=== PATIENT | male | born 1945 | race Caucasian/White ===

== ENCOUNTER → 2018-02-06 10:58 | Outpatient (CLI) | payer OTHER, SELFPAY ==
[2018-02-06 12:56] LABS: Add Manual Diff / Slide Review NO; Basophils Percent Auto 0.8 % (0-2); Hematocrit 45.1 % (41-53); Hemoglobin 15.6 g/dL (13.5-17.5); Lymphocytes Percent Auto 33.4 % (25-40); Mean Corpuscular HGB Conc 34.7 % (30-36); Neutrophils Absolute Auto 3400 /uL (3000-5900); Neutrophils Percent Auto 54.8 % (50-75); Platelet Count 172 X10^3/uL (150-400); Red Cell Distribution Width 13.4 % (11.6-14.8); White Blood Cell Count 6.1 X10^3/uL (4.5-11.0)
[2018-02-06 13:05] LABS: Aspartate Aminotransferase 56 IU/L (17-59); BUN Creatinine Ratio 22.5 (6-22); Calcium 9.7 mg/dL (8.4-10.2); Cholesterol 133 mg/dL (140-199); Estimated Glomerular Filt Rate > 60.0 mL/min (>60); Glucose 106 mg/dL (80-110); HDL Cholesterol 59 mg/dL (40-60); HEMOLYSIS 15 (0-50); LDL Cholesterol Calculated 61 mg/dL (<100); Potassium 4.4 mmol/L (3.4-5.1); Sodium 143 mmol/L (137-145); Triglycerides 66 mg/dL (35-150)
[2018-02-06 13:31] LABS: Prostate Specific Antigen 0.233 ng/mL (0.10-4.00)
[2018-02-06 13:52] LABS: Thyroid Stimulating Hormone 0.07 uIU/mL (0.47-4.68)
[2018-02-10 09:04] LABS: Lamotrigine Lamictal 9.2 mcg/mL (4.0-18.0)
== END ==
PROVIDERS: Family Provider Internal Medicine; PCP Internal Medicine; Visit Provider Internal Medicine
DX: G40.802 Other epilepsy, not intractable, without status epilepticus (principal); E78.00 Pure hypercholesterolemia, unspecified; Z00.00 Encounter for general adult medical examination without abnormal findings; N40.0 Benign prostatic hyperplasia without lower urinary tract symptoms
CPT/HCPCS: 36415; 80048; 80061; 80175; 84153; 84443; 84450; 85025

== ENCOUNTER → 2018-07-07 13:59 | Outpatient (CLI) | payer OTHER, SELFPAY ==
[2018-07-07 16:01] LABS: Vitamin B12 408 pg/mL (239-931)
== END ==
PROVIDERS: Family Provider Internal Medicine; PCP Internal Medicine; Visit Provider Internal Medicine
DX: E53.8 Deficiency of other specified B group vitamins (principal)
CPT/HCPCS: 36415; 82607

== ENCOUNTER → 2018-11-12 11:50 | Outpatient (CLI) | payer OTHER, SELFPAY ==
--- NOTE | 2018-11-12 | DI.RAD.S_ITS ---
PROCEDURE: XR CHEST 2V INDICATIONS: COUGH TECHNIQUE: 2 views of the chest were acquired. COMPARISON: [facility], , CHEST 1 VIEW, 04/10/2011, 11:03. FINDINGS: Surgical changes and devices: None. Lungs and pleura: Lungs are clear. No pleural effusions or pneumothorax. Mediastinum: Mediastinal contours are normal. Heart size is normal. Bones and chest wall: No suspicious bony abnormalities. Soft tissues appear unremarkable. IMPRESSION: No evidence acute pulmonary process. Dictated by: Erich Shah M.D. on 11/12/2018 at 13:27 Approved by: Erich Shah M.D. on 11/12/2018 at 13:29
[2018-11-12 12:31] LABS: B Type Natriuretic Peptide 248 (<100)
[2018-11-12 13:30] LABS: Blood Urea Nitrogen 16 mg/dL (9-20); Calcium 9.4 mg/dL (8.4-10.2); Carbon Dioxide 29 mmol/L (22-32); Chloride 100 mmol/L (98-107); Estimated Glomerular Filt Rate > 60.0 mL/min (>60); Glucose 95 mg/dL (80-110); HEMOLYSIS < 15 (0-50); Potassium 4.1 mmol/L (3.4-5.1); Sodium 140 mmol/L (137-145)
== END ==
PROVIDERS: PCP Internal Medicine; Visit Provider Student in an Organized Health Care Education/Training Program
DX: R60.9 Edema, unspecified (principal); R05 Cough
CPT/HCPCS: 36415; 71046; 80048; 83880

== ENCOUNTER → 2018-11-19 13:51 | Outpatient (CLI) | payer OTHER, SELFPAY ==
--- NOTE | 2018-11-19 | DI.ECHO.S_ITS ---
[facility] +---------+ : : [address] [place] : : : : [id number] : : : : Phone: [phone]+ Echocardiogram Report + + :Name: MAREI ADAMS Study Date: 11/19/2018 Height: 74 in : :[facility] Weight: 186 lb : : Gender: Male BSA: 2.1 m2 : :: 1945 Age: 73 yrs BP: 134/64 mmHg: :Reason For Study: Edema : : Performed By: Keyona Turner : :Referring: JANELLE WAITE : + + Interpretation Summary 1) Normal left ventricular size, wall motion, and systolic function (EF 55- 60%). 2) Mildly enlarged right ventricle with mildly reduced function. 3) There is severe biatrial enlargement. 4) There is a flat closure plane of the the mitral valve leaflets. There is mild mitral regurgitation. 5) There is mild to moderate aortic regurgitation. 6) A patent foramen ovale is present. The interatrial septum bows toward right atrium consistent with elevated left atrial pressure. 7) The right ventricular systolic pressure is estimated to be at least 33 mmHg based on an estimated right atrial pressure of 8 mm Hg. 8) No prior Echo available for comparison. Procedure: A two-dimensional transthoracic echocardiogram with color flow and Doppler was performed. The study quality was technically adequate. Comparison is made with the echocardiogram of 04-11-11. The patient was in normal sinus rhythm during the exam. Left Ventricle: The left ventricle is normal in size. Left ventricular wall thickness is at the upper limits of normal. The ejection fraction is estimated to be 55-60%. Left ventricular systolic function is normal. Diastolic parameters suggest a relaxation abnormality of the left ventricle, consistent with probable normal filling pressures. Right Ventricle: The right ventricle is mildly dilated. Right ventricular systolic function is mildly reduced. Atria: There is severe biatrial enlargement. A patent foramen ovale is present. The interatrial septum bows toward right atrium consistent with elevated left atrial pressure. Mitral Valve: There is a flat closure plane of the the mitral valve leaflets. There is mild mitral regurgitation. Aortic Valve: The aortic valve is trileaflet. Leaflet mobility is mildly reduced. There is no aortic valve stenosis. There is mild to moderate aortic regurgitation. Tricuspid Valve: The tricuspid valve leaflets are thin and pliable. There is mild tricuspid regurgitation. The right ventricular systolic pressure is estimated to be at least 33 mmHg based on an estimated right atrial pressure of 8 mm Hg. Pulmonic Valve: The pulmonic valve is not well visualized. There is trace pulmonic regurgitation. Great Vessels: The aortic root is mildly dilated. The ascending aorta is mildly enlarged. The IVC is of normal diameter and collapses less than 50% with a sniff. This suggests a right atrial pressure of 8 mm Hg. Pericardium/ Pleura There is no pericardial effusion. There is no pleural effusion. MMode/2D Measurements & Calculations LVIDd: 4.8 cm Ao root diam: 3.9 cm LVIDs: 2.9 cm Aortic Jxn: 3.0 cm FS: 38.6 % asc Aorta Diam: 3.8 cm IVSd: 1.1 cm Ao Arch Diam (Prox Trans): 3.1 cm LVPWd: 1.1 cm LV west. diameter/BSA (cm/m^2): 2.3 LV sys. diameter/BSA (cm/m^2): 1.4 LA dimension: 5.6 cm RA long axis: 7.6 cm LA A2 area: 42.8 cm2 RA area: 41.9 cm2 LA A4 area: 43.6 cm2 RA vol: 196.6 ml LA length (vol): 7.6 cm RA : 93.3 ml/m2 LA vol: 207.8 ml IVC diam: 1.9 cm LA vol index: 98.6 ml/m2 RVDd major: 5.8 cm RVD1 (basal): 5.1 cm RVD2 (mid): 4.5 cm ELIAN (plan): 2.1 cm2 Doppler Measurements & Calculations Ao V2 max: 172.8 cm/sec AI P1/2t: 371.8 msec Ao V2 mean: 118.2 cm/sec AI dec slope: 339.6 cm/sec2 Ao max P.0 mmHg Ao mean P.3 mmHg Ao V2 VTI: 37.4 cm MV E max prasanna: 67.0 cm/sec TR max prasanna: 250.3 cm/sec MV A max prasanna: 27.4 cm/sec TR max P.1 mmHg MV E/A: 2.4 PA V2 max: 83.0 cm/sec Med Peak E' Prasanna: 5.8 cm/sec PA V2 mean: 53.6 cm/sec E/E' med: 11.6 PA mean P.4 mmHg Lat Peak E' Prasanna: 11.4 cm/sec PA Accel Time: 0.14 sec E/E' lat: 5.9 E/e' average: 8.7 MV dec time: 0.16 sec MV P1/2t: 48.3 msec MR ERO: 0.19 cm2 MV P1/2t max prasanna: 66.7 cm/sec MR flow rate: 108.8 cm3/sec MVA(P1/2t): 4.6 cm2 MR PISA radius: 0.67 cm Reading Physician:04:50 PM
[2018-11-19 16:11] LABS: Blood Urea Nitrogen 14 mg/dL (9-20); Calcium 10.1 mg/dL (8.4-10.2); Carbon Dioxide 31 mmol/L (22-32); Chloride 98 mmol/L (98-107); Estimated Glomerular Filt Rate > 60.0 mL/min (>60); Glucose 97 mg/dL (80-110); HEMOLYSIS < 15 (0-50); Potassium 4.8 mmol/L (3.4-5.1); Sodium 140 mmol/L (137-145)
== END ==
PROVIDERS: PCP Internal Medicine; Visit Provider Student in an Organized Health Care Education/Training Program
DX: I08.3 Combined rheumatic disorders of mitral, aortic and tricuspid valves (principal); Q21.1 Atrial septal defect; R60.9 Edema, unspecified
CPT/HCPCS: 36415; 80048; 93306

== ENCOUNTER → 2019-05-25 13:38 | Outpatient (CLI) | payer OTHER, SELFPAY ==
[2019-05-28 14:05] LABS: Lamotrigine Lamictal 8.1 mcg/mL (4.0-18.0)
== END ==
PROVIDERS: PCP Internal Medicine; Visit Provider Specialist
DX: G40.119 Localization-related (focal) (partial) symptomatic epilepsy and epileptic syndromes with simple partial seizures, intractable, without status epilepticus (principal)
CPT/HCPCS: 36415; 80175

== ENCOUNTER → 2019-07-14 11:27 | Outpatient (CLI) | payer OTHER, SELFPAY ==
[2019-07-17 08:23] LABS: Lamotrigine Lamictal 13.3 mcg/mL (4.0-18.0)
== END ==
PROVIDERS: Family Provider Internal Medicine; PCP Internal Medicine; Visit Provider Specialist
DX: G40.119 Localization-related (focal) (partial) symptomatic epilepsy and epileptic syndromes with simple partial seizures, intractable, without status epilepticus (principal); G31.09 Other frontotemporal neurocognitive disorder; F02.80 Dementia in other diseases classified elsewhere, unspecified severity, without behavioral disturbance, psychotic disturbance, mood disturbance, and anxiety; F03.90 Unspecified dementia, unspecified severity, without behavioral disturbance, psychotic disturbance, mood disturbance, and anxiety
CPT/HCPCS: 36415; 80175

== ENCOUNTER → 2020-08-16 19:16 | Outpatient (ROUT) | payer OTHER, SELFPAY ==
[2020-08-16 19:30] LABS: Add Manual Diff / Slide Review NO; Basophils Absolute Auto 100 /uL (0-100); Basophils Percent Auto 0.9 % (0-2); Eosinophils Absolute Auto 100 /uL (0-450); Eosinophils Percent Auto 1.9 % (2-4); Hematocrit 45.4 % (41-53); Hemoglobin 15.2 g/dL (13.5-17.5); Lymphocytes Absolute Auto 1600 /uL (1100-4500); Lymphocytes Percent Auto 24.6 % (25-40); Mean Corpuscular HGB Conc 33.5 % (30-36); Mean Corpuscular Hemoglobin 33.5 PG (26-34); Monocytes Absolute Auto 400 /uL (0-900); Monocytes Percent Auto 6.7 % (3-14); Neutrophils Absolute Auto 4200 /uL (1500-7000); Neutrophils Percent Auto 65.9 % (50-75); Platelet Count 175 X10^3/uL (150-400); Red Blood Cell Count 4.54 X10^6/uL (4.5-5.9); Red Cell Distribution Width 13.8 % (11.6-14.8); White Blood Cell Count 6.3 X10^3/uL (4.5-11.0)
[2020-08-16 19:34] LABS: Alanine Aminotransferase 26 IU/L (<50); Albumin 4.9 g/dL (3.5-5.0); Albumin Globulin Ratio 1.5 (1.0-2.8); Alkaline Phosphatase 100 U/L (38-126); Aspartate Aminotransferase 40 IU/L (17-59); BUN Creatinine Ratio 19.5 (6-22); Bilirubin Total 1.1 mg/dL (0.2-1.3); Blood Urea Nitrogen 17 mg/dL (9-20); Calcium 9.5 mg/dL (8.4-10.2); Carbon Dioxide 29 mmol/L (22-32); Chloride 101 mmol/L (98-107); Cholesterol 146 mg/dL (140-199); Estimated Glomerular Filt Rate > 60.0 mL/min (>60); Globulin 3.3 g/dL (1.7-4.1); Glucose 124 mg/dL (80-110); HDL Cholesterol 79 mg/dL (40-60); HEMOLYSIS < 15 (0-50); LDL Cholesterol Calculated 52 mg/dL (<100); Potassium 4.3 mmol/L (3.4-5.1); Sodium 137 mmol/L (137-145); Total Protein 8.2 g/dL (6.3-8.2); Triglycerides 76 mg/dL (35-150)
[2020-08-16 20:04] LABS: Prostate Specific Antigen 0.446 ng/mL (0.10-4.00); TSH w/ Reflex to FT4 2.37 uIU/mL (0.47-4.68)
[2020-08-21 15:14] LABS: Lamotrigine Lamictal 10.1 ug/mL (2.0-20.0)
== END ==
PROVIDERS: Family Provider Internal Medicine; PCP Internal Medicine; Visit Provider Internal Medicine
DX: G40.802 Other epilepsy, not intractable, without status epilepticus (principal)
CPT/HCPCS: 80053; 80061; 80175; 84153; 84443; 85025

== ENCOUNTER → 2021-06-01 17:10 | Outpatient (CLI) | payer OTHER, SELFPAY ==
[2021-06-04 14:51] LABS: Lamotrigine Lamictal 10.9 ug/mL (2.0-20.0)
== END ==
PROVIDERS: Family Provider Internal Medicine; PCP Internal Medicine; Referring Provider Specialist; Visit Provider Specialist
DX: G40.109 Localization-related (focal) (partial) symptomatic epilepsy and epileptic syndromes with simple partial seizures, not intractable, without status epilepticus (principal)
CPT/HCPCS: 36415; 80175

== ENCOUNTER → 2021-07-16 15:51 | Outpatient (CLI) | payer OTHER, SELFPAY | PROVIDERS: Family Provider Internal Medicine; PCP Internal Medicine; Referring Provider Specialist; Visit Provider Specialist | DX: G40.109 Localization-related (focal) (partial) symptomatic epilepsy and epileptic syndromes with simple partial seizures, not intractable, without status epilepticus (principal) | CPT/HCPCS: 36415; 80175 ==

== ENCOUNTER → 2021-09-06 13:58 | Outpatient (CLI) | payer OTHER, SELFPAY ==
[2021-09-06 15:06] LABS: Add Manual Diff / Slide Review NO; Basophils Absolute Auto 0 /uL (0-100); Basophils Percent Auto 0.5 % (0-2); Eosinophils Absolute Auto 200 /uL (0-450); Eosinophils Percent Auto 2.1 % (2-4); Hematocrit 43.4 % (41-53); Hemoglobin 14.8 g/dL (13.5-17.5); Lymphocytes Absolute Auto 1400 /uL (1100-4500); Lymphocytes Percent Auto 19.1 % (25-40); Mean Corpuscular Hemoglobin 34.2 PG (26-34); Mean Corpuscular Volume 100.7 fL (80-100); Monocytes Absolute Auto 700 /uL (0-900); Monocytes Percent Auto 9.1 % (3-14); Neutrophils Absolute Auto 5200 /uL (1500-7000); Neutrophils Percent Auto 69.2 % (50-75); Platelet Count 182 X10^3/uL (150-400); Red Blood Cell Count 4.32 X10^6/uL (4.5-5.9); Red Cell Distribution Width 13.3 % (11.6-14.8); White Blood Cell Count 7.6 X10^3/uL (4.5-11.0)
[2021-09-06 15:49] LABS: Alanine Aminotransferase 32 IU/L (<50); Albumin 4.4 g/dL (3.5-5.0); Albumin Globulin Ratio 1.6 (1.0-2.8); Alkaline Phosphatase 83 U/L (38-126); Aspartate Aminotransferase 36 IU/L (17-59); BUN Creatinine Ratio 26.8 (6-22); Bilirubin Total 0.9 mg/dL (0.2-1.3); Bilirubin Unconjugated 0.9 mg/dL (0.0-1.1); Blood Urea Nitrogen 26 mg/dL (9-20); Calcium 9.2 mg/dL (8.4-10.2); Carbon Dioxide 31 mmol/L (22-32); Chloride 102 mmol/L (98-107); Estimated Glomerular Filt Rate > 60.0 mL/min (>60); Globulin 2.8 g/dL (1.7-4.1); Glucose 84 mg/dL (80-110); HEMOLYSIS < 15 (0-50); Potassium 4.4 mmol/L (3.4-5.1); Sodium 140 mmol/L (137-145); Total Protein 7.2 g/dL (6.3-8.2)
== END ==
PROVIDERS: Family Provider Internal Medicine; PCP Internal Medicine; Referring Provider Physician Assistant; Visit Provider Physician Assistant
DX: I27.82 Chronic pulmonary embolism (principal); I48.3 Typical atrial flutter; I48.0 Paroxysmal atrial fibrillation; R21 Rash and other nonspecific skin eruption
CPT/HCPCS: 36415; 80053; 80076; 85025

== ENCOUNTER → 2021-09-24 16:21 | Outpatient (CLI) | payer OTHER, SELFPAY ==
[2021-09-28 10:26] LABS: Levetiracetam Keppra 15.9 ug/mL (10.0-40.0)
== END ==
PROVIDERS: Family Provider Internal Medicine; PCP Internal Medicine; Referring Provider Specialist; Visit Provider Specialist
DX: G40.109 Localization-related (focal) (partial) symptomatic epilepsy and epileptic syndromes with simple partial seizures, not intractable, without status epilepticus (principal)
CPT/HCPCS: 36415; 80177

== ENCOUNTER → 2022-01-07 12:43 | Outpatient (CLI) | payer OTHER, SELFPAY ==
[2022-01-07 13:32] LABS: Hematocrit 47.6 % (41-53); Hemoglobin 15.9 g/dL (13.5-17.5); Mean Corpuscular HGB Conc 33.4 % (30-36); Mean Corpuscular Hemoglobin 33.5 PG (26-34); Mean Corpuscular Volume 100.4 fL (80-100); Platelet Count 186 X10^3/uL (150-400); Red Blood Cell Count 4.74 X10^6/uL (4.5-5.9); Red Cell Distribution Width 13.6 % (11.6-14.8); White Blood Cell Count 6.1 X10^3/uL (4.5-11.0)
[2022-01-07 13:59] LABS: Alanine Aminotransferase 20 IU/L (<50); Albumin 4.1 g/dL (3.5-5.0); Albumin Globulin Ratio 1.4 (1.0-2.8); Alkaline Phosphatase 94 U/L (38-126); Aspartate Aminotransferase 34 IU/L (17-59); BUN Creatinine Ratio 20.2 (6-22); Blood Urea Nitrogen 18 mg/dL (9-20); Calcium 8.8 mg/dL (8.4-10.2); Carbon Dioxide 30 mmol/L (22-32); Chloride 104 mmol/L (98-107); Cholesterol 111 mg/dL (140-199); Estimated Glomerular Filt Rate > 60 mL/min (>60); Glucose 96 mg/dL (80-110); HDL Cholesterol 51 mg/dL (40-60); HEMOLYSIS < 15 (0-50); LDL Cholesterol Calculated 35 mg/dL (<100); Potassium 4.4 mmol/L (3.4-5.1); Sodium 138 mmol/L (137-145); Total Protein 7.1 g/dL (6.3-8.2); Triglycerides 123 mg/dL (35-150); Uric Acid 4.5 mg/dL (3.5-8.5)
[2022-01-07 14:26] LABS: TSH w/ Reflex to FT4 2.32 uIU/mL (0.47-4.68)
== END ==
PROVIDERS: Family Provider Internal Medicine; PCP Internal Medicine; Referring Provider Internal Medicine; Visit Provider Internal Medicine
DX: E78.2 Mixed hyperlipidemia (principal); I10 Essential (primary) hypertension; I48.20 Chronic atrial fibrillation, unspecified; M1A.9XX0 Chronic gout, unspecified, without tophus (tophi); Z79.01 Long term (current) use of anticoagulants; Z86.711 Personal history of pulmonary embolism
CPT/HCPCS: 36415; 80053; 80061; 84443; 84550; 85027

== ENCOUNTER → 2022-02-21 11:27 | Outpatient (CLI) | payer OTHER, SELFPAY ==
[2022-02-21 13:52] LABS: INR 2.2 (0.9-1.3)
== END ==
PROVIDERS: Family Provider Internal Medicine; PCP Internal Medicine; Referring Provider Registered Nurse Diabetes Educator; Visit Provider Registered Nurse Diabetes Educator
DX: Z79.01 Long term (current) use of anticoagulants (principal)
CPT/HCPCS: 36415; 85610

== ENCOUNTER → 2022-03-22 11:06 | Outpatient (CLI) | payer OTHER, SELFPAY | PROVIDERS: Family Provider Internal Medicine; PCP Internal Medicine; Referring Provider Internal Medicine; Visit Provider Internal Medicine | DX: Z13.820 Encounter for screening for osteoporosis (principal); M85.89 Other specified disorders of bone density and structure, multiple sites | CPT/HCPCS: 77080 ==

== ENCOUNTER → 2022-04-10 09:19 | Outpatient (CLI) | payer OTHER, SELFPAY ==
[2022-04-10 11:01] LABS: Hemoglobin 13.3 g/dL (13.5-17.5); Mean Corpuscular HGB Conc 33.2 % (30-36); Mean Corpuscular Hemoglobin 32.6 PG (26-34); Mean Corpuscular Volume 98.3 fL (80-100); Platelet Count 190 X10^3/uL (150-400); Red Blood Cell Count 4.07 X10^6/uL (4.5-5.9); White Blood Cell Count 4.9 X10^3/uL (4.5-11.0)
[2022-04-10 11:22] LABS: Alanine Aminotransferase 18 IU/L (<50); Albumin 4.3 g/dL (3.5-5.0); Albumin Globulin Ratio 1.6 (1.0-2.8); Alkaline Phosphatase 99 U/L (38-126); Aspartate Aminotransferase 33 IU/L (17-59); BUN Creatinine Ratio 23.2 (6-22); Bilirubin Total 0.6 mg/dL (0.2-1.3); Blood Urea Nitrogen 16 mg/dL (9-20); Calcium 8.7 mg/dL (8.4-10.2); Carbon Dioxide 29 mmol/L (22-32); Chloride 103 mmol/L (98-107); Estimated Glomerular Filt Rate > 60 mL/min (>60); Globulin 2.7 g/dL (1.7-4.1); Glucose 88 mg/dL (80-110); HEMOLYSIS < 15 (0-50); Potassium 3.7 mmol/L (3.4-5.1); Sodium 140 mmol/L (137-145)
[2022-04-10 11:53] LABS: Testosterone 186 ng/dL (71.8-623)
[2022-04-12 20:28] LABS: Parathyroid Hormone, Intact 75 pg/mL (15-65)
== END ==
PROVIDERS: Family Provider Internal Medicine; PCP Internal Medicine; Referring Provider Internal Medicine; Visit Provider Internal Medicine
DX: E21.3 Hyperparathyroidism, unspecified (principal); M85.80 Other specified disorders of bone density and structure, unspecified site
CPT/HCPCS: 36415; 80053; 82310; 83970; 84403; 85027

== ENCOUNTER → 2022-05-15 16:11 | Outpatient (CLI) | payer OTHER, SELFPAY ==
[2022-05-15 17:51] LABS: INR 3.2 (0.9-1.3); Prothrombin Time 37.6 SECONDS (10.1-12.7)
== END ==
PROVIDERS: Family Provider Internal Medicine; PCP Internal Medicine; Referring Provider Internal Medicine; Visit Provider Internal Medicine
DX: Z79.01 Long term (current) use of anticoagulants (principal)
CPT/HCPCS: 36415; 85610

== ENCOUNTER → 2022-06-07 14:44 | Outpatient (CLI) | payer OTHER, SELFPAY ==
[2022-06-07 16:05] LABS: INR 2.6 (0.9-1.3); Prothrombin Time 30.6 SECONDS (10.1-12.7)
== END ==
PROVIDERS: Family Provider Internal Medicine; PCP Internal Medicine; Referring Provider Internal Medicine; Visit Provider Internal Medicine
DX: Z79.01 Long term (current) use of anticoagulants (principal)
CPT/HCPCS: 85610

== ENCOUNTER → 2022-06-14 14:53 | Outpatient (CLI) | payer OTHER, SELFPAY ==
[2022-06-14 17:55] LABS: Prolactin 11.1 ng/mL (3.7-17.9)
[2022-06-14 17:59] LABS: Follicle Stimulating Hormone 59.8 mIU/mL; Luteinizing Hormone 26.6 mIU/mL
[2022-06-14 18:12] LABS: Testosterone 277 ng/dL (71.8-623)
== END ==
PROVIDERS: Family Provider Internal Medicine; PCP Internal Medicine; Referring Provider Internal Medicine; Visit Provider Internal Medicine
DX: D35.2 Benign neoplasm of pituitary gland (principal)
CPT/HCPCS: 36415; 83001; 83002; 84146; 84403; 84443

== ENCOUNTER → 2022-06-25 11:31 | Outpatient (CLI) | payer OTHER, SELFPAY ==
[2022-06-25 13:35] LABS: Add Manual Diff / Slide Review NO; Basophils Absolute Auto 0 /uL (0-100); Basophils Percent Auto 0.8 % (0-2); Eosinophils Absolute Auto 200 /uL (0-450); Eosinophils Percent Auto 5.3 % (2-4); Hematocrit 44.9 % (41-53); Lymphocytes Absolute Auto 1000 /uL (1100-4500); Mean Corpuscular HGB Conc 33.5 % (30-36); Mean Corpuscular Hemoglobin 32.7 PG (26-34); Mean Corpuscular Volume 97.5 fL (80-100); Monocytes Absolute Auto 400 /uL (0-900); Monocytes Percent Auto 8.6 % (3-14); Neutrophils Absolute Auto 2900 /uL (1500-7000); Neutrophils Percent Auto 63.3 % (50-75); Platelet Count 162 X10^3/uL (150-400); Red Cell Distribution Width 13.6 % (11.6-14.8); White Blood Cell Count 4.5 X10^3/uL (4.5-11.0)
[2022-06-25 14:01] LABS: Alanine Aminotransferase 23 IU/L (<50); Albumin 4.4 g/dL (3.5-5.0); Albumin Globulin Ratio 1.4 (1.0-2.8); Alkaline Phosphatase 85 U/L (38-126); Aspartate Aminotransferase 37 IU/L (17-59); BUN Creatinine Ratio 19.8 (6-22); Bilirubin Total 0.9 mg/dL (0.2-1.3); Blood Urea Nitrogen 16 mg/dL (9-20); Calcium 9.1 mg/dL (8.4-10.2); Carbon Dioxide 33 mmol/L (22-32); Chloride 99 mmol/L (98-107); Estimated Glomerular Filt Rate > 60 mL/min (>60); Globulin 3.2 g/dL (1.7-4.1); Glucose 64 mg/dL (80-110); HEMOLYSIS < 15 (0-50); Potassium 4.1 mmol/L (3.4-5.1); Sodium 141 mmol/L (137-145); Total Protein 7.6 g/dL (6.3-8.2)
[2022-06-27 13:57] LABS: Levetiracetam Keppra 10.6 ug/mL (10.0-40.0)
== END ==
PROVIDERS: Family Provider Internal Medicine; PCP Internal Medicine; Referring Provider Psychiatry & Neurology Neurology; Visit Provider Psychiatry & Neurology Neurology
DX: G40.109 Localization-related (focal) (partial) symptomatic epilepsy and epileptic syndromes with simple partial seizures, not intractable, without status epilepticus (principal); Z51.81 Encounter for therapeutic drug level monitoring
CPT/HCPCS: 36415; 80053; 80177; 85025

== ENCOUNTER → 2022-07-04 12:00 | Outpatient (CLI) | payer OTHER, SELFPAY ==
[2022-07-04 12:55] LABS: INR 2.8 (0.9-1.3); Prothrombin Time 32.7 SECONDS (10.1-12.7)
[2022-07-04 13:09] LABS: C-Reactive Protein Quant < 0.5 mg/dL (<1.0)
[2022-07-08 17:41] LABS: ANA Screen, IFA Negative (.)
== END ==
PROVIDERS: Family Provider Internal Medicine; PCP Internal Medicine; Referring Provider Physician Assistant; Visit Provider Physician Assistant
DX: R21 Rash and other nonspecific skin eruption (principal); I48.20 Chronic atrial fibrillation, unspecified; Z79.01 Long term (current) use of anticoagulants; Z86.711 Personal history of pulmonary embolism
CPT/HCPCS: 36415; 85610; 86038; 86140

== ENCOUNTER → 2022-07-12 15:18 | Outpatient (CLI) | payer OTHER, SELFPAY ==
[2022-07-12 16:28] LABS: Add Manual Diff / Slide Review NO; Basophils Absolute Auto 0 /uL (0-100); Basophils Percent Auto 0.8 % (0-2); Eosinophils Absolute Auto 100 /uL (0-450); Eosinophils Percent Auto 2.1 % (2-4); Hematocrit 41.7 % (41-53); Lymphocytes Absolute Auto 1000 /uL (1100-4500); Lymphocytes Percent Auto 22.4 % (25-40); Mean Corpuscular HGB Conc 33.4 % (30-36); Mean Corpuscular Hemoglobin 32.2 PG (26-34); Mean Corpuscular Volume 96.3 fL (80-100); Monocytes Absolute Auto 400 /uL (0-900); Monocytes Percent Auto 8.2 % (3-14); Neutrophils Absolute Auto 3000 /uL (1500-7000); Neutrophils Percent Auto 66.5 % (50-75); Platelet Count 181 X10^3/uL (150-400); Red Blood Cell Count 4.33 X10^6/uL (4.5-5.9); Red Cell Distribution Width 13.3 % (11.6-14.8); White Blood Cell Count 4.5 X10^3/uL (4.5-11.0)
[2022-07-12 17:35] LABS: Erythrocyte Sedimentation Rate 6 MM/HR (0-15)
[2022-07-13 04:14] LABS: IGA 481 mg/dL (61-437); IGG 993 mg/dL (603-1613); IGM 63 mg/dL (15-143)
== END ==
PROVIDERS: Family Provider Internal Medicine; PCP Internal Medicine; Referring Provider Physician Assistant; Visit Provider Physician Assistant
DX: R21 Rash and other nonspecific skin eruption (principal)
CPT/HCPCS: 36415; 82784; 85025; 85651

== ENCOUNTER → 2022-11-08 14:52 | Outpatient (CLI) | payer OTHER, SELFPAY ==
--- NOTE | 2022-11-08 14:56 | DI.RAD.S_ITS ---
PROCEDURE: XR HIP W PEL IF DONE RT 2V INDICATIONS: right hip pain TECHNIQUE: 3 views of the hip were acquired. COMPARISON: None. FINDINGS: Bones: Moderate right hip joint space narrowing with subchondral sclerosis. No remodeling present. No significant marginal osteophyte. Degenerative changes noted lower lumbar spine. Atherosclerotic vascular calcification present. Soft tissues: No suspicious soft tissue calcifications or masses. IMPRESSION: Moderate right hip osteoarthritis Degenerative lower lumbar spine Approved by: Xavi Valero M.D. on 11/08/2022 at 17:41
== END ==
PROVIDERS: Family Provider Internal Medicine; PCP Internal Medicine; Referring Provider Internal Medicine; Visit Provider Internal Medicine
DX: M16.11 Unilateral primary osteoarthritis, right hip (principal); M47.816 Spondylosis without myelopathy or radiculopathy, lumbar region
CPT/HCPCS: 73502

== ENCOUNTER → 2023-01-24 10:52 | Outpatient (CLI) | payer OTHER, SELFPAY ==
[2023-01-24 11:40] LABS: Add Manual Diff / Slide Review NO; Basophils Absolute Auto 0 /uL (0-100); Basophils Percent Auto 0.6 % (0-2); Eosinophils Absolute Auto 0 /uL (0-450); Eosinophils Percent Auto 0.6 % (2-4); Hemoglobin 13.7 g/dL (13.5-17.5); Lymphocytes Absolute Auto 1100 /uL (1100-4500); Lymphocytes Percent Auto 17.2 % (25-40); Mean Corpuscular HGB Conc 34.2 % (30-36); Mean Corpuscular Hemoglobin 33.1 PG (26-34); Monocytes Absolute Auto 400 /uL (0-900); Monocytes Percent Auto 6.9 % (3-14); Neutrophils Absolute Auto 4800 /uL (1500-7000); Neutrophils Percent Auto 74.7 % (50-75); Platelet Count 177 X10^3/uL (150-400); Red Blood Cell Count 4.12 X10^6/uL (4.5-5.9); Red Cell Distribution Width 13.4 % (11.6-14.8); White Blood Cell Count 6.4 X10^3/uL (4.5-11.0)
[2023-01-24 12:31] LABS: Appearance Urine UA CLEAR; Bilirubin Urine UA 1+ (NEGATIVE); Color Urine UA YELLOW; Glucose Urine UA NEGATIVE (Negative); Ketones Urine UA TRACE (NEGATIVE); Leukocyte Esterase Urine UA NEGATIVE (NEGATIVE); Nitrite Urine UA NEGATIVE (Negative); Occult Blood Urine UA NEGATIVE (Negative); Protein Urine UA TRACE (Negative); Specific Gravity Urine UA >=1.030 (1.000-1.035); pH Urine UA 5.5 (4.5-8.0)
[2023-01-24 12:35] LABS: Ictotest Urine Negative (Negative)
[2023-01-24 13:07] LABS: Bacteria Urine None Seen; Culture Indicated Urine Cult Not Indicated; RBC Urine None Seen (0-5/HPF); Squamous Epithelial Cell Urine None Seen (0-5/HPF); WBC Urine 0-1/HPF (0-5/HPF)
[2023-01-24 13:50] LABS: BUN Creatinine Ratio 24.5 (6-22); Blood Urea Nitrogen 24 mg/dL (9-20); Calcium 9.1 mg/dL (8.4-10.2); Carbon Dioxide 26 mmol/L (22-32); Chloride 102 mmol/L (98-107); Estimated Glomerular Filt Rate > 60 mL/min (>60); Glucose 129 mg/dL (80-110); HEMOLYSIS < 15 (0-50); Potassium 4.1 mmol/L (3.4-5.1); Sodium 138 mmol/L (137-145)
[2023-01-25 09:51] LABS: x Labcorp Estim. Avg Glu (eAG) 105 mg/dL (.); x Labcorp Hemoglobin A1c 5.3 % (4.8-5.6)
== END ==
PROVIDERS: Family Provider Internal Medicine; PCP Internal Medicine; Referring Provider Orthopaedic Surgery; Visit Provider Orthopaedic Surgery
DX: Z01.818 Encounter for other preprocedural examination (principal); Z01.812 Encounter for preprocedural laboratory examination; R73.9 Hyperglycemia, unspecified; N39.0 Urinary tract infection, site not specified
CPT/HCPCS: 36415; 80048; 81001; 83036; 85025; 93005

== ENCOUNTER → 2023-02-04 14:56 | Outpatient (CLI) | payer OTHER, SELFPAY ==
[2023-02-06 10:37] LABS: Levetiracetam Keppra 21.4 ug/mL (10.0-40.0)
== END ==
PROVIDERS: Family Provider Internal Medicine; PCP Internal Medicine; Referring Provider Internal Medicine; Visit Provider Internal Medicine
DX: G40.909 Epilepsy, unspecified, not intractable, without status epilepticus (principal)
CPT/HCPCS: 36415; 80177

== ENCOUNTER → 2023-02-14 15:36 | Outpatient (CLI) | payer OTHER, SELFPAY ==
[2023-02-14 16:56] LABS: BUN Creatinine Ratio 22.2 (6-22); Blood Urea Nitrogen 22 mg/dL (9-20); Calcium 8.7 mg/dL (8.4-10.2); Carbon Dioxide 32 mmol/L (22-32); Chloride 96 mmol/L (98-107); Estimated Glomerular Filt Rate > 60 mL/min (>60); Glucose 97 mg/dL (80-110); HEMOLYSIS 47 (0-50); Potassium 4.2 mmol/L (3.4-5.1); Sodium 136 mmol/L (137-145)
== END ==
PROVIDERS: Family Provider Internal Medicine; PCP Internal Medicine; Referring Provider Internal Medicine; Visit Provider Internal Medicine
DX: I48.20 Chronic atrial fibrillation, unspecified (principal); Z86.711 Personal history of pulmonary embolism
CPT/HCPCS: 36415; 80048

== ENCOUNTER 2023-03-23 10:47 | Observation (INO) | payer OTHER, SELFPAY ==
[2023-03-19 10:49] VITALS: BMI 21.1
[2023-03-21] VITALS (9 sets, daily range): BP systolic 95–126; BP diastolic 64–86; PULSE 44–95; RESP 11–18; TEMP 35.5–36.3; O2SAT 80–100; BMI 21.1
--- NOTE | 2023-03-21 | DI.RAD.S_ITS ---
PROCEDURE: XR HIP W PEL IF DONE RT 2V INDICATIONS: RT TOTAL HIP TECHNIQUE: 5 intraoperative fluoroscopic images of right hip acquired. COMPARISON: [facility], CR, XR HIP W PEL IF DONE RT 2V, 11/08/2022, 14:55. FINDINGS: Intraoperative fluoroscopic images of right hip shows right total hip arthroplasty in progress. IMPRESSION: Fluoro guidance was provided intraoperatively for right total hip arthroplasty. Dictated by: Bertrand Oden M.D. on 03/21/2023 at 17:05 Approved by: Bertrand Oden M.D. on 03/21/2023 at 17:05
--- NOTE | 2023-03-21 06:00 | DI.RAD.S_ITS ---
PROCEDURE: XR HIP W PEL IF DONE RT 2V INDICATIONS: Postop TECHNIQUE: AP pelvis and lateral view of the right hip acquired. COMPARISON: [facility], , XR HIP W PEL IF DONE RT 2V, 03/21/2023, 14:14. FINDINGS: Bones: Patient is status post right total hip arthroplasty, with hardware components in expected positions. The hip joint appears congruent. The visualized bony structures appear intact. Generalized osteopenia. Degenerative changes are seen in the included lumbar spine. Eang-in-ylyaizza degenerative changes in the left hip. Soft tissues: Overlying postoperative changes are noted. No suspicious soft tissue densities. IMPRESSION: Status post right hip arthroplasty with expected postoperative findings. Approved by: Yohannes Dove M.D. on 03/21/2023 at 21:23
[2023-03-21] MEDS: ACETAMINOPHEN 325 MG TABLET 975 MG PO (10:30)
[2023-03-21] MEDS: CELECOXIB 200 MG CAPSULE PO (10:31)
[2023-03-21] MEDS: PREGABALIN 75 MG CAPSULE PO (10:31)
[2023-03-21] MEDS: LACTATED RINGERS 1,000 ML 42 ML IV ×2 (10:32→14:27)
[2023-03-21] MEDS: VANCOMYCIN 1,000 MG/200 ML PIGGYBACK 200 MG IV (11:41)
--- NOTE | 2023-03-21 12:24 | PM.PREOP ---
Pre-operative Note Interval Note History & Physical reviewed/Exam performed by Physician: Yes Changes to H&P: No
--- NOTE | 2023-03-21 12:25 | P.OP_ITS ---
Operative Date/Time/Diagnoses Date of procedure: 03/21/23 Time of procedure: 13:00 Pre-op diagnosis: Severe right hip OA Post-op diagnosis: same Procedure & Clinicians Procedure: Right total hip arthroplasty anterior approach Same procedure as scheduled: Yes Indications: The patient has had progressively worsening right hip pain with radiographic changes consistent with arthritis. Non-operative management has failed and the patient has requested total hip replacement. The risks, benefits and alternatives to surgery were discussed with the patient prior to proceeding. Risks discussed included, but were not limited to, failure to relieve pain, leg length discrepancy, dislocation, stiffness, infection, nerve damage, deep venous thrombosis, pulmonary embolism, stroke, coma, heart attack, permanent paralysis and , as well as the potential need for eventual revision of the prosthetic. Surgeon: Karol Feng Tour Driver: Adrianne Sahu Anesthesia Type: General and Spinal Operative Notes Findings: Severe right hip OA, adequate stability, soft bone, Closure Type: primary Specimen(s): none sent Prosthetic devices, grafts, tissues, transplants, or devices: [employer]hew size 58 R3 cup, 36 x 58 neutral poly liner, 36+ 0 cobalt chrome head,0ne 6.5 screw, polar size 8 standard collared stem Estimated Blood Loss (mL): 250 Blood products transfused: none Procedure in detail: The patient was brought to the operating room. Patient was carefully positioned in the supine position. Time-out was performed and antibiotics were given. Anesthesia was induced. He was positioned in the on the table in order to allow hyperextension of the hip. The right lower extremity was prepped and draped in a standard sterile fashion. An anterior right hip incision was made 1 fingerbreadth lateral to the anterior superior iliac spine and extended distally towards the greater trochanter. Dissection was carried out through skin and subcutaneous tissues. Superficial hemostasis was achieved. The fascia over the tensor fascia sadiq was defined and incised with a knife. Two Allis clamps were used to grasp the fascia. Tensor fascia sadiq was retracted laterally. A gelpi retractor was placed. Dissection was carried out down along the neck. The circumflex vessels were carefully identified and cauterized with the Aqua Mantis. A PA was used in the procedure and was essential for retraction and safe impla ntation of the components. There was good visualization of the femoral neck. A Cobra was placed superior to the neck and the gluteus fibers were carefully stripped from that superior aspect of the capsule. A 2nd retractor was placed along the inferior aspect of the neck. The rectus insertion along the capsule was partially released. A 3rd retractor that was then gently placed over the rim of the acetabulum under the rectus. Capsule was carefully incised and released from the intertrochanteric line circumferentially superior to the mid sagittal line and inferiorly to the mid sagittal line until the lesser trochanter was palpable. A tag stitch was placed both in the superior and inferior limb of the capsular insertion. Along the acetabulum capsule was also released up to the mid sagittal 12:00 position. A portion of the labrum was resected. A saw was used to perform an osteotomy at the level of the intertrochanteric line and the junction of the superior femoral neck leaving approximately 1 finger breath of residual inferior neck above the lesser trochanter. A 2nd cut was made along the femoral neck at the base of the head and a napkin ring of neck was removed. Corkscrew was placed in the femoral head and the head was removed without difficulty. Retractors were then repositioned around the acetabulum. Residual labrum was resected and additional osteophytes were removed. A reamer that was 4 mm below the templated size was placed by hand in the acetabulum and it was reamed to centralize the acetabulum. It was then reamed up to 2 under the templated size and fluoroscopy was brought in to confirm the position of the reaming and depth of reaming. I reamed 1 under the anticipated size. A trial cup was placed and noted that it was appropriately sized and fluoroscopy confirmed position and depth. The component was open and inserted without difficulty fluoroscopic imaging was used to confirm that the cup had been adequately seated and was well positioned. It was further stabilized with 6.5 screw. Neutral poly liner was placed. The cup was tested and noted to be stable. Attention was then directed to the femur. The femur was gently hyperextended additional capsular release was performed as needed in order to allow adequate visualization of the proximal femur with elevation of the femur. Patient was placed in a hyperextended slightly adducted position with maximum external rotation. Box osteotome was used to check for any residual neck as well as sclerotic bone along the trochanter. [place] pepper was placed in the femur. Additional broaching was performed. Canal finder was used to determine the alignment of the canal and position. Size 1 broach was placed. The canal was then appropriately broached up to the templated size as long as there was adequate stability of the broach and serial advancement of the broach without excessive impingement. Specific attention was directed at avoiding varus attempting to direct the distal aspect of the broach more anteriorly and avoiding excessive anteversion. Trial reduction showed acceptable range of motion, good stability, no posterior impingement, pentecostalism of leg length and appropriate lateral shuck. I also hyperflexed the hip and checked that there was no impingement anteriorly and there was good stability with flexion, adduction and internal rotation. Marcaine and Exparel were injected. The stem was placed without difficulty. Repeat trial reduction and x-ray showed acceptable overall position, length, and no evidence of the femoral fracture. Final head was placed. Wound was meticulously irrigated with normal saline. The hip was reduced and additional Exparel and Marcaine were injected. The capsule was closed with interrupted nonabsorbable sutures. The fascia of the tensor was closed with interrupted and running Vicryl. No drain was placed. Any tensor fascia sadiq muscle that appeared to be contused or injured which was a minimal amount was carefully resected. Capsule around the tensor was injected with Exparel and Marcaine. The skin was closed with barbed stitches for the subcutaneous tissue and skin. We also used surgical glue. The wound was dressed sterilely. Brief Betadine soak was also used and was meticulously irrigated with normal saline. Patient was transferred to recovery room in satisfactory condition. Complications: none Post-operative Condition: stable Disposition: Acute Care Plan for aftercare: The patient will be maintained on a standard total hip replacement protocol with weight bearing as tolerated and anterior hip precautions. The patient will receive dabigatran and sequential compression devices for DVT prophylaxis. The patient will be discharged home when safe for the home environment.
[2023-03-21] MEDS: CEFAZOLIN 2 GM/100 ML PREMIX 100 ML IV ×2 (13:08→21:22)
[2023-03-21] MEDS: TRANEXAMIC ACID 1,000 MG in SODIUM CHLORIDE 0.9% 100 ML 200 MG IV (13:08)
--- NOTE | 2023-03-21 13:44 | SUR.OPER ---
Supine on padded Tutor Key table with bilateral legs secured in padded positioning boots and suspended in positioning spars, operative leg in traction per surgeon. Head on one pillow. Arm on non-operative side secured on padded armboard <90 degrees abduction. Arm on operative side padded and resting across chest then secured with tape over sheet. Padded perineal post in place per surgeon.
[2023-03-21] MEDS: BUPIVACAINE 0.25% (PF) 60 ML, EPINEPHrine 0.3 MG INJ (13:49)
[2023-03-21] MEDS: BUPIVACAINE LIPOSOME 266 MG/20 ML VIAL INJ (15:15)
--- NOTE | 2023-03-21 15:47 | SUR.PHASEI ---
pt put on oxygen
[2023-03-21] MEDS: ACETAMINOPHEN 325 MG TABLET 650 MG PO ×2 (18:04→22:45)
[2023-03-21] MEDS: LACTATED RINGERS 1,000 ML 100 ML IV (18:04)
--- NOTE | 2023-03-21 18:40 | PC.NURSE ---
Day shift: Pt admitted to the floor at 1645. Pt intermittently de-sats to 88% oxygen, though his fingers and toes are cold at baseline. Put O2 monitor on his earlobe, slightly improved though pt's O2 still intermittently dropping. 4L O2 via NC. Taught patient to use incentive spirometer and encouraged to use it multiple times an hour while awake. HR also running low - mid 40s. Pt reports this is baseline for him. Pt denies pain. Aquacel dressing on anterior R hip is C/D/I. Pt has multiple scattered abrasions on upper back and on R shoulder. Pt reports that he often picks at this skin. No signs of any of them being infected. Pt tolerating general diet. No nausea or vomitting. Voiding in the urinal. LR via PIV at 100mL/hr. Will continue to monitor.
[2023-03-21] MEDS: DABIGATRAN 75 MG CAPSULE 150 MG PO (21:22)
[2023-03-21] MEDS: TRAMADOL 50 MG TABLET 25 MG PO (21:22)
[2023-03-21] MEDS: DOCUSATE 100 MG CAPSULE PO (21:22)
[2023-03-21] MEDS: levETIRAcetam 250 MG TABLET 500 MG PO (21:23)
[2023-03-21] MEDS: METOPROLOL IR 25 MG TABLET 12.5 MG PO (21:23)
[2023-03-22 00:55] VITALS: BP 113/76; PULSE 91; RESP 16; TEMP 36.2; O2SAT 100
[2023-03-22 01:15] VITALS: BP 101/70; PULSE 80; RESP 18; TEMP 36.1; O2SAT 100
[2023-03-22 04:23] VITALS: BP 108/66; PULSE 88; RESP 18; TEMP 36; O2SAT 99
[2023-03-22] MEDS: CEFAZOLIN 2 GM/100 ML PREMIX 100 ML IV (05:13)
[2023-03-22 06:22] LABS: Hematocrit 41.4 % (41-53); Hemoglobin 13.9 g/dL (13.5-17.5)
[2023-03-22] MEDS: levETIRAcetam 250 MG TABLET 500 MG PO ×2 (09:09→20:53)
[2023-03-22] MEDS: FUROSEMIDE 20 MG TABLET 40 MG PO (09:10)
[2023-03-22] MEDS: DOCUSATE 100 MG CAPSULE PO ×2 (09:10→20:54)
[2023-03-22] MEDS: DABIGATRAN 75 MG CAPSULE 150 MG PO ×2 (09:10→20:54)
[2023-03-22] MEDS: METOPROLOL IR 25 MG TABLET 12.5 MG PO ×2 (09:10→20:53)
[2023-03-22 09:13] VITALS: BP 117/75; PULSE 94; RESP 18; TEMP 37.2; O2SAT 98
--- NOTE | 2023-03-22 10:36 | PT.IIE ---
Current Diagnoses Unilateral primary osteoarthritis, right hip (03/21/23) Surgery Performed Operation Date: 03/21/23 12:00 Actual Procedures p Total Hip Arthroplasty/Anterior Approach(Right) - Karol Feng MD Surgical History (Last Reviewed 03/22/23 @ 11:30 by Mia Jackson PA-C) Anesthesia Brain abscess (~2003) History of Achilles tendon repair (~2007) History of hernia repair (~1975) Hx of colonoscopy Hx of craniotomy (2003) Medical History (Last Reviewed 03/22/23 @ 11:30 by Mia Jackson PA-C) Amblyopia BPH w urinary obs/LUTS Chicken pox (~1955) Chronic anticoagulation Chronic atrial fibrillation Chronic pruritic rash in adult Essential hypertension (~1975) Fractures (~1966) Gout (~1980) Hammertoe of right foot History of pulmonary embolism (~2011) Localization-related epilepsy Measles (~1957) Mixed hyperlipidemia ENMA (obstructive sleep apnea) Osteoarthritis of right hip Osteopenia Rash Seizure disorder (~2004) Venous (peripheral) insufficiency Physical Therapy Inpatient Evaluation/Re-Eval M1 PT/OT-IP Prior Functional Status Start: 03/22/23 12:39 Freq: NEEDED Status: Active Protocol: Document 03/22/23 10:36 AB (Rec: 03/22/23 13:02 AB [id number]) Medical Review Prior Functional Status Medical History Reviewed Yes Communication able to make needs known Mobility and Gait pt stated that he is modified independent with all mobilities and ambulation without AD but started using his hurrycane last oct 2022 due to hip pain Social History Household Members spouse Living Arrangements House Number of Floors (Floors) Two Floors Number of Stairs To Enter/Railing? 3 steps without rails to enter 7 steps B rails + landing +7 steps B rails to get to bedroom level Home Environment Standard Height Toilet,Walk in Shower Home Equipment Front Wheel Walker,Raised Toilet Seat Without Armrests, Shower Seat with Backrest,Hand Held Shower,Grab Bars In Shower Additional Social History Comment pt has a toilet safety frame pt has a hurrycane and a day bed M2 PT-IP Current Condition Start: 03/22/23 12:39 Freq: NEEDED Status: Active Protocol: Document 03/22/23 10:36 AB (Rec: 03/22/23 13:02 AB [email or web address]) Physical Therapy Current Condition Current Condition Evaluation Date 03/22/23 Treatment Diagnosis s/p R YAZMIN anterior approach; difficulty in walking Onset Date 03/21/23 M3 PT-IP Subjective Start: 03/22/23 12:39 Freq: NEEDED Status: Active Protocol: Document 03/22/23 10:36 AB (Rec: 03/22/23 13:02 AB [email or web address]) Subjective Physical Therapy Visit Type Type Initial Evaluation Visit Start Time 10:36 Visit Stop Time 11:45 Total Visit Minutes 69 Number of MUSICAL INSTRUMENT MAKER OR REPAIRER Visits 0 Physical Therapy Visit Comments Patient Comments agreeable to do PT Therapy Pain Assessment Pain When Pain Assessed During Mobility Pain Present Pain Present Pain Reported Location Right Hip Scale Used pain scale not stated Pain Management Techniques Distraction,Modification of Treatment,Re-positioning, Timing of Activity with Medications M4 PT-IP Mobility and Gait Start: 03/22/23 12:39 Freq: NEEDED Status: Active Protocol: Document 03/22/23 10:36 AB (Rec: 03/22/23 13:02 AB [id number]) PT-Bed Mobility Assessment Supine to Sit Supine to Sit Standby Assistance PT-Transfer Assessment Sit to and From Stand Sit to and from Stand Moderate Assistance,1 Person Assistance,Use of Upper Extremities Equipment Transfer Assistive Device Gait Belt,Front Wheeled Walker Orthotic/Prosthetic Devices or Brace: No Transfers Transfer Destination Chair Transfer Technique ambulated Transfer Ability Level of Assist Moderate Assistance,1 Person Assistance,Use of Upper Extremities Comments Mobility Comments pt supine in bed. spouse in room. BP in supine 89/64. rechecked: 99/61. BP monitored educated pt and spouse regarding pt's YAZMIN anterior precautions. pt requires cues to recall. checked ROM and MMT. found pt's supine position with B hip ER. educated pt and spouse on proper bed positioning and how to position pt to prevent R hip from ER. pt also has bilateral ankle eversion. completed supine to sit SBA with max cues for techniques. no c/o dizziness/ lightheadedness. BP checked: 99/67. reminded pt of his hip precautions. completed sit to stand mod A and max cues. ambulated ~ 15 ft towards the chair using FWW mod A and cues . presents with antalgic dragging gait with slow cait and increase trunk flexion. also presents with heavy UE use on FWW. cued pt to correct. pt agreed to sit up on the chair. positioned on the chair. BP checked: 82/ 54. informed nurse. pt continues to not c/o dizziness . BP rechecked: 109/70. call light and table placed within reach. caregiver training set up this afternoon at 130 pm. Gait Assessment Gait Gait Assistance Required: Moderate Assistance Distance (Feet) 15 Able to Maintain Weight Bearing Status Yes During Gait Assistive Devices Assistive Device Gait Belt,Front Wheeled Walker Orthotic/Prosthetic Devices or Brace: No Gait Deviations General Gait Pattern Antalgic,Decreased Stride Length,Decreased Feet Clearance,Step-to Gait Factors Limiting Gait Function Factors Limiting Gait Function Decreased Activity Tolerance, Decreased Strength,Difficulty Following Directions,Limited Range of Motion,Pain,Poor Balance,Poor Safety Awareness PT-Balance Assessment Sitting Balance and Reactions Static Sitting Balance Ability Normal Dynamic Sitting Balance Ability Good Standing Balance and Reactions Static Standing Balance Ability Fair Dynamic Standing Balance Ability Poor Device Used FWW M5 PT-IP Objective Assessments Start: 03/22/23 12:39 Freq: NEEDED Status: Active Protocol: Document 03/22/23 10:36 AB (Rec: 03/22/23 13:02 AB [email or web address]) Orientation Orientation/Cognition Level of Alertness Confusional State Language Function Ability Hard of Hearing Safety Awareness Decreased Safety Awareness Memory Description Short Term Impaired Gross Range of Motion Lower Extremity ROM Assessment Bilaterally Impaired Impairments B ankle in eversion Strength Lower Extremity Strength Assessment Right Impaired Hip 3-/5 Knee 3+/5 Muscle Tone Muscle Tone WNL Yes M6 PT-IP Treatment Start: 03/22/23 12:39 Freq: NEEDED Status: Active Protocol: Document 03/22/23 10:36 AB (Rec: 03/22/23 13:02 AB [email or web address]) Physical Therapy Treatment Exercises Exercises Heel Slides Education Education Provided Precautions,Weight Bearing Status,Post-Op Packet,Safety M7 PT-IP Assessment and Plan Start: 03/22/23 12:39 Freq: NEEDED Status: Active Protocol: Document 03/22/23 10:36 AB (Rec: 03/22/23 13:02 AB [email or web address]) PT Summary Assessment and Plan Potential Rehabilitation Potential Fair Status of Condition at Evaluation Evolving Summary Impairments Pain,ROM,Strength,Balance, Coordination,Sensation,Tone, Cognition,Bed Mobility, Transfers,Gait,Activity Tolerance Assessment Summary pt s/p R YAZMIN anterior approach POD 1. pt requiring mod A with transfers and ambulation using FWW and max cues with all tasks. caregiver training set up for this afternoon and will continue to assess progress. Goals Bed Mobility Goal Standby Assistance Transfer Goal Standby Assistance,Front Wheeled Walker Gait Goal Standby Assistance,Front Wheel Walker Gait Distance 250 Other Goals up/down 3 steps without rails CGA up/down 15 steps B rails SBA Days to Meet Goals 10 Frequency of Treatment Frequency Of Treatment Twice a Day Treatment Plan Physical Therapy Treatment Plan Bed Mobility Training,Transfer Training,Gait Training, Therapeutic Exercise,Balance Retraining,Post Op Education, Discharge Planning,Hot or Cold Pack,Neuromuscular Re-ed, Coordination Retraining,Manual Therapy Precautions Anterior Hip Precautions No Hip Extension,No Hip External Rotation Weight Bearing Status Weight Bearing Status Weight Bear as Tolerated Allowed Weight Bearing Amount (enter % RLE WBAT or #) (%) Recommendations To Nursing Amount of Assist Needed 1 Person Assist Discharge Recommendations PT Discharge Recommendations Home with 07/04 Assist Available,Home Health,SNF Rehab,Home vs SNF Transportation Needs at Discharge Private Vehicle,Wheelchair/ Cabulance
--- NOTE | 2023-03-22 11:27 | PM.DS.1 ---
History of Present Illness History of Present Illness Chief complaint: Right Total Hip Arthroplasty/Anterior Approach Narrative: Patient is resting comfortably in bed this morning with at bedside. He states that pain is well controlled with medication. Denies numbness and tingling to bilateral lower extremities. Denies chest pain, shortness of breath. Would like to go home today if safe and cleared by physical therapy. Discharge Providers Provider Discharge Date: 03/22/23 Primary care physician: Charles Keane MD Consults: 03/21/23 06:00 Consult to Anesthesiology Routine Comment: Consulting Provider: Anesthesiologist Reason for consultation: Regional block for post operative pain control 03/21/23 16:45 Consult to Discharge Planning Routine Comment: Consult to Occupational Therapy Evaluate & Treat Comment: Physician Instructions: Evaluate and treat Consult to Physical Therapy Evaluate & Treat Comment: Physician Instructions: post op YAZMIN protocol Discharge provider: Mia Jackson PA-C Summary Hospital Course Discharge Diagnosis: Status post right anterior total hip arthroplasty Hospital Course: Operative Date/Time/Diagnoses Date of procedure: 03/21/23 Time of procedure: 13:00 Pre-op diagnosis: Severe right hip OA Post-op diagnosis: same Procedure & Clinicians Procedure: Right total hip arthroplasty anterior approach Same procedure as scheduled: Yes Indications: The patient has had progressively worsening right hip pain with radiographic changes consistent with arthritis. Non-operative management has failed and the patient has requested total hip replacement. The risks, benefits and alternatives to surgery were discussed with the patient prior to proceeding. Risks discussed included, but were not limited to, failure to relieve pain, leg length discrepancy, dislocation, stiffness, infection, nerve damage, deep venous thrombosis, pulmonary embolism, stroke, coma, heart attack, permanent paralysis and , as well as the potential need for eventual revision of the prosthetic. Surgeon: Karol Feng Mental Health Orderly: Adrianne Sahu Anesthesia Type: General and Spinal Operative Notes Findings: Severe right hip OA, adequate stability, soft bone, Closure Type: primary Specimen(s): none sent Prosthetic devices, grafts, tissues, transplants, or devices: Feng and Nephew size 58 R3 cup, 36 x 58 neutral poly liner, 36+ 0 cobalt chrome head,0ne 6.5 screw, polar size 8 standard collared stem Estimated Blood Loss (mL): 250 Blood products transfused: none Exam Vital Signs (past 8 hours): - 03/22/23 04:23 03/22/23 09:13 Temperature 96.8 F L 98.9 F Pulse Rate 88 94 H Respiratory Rate 18 18 Blood Pressure 108/66 117/75 Pulse Oximetry 99 98 Oxygen Flow Rate 3 Oxygen Delivery Method Nasal Cannula Oxygen Flow Rate 3 Narrative Exam Narrative: Pleasant 78-year-old male. Awake, alert, and oriented. Intraoperative dressing clean, dry, and intact. Strength and sensation intact to bilateral lower extremities. Mild pitting edema to bilateral lower extremities. Bilateral calves soft, compressible, nontender with no palpable cords or masses. Objective Labs 03/22/23 05:25 Labs: Laboratory Results - last 24 hr 03/22/23 05:25 Hgb 13.9 Hct 41.4 PFSH Medical History Amblyopia BPH w urinary obs/LUTS Chicken pox (~1955) Chronic anticoagulation Chronic atrial fibrillation Chronic pruritic rash in adult Essential hypertension (~1975) Fractures (~1966) Gout (~1980) Hammertoe of right foot History of pulmonary embolism (~2011) Localization-related epilepsy Measles (~1957) Mixed hyperlipidemia ENMA (obstructive sleep apnea) Osteoarthritis of right hip Osteopenia Rash Seizure disorder (~2004) Venous (peripheral) insufficiency Surgical History Anesthesia Brain abscess (~2003) History of Achilles tendon repair (~2007) History of hernia repair (~1975) Hx of colonoscopy Hx of craniotomy (2003) Social History household members: spouse Smoking Status: Former smoker alcohol intake: current Discharge Assessment & Plan Assessment and Plan Assessment: Patient progressing as expected after right anterior total hip arthroplasty, pod 1 Plan of Treatment: Plan to work with physical therapy today, discharge to home with if safe and cleared for discharge. Continue multimodal pain regimen as prescribed. Ice to hip as needed. Follow up with Orthopedics 2 weeks after surgery. Discharge Plan Discharge Plan Patient Disposition: Home Provider Discharge Comment: Discharge if safe and cleared by Physical therapy. Postop medications sent at preoperative visit. Discharge orders & Medications Discharge Orders: Discharge (Order); Ordered 03/22/23 Ordered By: Mia Jackson Prescriptions: New oxycodone 5 mg Tablet 5 mg PO Q3H PRN (Reason: Pain, Moderate (4-6)) Qty: 40 0RF acetaminophen 325 mg Tablet 650 mg PO Q6H Qty: 120 0RF Continued dabigatran etexilate [Pradaxa] 150 mg capsule 150 mg PO BID Qty: 180 3RF levetiracetam 500 mg tablet 500 mg PO BID Qty: 180 3RF docusate sodium [Colace] 100 mg capsule 200 mg PO DAILY (DME) Parking Permit... See Rx Instructions .Route .MEDSUPPLY Qty: 1 0RF Rx Instructions: As directed furosemide 20 mg tablet 40 mg PO DAILY Qty: 180 1RF metoprolol tartrate 25 mg tablet 12.5 mg PO BID Qty: 90 3RF Discontinued tramadol 50 mg tablet 25 mg PO BEDTIME PRN (Reason: pain) Follow up/Referrals: Charles Keane MD [Primary Care Provider] - Diet/Activity/Treatments Diet: Diet as Tolerated Activity: Weightbearing as tolerated. Anterior hip precautions. Cold/Heat Therapy: Ice to hip as needed. Skin/Wound/Dressing Care Dressing: Keep dressing clean, dry, and intact until 2 week follow up with Orthopedics. Visit Report/Discharge Packet Instructions: DI for Hip Replacement Stand Alone Forms: Patient Portal/API, Surgery Discharge Discharge Data Primary Care Provider: Charles Keane V Attending Provider: Karol Feng VTE Deep Vein Thrombosis/Pulmonary Embolism Present on Admission: No
[2023-03-22] MEDS: ACETAMINOPHEN 325 MG TABLET 650 MG PO (12:11)
--- NOTE | 2023-03-22 13:30 | PT.IPTN ---
Current Diagnoses Unilateral primary osteoarthritis, right hip (03/21/23) Surgery Performed Operation Date: 03/21/23 12:00 Actual Procedures p Total Hip Arthroplasty/Anterior Approach(Right) - Karol Feng MD Physical Therapy Treatment Note M2 PT-IP Current Condition Start: 03/22/23 12:39 Freq: NEEDED Status: Active Protocol: Document 03/22/23 10:36 AB (Rec: 03/22/23 13:02 AB [id number]) Physical Therapy Current Condition Current Condition Evaluation Date 03/22/23 Treatment Diagnosis s/p R YAZMIN anterior approach; difficulty in walking Onset Date 03/21/23 M3 PT-IP Subjective Start: 03/22/23 12:39 Freq: NEEDED Status: Active Protocol: Document 03/22/23 13:30 AB (Rec: 03/22/23 17:29 AB [email or web address]) Subjective Physical Therapy Visit Type Type Initial Evaluation Visit Start Time 13:30 Visit Stop Time 14:13 Total Visit Minutes 43 Number of DIRECTOR LAW ENFORCEMENT Visits 0 Therapy Pain Assessment Pain When Pain Assessed During Mobility Pain Present Pain Present Pain Reported Location Right Hip Intensity 4 Scale Used Numeric (0 - 10) Pain Management Techniques Distraction,Modification of Treatment,Re-positioning, Timing of Activity with Medications M4 PT-IP Mobility and Gait Start: 03/22/23 12:39 Freq: NEEDED Status: Active Protocol: Document 03/22/23 13:30 AB (Rec: 03/22/23 17:29 AB [id number]) PT-Bed Mobility Assessment Sit to Supine Sit to Supine Moderate Assistance,1 Person Assistance PT-Transfer Assessment Sit to and From Stand Sit to and from Stand Moderate Assistance,1 Person Assistance,Use of Upper Extremities Equipment Transfer Assistive Device Gait Belt,Front Wheeled Walker Orthotic/Prosthetic Devices or Brace: No Transfers Transfer Destination Bed Transfer Technique Stand Step Pivot Transfer Ability Level of Assist Moderate Assistance,1 Person Assistance,Use of Upper Extremities Comments Mobility Comments pt sitting on chair. spouse in room for caregiver training . BP checked: 80/48. checked again: 83/53. informed nurse regarding low BP. Deferred ambulation and caregiver training due to pt's low BP. will assist pt back to bed. pt completed sit to stand mod A and step transfer to bed mod A using FWW. informed spouse on how to assist pt with sit to supine and spouse was able to assist pt with elevating LE up to bed. positioned pt in bed. BP checked: 92/60. call light and table placed within reach. informed nurse regarding pt's BP. also informed regarding pt's SOB but O2 sat at 98% and also bilateral LE pitting edema. caregiver training set up again for tomorrow at 9am. informed caser in regarding pt's mobility, low BP and caregiver training tomorrow and probable d/c plan SNF vs home with 24/7 and HHPT but with current mobility more on SNF. M5 PT-IP Objective Assessments Start: 03/22/23 12:39 Freq: NEEDED Status: Active Protocol: Document 03/22/23 10:36 AB (Rec: 03/22/23 13:02 AB [id number]) Orientation Orientation/Cognition Level of Alertness Confusional State Language Function Ability Hard of Hearing Safety Awareness Decreased Safety Awareness Memory Description Short Term Impaired Gross Range of Motion Lower Extremity ROM Assessment Bilaterally Impaired Impairments B ankle in eversion Strength Lower Extremity Strength Assessment Right Impaired Hip 3-/5 Knee 3+/5 Muscle Tone Muscle Tone WNL Yes M6 PT-IP Treatment Start: 03/22/23 12:39 Freq: NEEDED Status: Active Protocol: Document 03/22/23 13:30 AB (Rec: 03/22/23 17:29 AB [id number]) Physical Therapy Treatment Education Education Provided Precautions,Safety M7 PT-IP Assessment and Plan Start: 03/22/23 12:39 Freq: NEEDED Status: Active Protocol: Document 03/22/23 13:30 AB (Rec: 03/22/23 17:29 AB [email or web address]) PT Summary Assessment and Plan Potential Rehabilitation Potential Fair Summary Impairments Pain,ROM,Strength,Balance, Coordination,Sensation,Tone, Cognition,Bed Mobility, Transfers,Gait,Activity Tolerance Progress Towards Goals Slow Progress due to Medical Issues,Slow Progress due to Activity Tolerance Assessment Summary Pt continues to have low BP: 80/48 limiting mobility and safety. pt requiring mod A for transfers using FWW. caregiver training set up for tomorrow at 9am. At this time , pt will benefit from SNF rehab. will continue to assess . Goals Bed Mobility Goal Standby Assistance Transfer Goal Standby Assistance,Front Wheeled Walker Gait Goal Standby Assistance,Front Wheel Walker Gait Distance 250 Other Goals up/down 3 steps without rails CGA up/down 15 steps B rails SBA Days to Meet Goals 10 Frequency of Treatment Frequency Of Treatment Twice a Day Treatment Plan Physical Therapy Treatment Plan Bed Mobility Training,Transfer Training,Gait Training, Therapeutic Exercise,Balance Retraining,Post Op Education, Discharge Planning,Hot or Cold Pack,Neuromuscular Re-ed, Coordination Retraining,Manual Therapy Other Recommendations and Next Treatment Caregiver trainin/9 @ 9 am Focus Precautions Anterior Hip Precautions No Hip Extension,No Hip External Rotation Weight Bearing Status Weight Bearing Status Weight Bear as Tolerated Allowed Weight Bearing Amount (enter % RLE WBAT or #) (%) Recommendations To Nursing Amount of Assist Needed 1 Person Assist Discharge Recommendations PT Discharge Recommendations Home with 07/04 Assist Available,Home Health,SNF Rehab,Home vs SNF Transportation Needs at Discharge Private Vehicle,Wheelchair/ Cabulance
--- NOTE | 2023-03-22 16:54 | CM.DANOTE ---
DCP Assessment Note: Patient is a 78yo M here following a planned right hip surgery with Dr. Feng on 03/21/23. PCP: Charles Keane Payer: Link and self pay [employer]SP[employer] SYSTEMS SPECIALIST reviewed EMR. Spouse called [employer] SPECIALIST first thing in morning with questions regarding HH. CYBER TRANSPORT SYSTEMS SPECIALIST entered room and introduced self and role. Patient appeared A/Ox4 and was accompanied by spouse Tia ([phone] or [phone]). Spouse reported wanting home health services with [facility]. [employer]SP[employer] SYSTEM[employer] SPECIALIST reported that is pending how he does with PT/OT. CY[employer]SP[employer] SYSTEMS SPECIALIST answered questions regarding insurance/same day stay status. Spouse reported that he had not yet got up and moved. Spouse reports she is concerned about the 3 stairs to get into their house and flight of stairs to get to bedroom. Patient has a cane/walker/seat risers at home. Prior to surgery, patient has been using a cane since November due to pain in hip. Patient drives at baseline. PT reported to [employer] SPECIALIST that her current recommendation is SNF due to patient's inability to mobilize. PT wants to reassess tomorrow due to late time of day and will provide caregiver training in morning. PT reported patient's BP dropped to 80/48 while attempting to get to chair from bed. PT reported she told this to PA and PA would consult hospitalist. PT is concerned about safety going home. Patient reports he is open to SNF if needed. CY[employer]SP[employer] SYSTEMS SPECIALIST provided list of facilities that accept [place] insurance ([facility], [facility], [facility], and [facility] CY[employer]SP[employer] SYSTEMS SPECIALIST explained that in order to qualify [place] would have to get authorization first. Patient and spouse expressed verbal understanding. Preference is [facility] but will report more on preference in morning. Patient's preference is still home with [facility] but patient and family are concerned about low BP. Plan: PT will reassess in am. If still recommend SNF, CM team will attempt to get [place] auth. CM team will continue to follow closely. DEB Rawls Discharge Planning/Care Management CM Discharge Assessment Start: 03/22/23 16:50 Freq: Status: Active Protocol: Document 03/22/23 16:50 DELL (Rec: 03/22/23 16:54 SL [id number]) Discharge Planning Assessment Assigned Rides Attendant DEB Price DPOA/Assigned Designee Name Tia (spouse) Contact Information [phone] Advance Directives? Yes Advance Directives on File No History Provided By Patient,Significant Other, Medical Record Prior Living Arrangements House Household Members spouse Type of transporation used prior to Drives own vehicle admit Independent with ADL's Yes Is patient alert and oriented? Yes Needs Assistance With Home Chores / Shopping DME Already Rented / Owned Elevated Toilet Seat,FWW / Walker,Cane Patient/Family Preference Intermediate Facility Comment Family prefers home with HH but is open to SNF if determined medically necessary Discharge Plan Intermediate Facility Transportation Arrangement spouse willing and able to drive Additional Comment None at this time. Pending tomorrow's PT recommendation If patient plan is SNF: Has PASSR been No completed? Medicare Choice List Provided Yes SNF/HH Preference [place] Has Agency SNF been contacted No Whiteboard Updated in Patient Room with Yes name and ext. # of Rides Attendant Review Status In Process Next Review Type Continued Stay Review Pre-Anesthesia Assessment Start: 03/19/23 10:49 Freq: Status: Active Protocol: Document 03/19/23 10:49 CAB (Rec: 03/19/23 11:45 CAB [id number]) Pre-Anesthesia Assessment Preferred Name Melo Patient Information Reviewed Via Phone Assessment Assessment Completed With Patient Diagnostic Results BMP/CMP,CBC,EKG Comment Labs/EKG @ Primary Care Provider Charles Keane Comment Clearance form scanned Seen Specialist in Last 12 Months Yes Specialist Seen School Community Relations Coordinator,Orthopedist, Religious Activities Director,Other Comment Neurology visit scanned Primary Language Italian Four Slide Operator Required No Height 185.42 cm Weight 72.575 kg Body Mass Index (BMI) 21.1 Hearing Ability Normal Visual Assist Glasses Dentition Type Teeth, Natural Present Barriers to Learning None Hx Anesthesia Reactions No Hx Family Anesthesia Reaction No Hx Malignant Hyperthermia No Hx Blood Transfusions No Anesthesia Review Requested No Cashier Or Checker Stock Clerk No alcohol intake current alcohol intake frequency 0-2 drinks per day Smoking Status Former smoker how long ago did patient quit smoking Quit 2011 Substance Use Type marijuana Comment Advised not to smoke marijuana 24 hours prior Pain Present Pain Reported Musculoskeletal Symptoms Abnormal Gait,Difficulty Walking,Joint Pain History of Falling (Recent or History of No ) Patient is completely paralyzed or No completely immobile Prosthesis or Orthotic Device Cane Is patient on oxygen? No Does patient have [place]/SOB No Hx Sleep Apnea No Currently Taking a Beta Angus Yes: Metoprolol Hx Chest Pain No Hx SOB No Hx Syncope or Dizziness No Anti-Coagulant Therapy Yes: Pradaxa-advised to stop per PCP Has a Migration Agent No Cardiac Testing No Hx Pacemaker/ICD No Pacemaker Rep Required? No Cardiac Clearance Received Not Applicable Diet Type At Home Regular Dysphagia No Gastrointestinal Symptoms Constipation Genitourinary Symptoms Change in Urinary Stream, Dribbling Chronic UTI No Bladder Pattern Urgency Urinary Catheter Present No Hx Urinary Self Catheterization No Diabetes No HgbA1C 5.3 Date 01/24/23 Hx Drug Resistant Organism No Presence of External or Internal Medical No Devices Have you had any close contact with No someone diagnosed with COVID-19? Received a COVID vaccine? Yes Received all doses? Yes Marital Status Lives With spouse Current Living Arrangements House Number of Floors (Floors) Two Floors Number of Stairs To Enter/Railing? 2 Support System Spouse Does the Patient Have Assistance After Yes Surgery Patient Discharge Plan Description Return Home Comment Pt advised 2 day length of stay per surgeon Feels Safe in Current Environment Yes Been Physically Hurt or Threatened By a No Person in Current Environment Do you have thoughts of harming yourself None or others? Are you currently considering suicide? No Do you have a plan to hurt yourself or No Plan others? Do You Have Any Spiritual Beliefs That No May Affect Your HC Choices? Do You Have Any Cultural Practices That No May Affect Your HC Choices? Who Can We Speak to About Patient's Care Family, friends Identifying Code for Release of Patient Declines to issue Information Health Care Proxy/Next of Kin Tia () Health Care Proxy or [phone] Emergency Contact Name Tia () Emergency Contact or [phone] Advance Directives? Yes Advance Directives on File No Requested Patient Bring Advanced Yes Directives DOS Power of Fabrication Mig Welder Yes Power of Fabrication Mig Welder Name Tia () Power of Fabrication Mig Welder or [phone] PAC Instructions Durable medical equipment, Medications to take/avoid, Nasal antibiotic,No ETOH/ petroleum product on skin DOS, NPO,Post-op transportation,Pre -surgical wash,Sensory aids, Sturdy shoes/comfortable clothes,Do not bring valuables and remove jewelry
[2023-03-22 20:25] VITALS: BP 116/77; PULSE 98; RESP 18; TEMP 36.6; O2SAT 96
[2023-03-22] MEDS: TRAMADOL 50 MG TABLET 25 MG PO (20:54)
[2023-03-23 08:32] VITALS: BP 119/70; PULSE 100; RESP 16; TEMP 36.6; O2SAT 90
[2023-03-23] MEDS: METOPROLOL IR 25 MG TABLET 12.5 MG PO ×2 (08:40→21:44)
[2023-03-23] MEDS: DOCUSATE 100 MG CAPSULE PO ×2 (08:42→21:42)
[2023-03-23] MEDS: DABIGATRAN 75 MG CAPSULE 150 MG PO ×2 (08:42→21:45)
[2023-03-23] MEDS: FUROSEMIDE 20 MG TABLET 40 MG PO (08:42)
[2023-03-23] MEDS: levETIRAcetam 250 MG TABLET 500 MG PO ×2 (08:42→21:42)
--- NOTE | 2023-03-23 10:18 | PT.IPTN ---
Current Diagnoses Unilateral primary osteoarthritis, right hip (03/21/23) Surgery Performed Operation Date: 03/21/23 12:00 Actual Procedures p Total Hip Arthroplasty/Anterior Approach(Right) - Karol Feng MD Physical Therapy Treatment Note M2 PT-IP Current Condition Start: 03/22/23 12:39 Freq: NEEDED Status: Active Protocol: Document 03/22/23 10:36 AB (Rec: 03/22/23 13:02 AB [id number]) Physical Therapy Current Condition Current Condition Evaluation Date 03/22/23 Treatment Diagnosis s/p R YAZMIN anterior approach; difficulty in walking Onset Date 03/21/23 M3 PT-IP Subjective Start: 03/22/23 12:39 Freq: NEEDED Status: Active Protocol: Document 03/23/23 09:12 KS (Rec: 03/23/23 12:16 KS [id number]) Subjective Physical Therapy Visit Type Type Treatment Note Visit Start Time 09:12 Visit Stop Time 10:18 Total Visit Minutes 66 Notes present for caregiver training Number of ASSISTANT MANAGER AIRSIDE OPERATIONS Visits 1 Physical Therapy Visit Comments Patient Comments agreeable to do PT M4 PT-IP Mobility and Gait Start: 03/22/23 12:39 Freq: NEEDED Status: Active Protocol: Document 03/23/23 09:12 KS (Rec: 03/23/23 12:16 KS [id number]) PT-Bed Mobility Assessment Supine to Sit Supine to Sit Moderate Assistance,1 Person Assistance Sit to Supine Sit to Supine Moderate Assistance,1 Person Assistance Scooting Scooting to Edge of Bed Maximum Assistance PT-Transfer Assessment Sit to and From Stand Sit to and from Stand Moderate Assistance,1 Person Assistance,Use of Upper Extremities Equipment Transfer Assistive Device Gait Belt,Front Wheeled Walker Orthotic/Prosthetic Devices or Brace: No Transfers Transfer Destination Bed,Chair Transfer Technique ambulated Transfer Ability Level of Assist Moderate Assistance,1 Person Assistance,Use of Upper Extremities Comments Mobility Comments BP stable throughout treatment today. Pt in bed upon arrival , spouse in room. Mod A for sup<>sit and Max A for scooting EOB. Mod A for sit<> stand w/ FWW. Demonstrated gait belt application and asssitance to pts for sit <>stand. Pt performed minimal marching in place, difficult to elevate LLE while standing on R. He then ambulated ~20 ft w/ FWW Min A w/ cues to increase ground clearance. Pt took seated rest break before completing 1x platform step w/ cane and CHILD DEVELOPMENT INSTRUCTOR and Max A. Pt unable to complete further stair training due to fatigue reporting that it took 110% to complete step. Pt took seated rest break on bench before ambulating additional 10 ft back to bed. Mod A for sit<>sup. Left in bed w/ alarm on and all needs in reach. Gait Assessment Gait Gait Assistance Required: Minimum Assistance,1 Person Assist Distance (Feet) 20 Able to Maintain Weight Bearing Status Yes During Gait Assistive Devices Assistive Device Gait Belt,Front Wheeled Walker Orthotic/Prosthetic Devices or Brace: No Gait Deviations General Gait Pattern Antalgic,Decreased Stride Length,Decreased Feet Clearance,Step-to Gait Factors Limiting Gait Function Factors Limiting Gait Function Decreased Activity Tolerance, Decreased Strength,Difficulty Following Directions,Limited Range of Motion,Pain,Poor Balance,Poor Safety Awareness Comments Gait Comments Slow and cautious gait w/ minimal ground clearance. Stair Climbing Assessment Evaluation Level of Assist On Stairs Maximal Assistance,1 Person Assistance,2 Person Assistance Devices Stair Climbing Assistive Devices Straight Cane Technique/Endurance Stair Climbing Direction Ascend and Descend Stair Climbing Technique Step to Step Number of Steps Climbed 1 Stair Climbing Set # Repetitions (reps) 1 Comments Stair Climbing Comments Pt ascended/descended 1x platform step w/ on L side providing support through gaitbelt and this therapist on the R side providing heavy CHILD DEVELOPMENT INSTRUCTOR and support through gait belt. Pt relied heavily on SPC and CHILD DEVELOPMENT INSTRUCTOR to push through BUE in order to step up w/ LLE and required the same Max A for stepping down w/ RLE first. Pt reported high level of fatigue following 1 step. Unable to complete additional steps, but pt has 3 KENIA w/o rails and cannot fit FWW on step. Pt and do not feel safe to complete stairs entering home. PT-Balance Assessment Sitting Balance and Reactions Static Sitting Balance Ability Normal Dynamic Sitting Balance Ability Good Standing Balance and Reactions Static Standing Balance Ability Fair Dynamic Standing Balance Ability Fair Device Used FWW M5 PT-IP Objective Assessments Start: 03/22/23 12:39 Freq: NEEDED Status: Active Protocol: Document 03/22/23 10:36 AB (Rec: 03/22/23 13:02 AB [id number]) Orientation Orientation/Cognition Level of Alertness Confusional State Language Function Ability Hard of Hearing Safety Awareness Decreased Safety Awareness Memory Description Short Term Impaired Gross Range of Motion Lower Extremity ROM Assessment Bilaterally Impaired Impairments B ankle in eversion Strength Lower Extremity Strength Assessment Right Impaired Hip 3-/5 Knee 3+/5 Muscle Tone Muscle Tone WNL Yes M6 PT-IP Treatment Start: 03/22/23 12:39 Freq: NEEDED Status: Active Protocol: Document 03/23/23 09:12 KS (Rec: 03/23/23 12:16 KS [id number]) Physical Therapy Treatment Education Education Provided Precautions,Safety Other Treatments Other Treatment Performed Initiated caregiver and stair training. M7 PT-IP Assessment and Plan Start: 03/22/23 12:39 Freq: NEEDED Status: Active Protocol: Document 03/23/23 09:12 KS (Rec: 03/23/23 12:16 KS [id number]) PT Summary Assessment and Plan Potential Rehabilitation Potential Fair Summary Impairments Pain,ROM,Strength,Balance, Coordination,Sensation,Tone, Cognition,Bed Mobility, Transfers,Gait,Activity Tolerance Progress Towards Goals Slow Progress due to Medical Issues,Slow Progress due to Activity Tolerance Assessment Summary Pt had stable BP today, but remains limited by weakness, poor balance, and low tolerance for activity. He required Mod to Max A for bed mobility, Mod A for transfers, Min A for ambulation, and Max A x1-2 for stair. He was unsuccessful in completing caregiver and stair training and therefore PT is recommending SNF to improve strength and functional mobility. Pt and do not feel safe or able to go home at this time and prefer SNF. Goals Bed Mobility Goal Standby Assistance Transfer Goal Standby Assistance,Front Wheeled Walker Gait Goal Standby Assistance,Front Wheel Walker Gait Distance 250 Other Goals up/down 3 steps without rails CGA up/down 15 steps B rails SBA Days to Meet Goals 10 Frequency of Treatment Frequency Of Treatment Twice a Day Treatment Plan Physical Therapy Treatment Plan Bed Mobility Training,Transfer Training,Gait Training, Therapeutic Exercise,Balance Retraining,Post Op Education, Discharge Planning,Hot or Cold Pack,Neuromuscular Re-ed, Coordination Retraining,Manual Therapy Precautions Anterior Hip Precautions No Hip Extension,No Hip External Rotation Weight Bearing Status Weight Bearing Status Weight Bear as Tolerated Allowed Weight Bearing Amount (enter % RLE WBAT or #) (%) Recommendations To Nursing Amount of Assist Needed 1 Person Assist Discharge Recommendations PT Discharge Recommendations SNF Rehab Transportation Needs at Discharge Private Vehicle,Wheelchair/ Cabulance
[2023-03-23] MEDS: ACETAMINOPHEN 325 MG TABLET 650 MG PO ×3 (10:39→21:46)
--- NOTE | 2023-03-23 12:24 | P.PN_ITS ---
Subjective Subjective Date Patient Seen: 03/23/23 Time Patient Seen: 12:24 Interval history: He is working on mobilizing with physical therapy. Has a history of atrial fibrillation and bilateral lower extremity edema which has been managed by Dr. Keane. He notes that his pain is adequately controlled with Tylenol. He has no pain at rest but does have some pain when he mobilizes. He is not using any narcotics. He notes that the swelling in his feet as little less than it was previously. He is back on his regular Pradaxa. he had difficulty mobilizing with physical therapy. He did spend few hours in the chair yesterday. Exam Vital Signs (past 8 hours): - 03/23/23 08:32 Temperature 97.8 F Pulse Rate 100 H Respiratory Rate 16 Blood Pressure 119/70 Pulse Oximetry 90 L Oxygen Flow Rate 0 Oxygen Delivery Method Room Air Oxygen Flow Rate 0 Narrative Exam Narrative: Resting comfortably in bed, dressings intact, he has mild pain with range of motion in his right hip, he can fire his hip flexor but does have some weakness with right leg straight leg raise, his bilateral lower extremity edema which is slightly decreased today in comparison to yesterday. He has anticipated swelling in his right thigh, his calves are nontender bilaterally Objective Labs 03/22/23 05:25 [facility] Medical History Amblyopia BPH w urinary obs/LUTS Chicken pox (~1955) Chronic anticoagulation Chronic atrial fibrillation Chronic pruritic rash in adult Essential hypertension (~1975) Fractures (~1966) Gout (~1980) Hammertoe of right foot History of pulmonary embolism (~2011) Localization-related epilepsy Measles (~1957) Mixed hyperlipidemia ENMA (obstructive sleep apnea) Osteoarthritis of right hip Osteopenia Rash Seizure disorder (~2004) Venous (peripheral) insufficiency Surgical History Anesthesia Brain abscess (~2003) History of Achilles tendon repair (~2007) History of hernia repair (~1975) Hx of colonoscopy Hx of craniotomy (2003) Social History household members: spouse Smoking Status: Former smoker alcohol intake: current Assessment & Plan Post-op Postoperative Procedures: Procedures Operation Date: 03/21/23 12:00 Actual Procedure Side Surgeon p Total Hip Arthroplasty/Anterior Approach Right Karol Feng MD Postoperative day: 2 Postoperative status: other ( he is stable postoperatively. He is doing reasonably well from his hip standpoint but he has multiple other medical issues.) Postoperative plan: routine post-op care Postoperative plan narrative: He is having some difficulty mobilizing due to multiple medical problems. He has a previous history of a brain abscess with some residual weakness. He also has a history of atrial fibrillation with bilateral lower extremity edema and shortness of breath. I anticipate he will require discharge to rehab to work on further rehabilitation. He is participating well with physical therapy but was unable to do steps and requires assistance for mobilizing. We will work on finding placement for him at rehab likely tomorrow. Time Spent With Patient Time with patient: 15-24 minutes Quality VTE Deep Vein Thrombosis/Pulmonary Embolism Present on Admission: No
--- NOTE | 2023-03-23 14:10 | PT.IPTN ---
Current Diagnoses Unilateral primary osteoarthritis, right hip (03/21/23) Surgery Performed Operation Date: 03/21/23 12:00 Actual Procedures p Total Hip Arthroplasty/Anterior Approach(Right) - Karol Feng MD Physical Therapy Treatment Note M2 PT-IP Current Condition Start: 03/22/23 12:39 Freq: NEEDED Status: Active Protocol: Document 03/22/23 10:36 AB (Rec: 03/22/23 13:02 AB [id number]) Physical Therapy Current Condition Current Condition Evaluation Date 03/22/23 Treatment Diagnosis s/p R YAZMIN anterior approach; difficulty in walking Onset Date 03/21/23 M3 PT-IP Subjective Start: 03/22/23 12:39 Freq: NEEDED Status: Active Protocol: Document 03/23/23 13:31 KS (Rec: 03/23/23 14:27 KS [id number]) Subjective Physical Therapy Visit Type Type Treatment Note Visit Start Time 13:31 Visit Stop Time 14:10 Total Visit Minutes 39 Notes present Number of RELIEF SALESPERSON Visits 2 Physical Therapy Visit Comments Patient Comments agreeable to do PT M4 PT-IP Mobility and Gait Start: 03/22/23 12:39 Freq: NEEDED Status: Active Protocol: Document 03/23/23 13:31 KS (Rec: 03/23/23 14:27 KS [id number]) PT-Bed Mobility Assessment Scooting Scooting to Edge of Bed Contact Guard Assistance PT-Transfer Assessment Sit to and From Stand Sit to and from Stand Minimal Assistance,1 Person Assistance,Use of Upper Extremities Equipment Transfer Assistive Device Gait Belt,Front Wheeled Walker Orthotic/Prosthetic Devices or Brace: No Transfers Transfer Destination Chair Transfer Technique ambulated Transfer Ability Level of Assist Minimal Assistance,1 Person Assistance,Use of Upper Extremities Comments Mobility Comments Pt in chair upon arrival, applied gait belt. Pt sit<> Stand w/ FWW Min A. He then ambulated ~50 ft w/ FWW CGA. Pt w/ slow cautious gait and minimal foot clearance however still improved from this AM. Pts gait improved w/ distance. provided pt w/ appropriate cues throguhout. Poor control when sitting in chair. Left in chair w/ in room and all needs in reach . Gait Assessment Gait Gait Assistance Required: Minimum Assistance,1 Person Assist Distance (Feet) 50 Able to Maintain Weight Bearing Status Yes During Gait Assistive Devices Assistive Device Gait Belt,Front Wheeled Walker Orthotic/Prosthetic Devices or Brace: No Gait Deviations General Gait Pattern Antalgic,Decreased Stride Length,Decreased Feet Clearance,Step-to Gait Factors Limiting Gait Function Factors Limiting Gait Function Decreased Activity Tolerance, Decreased Strength,Difficulty Following Directions,Limited Range of Motion,Pain,Poor Balance,Poor Safety Awareness Comments Gait Comments Pt is trusting new hip more and becoming less frightened of weight bearing. Gait improved from this AM and w/ distance. PT-Balance Assessment Sitting Balance and Reactions Static Sitting Balance Ability Normal Dynamic Sitting Balance Ability Good Standing Balance and Reactions Static Standing Balance Ability Fair Dynamic Standing Balance Ability Fair Device Used FWW M5 PT-IP Objective Assessments Start: 03/22/23 12:39 Freq: NEEDED Status: Active Protocol: Document 03/22/23 10:36 AB (Rec: 03/22/23 13:02 AB [id number]) Orientation Orientation/Cognition Level of Alertness Confusional State Language Function Ability Hard of Hearing Safety Awareness Decreased Safety Awareness Memory Description Short Term Impaired Gross Range of Motion Lower Extremity ROM Assessment Bilaterally Impaired Impairments B ankle in eversion Strength Lower Extremity Strength Assessment Right Impaired Hip 3-/5 Knee 3+/5 Muscle Tone Muscle Tone WNL Yes M6 PT-IP Treatment Start: 03/22/23 12:39 Freq: NEEDED Status: Active Protocol: Document 03/23/23 13:31 KS (Rec: 03/23/23 14:27 IA [id number]) Physical Therapy Treatment Education Education Provided Precautions,Safety Other Treatments Other Treatment Performed Cont caregiver training, assisted w/gait belt and sit<> stand. M7 PT-IP Assessment and Plan Start: 03/22/23 12:39 Freq: NEEDED Status: Active Protocol: Document 03/23/23 13:31 KS (Rec: 03/23/23 14:27 IA [id number]) PT Summary Assessment and Plan Potential Rehabilitation Potential Good Summary Impairments Pain,ROM,Strength,Balance, Coordination,Sensation,Tone, Cognition,Bed Mobility, Transfers,Gait,Activity Tolerance Progress Towards Goals Slow Progress due to Medical Issues,Slow Progress due to Activity Tolerance Assessment Summary Pt slowly improving w/ mobility and ambulation. Remains limited by weakness and low activity tolerance. was able to provide assistance and cues . Pt requires Min A for transfers and CGA for 50 ft amb this PM using FWW. At this time, pt is unsafe to go home and will require SNF due to weakness, unsuccessful completion of stair training and caregiver training. Will continue to progress bed mobility, transfers, ambulation, and stairs as appropriate. Goals Bed Mobility Goal Standby Assistance Transfer Goal Standby Assistance,Front Wheeled Walker Gait Goal Standby Assistance,Front Wheel Walker Gait Distance 250 Other Goals up/down 3 steps without rails CGA up/down 15 steps B rails SBA Days to Meet Goals 10 Frequency of Treatment Frequency Of Treatment Twice a Day Treatment Plan Physical Therapy Treatment Plan Bed Mobility Training,Transfer Training,Gait Training, Therapeutic Exercise,Balance Retraining,Post Op Education, Discharge Planning,Hot or Cold Pack,Neuromuscular Re-ed, Coordination Retraining,Manual Therapy Precautions Anterior Hip Precautions No Hip Extension,No Hip External Rotation Weight Bearing Status Weight Bearing Status Weight Bear as Tolerated Allowed Weight Bearing Amount (enter % RLE WBAT or #) (%) Recommendations To Nursing Amount of Assist Needed 1 Person Assist Discharge Recommendations PT Discharge Recommendations SNF Rehab Transportation Needs at Discharge Private Vehicle,Wheelchair/ Cabulance
[2023-03-23] MEDS: OXYCODONE IR 10 MG TABLET PO (17:43)
[2023-03-23 20:12] VITALS: BP 116/56; PULSE 51; RESP 16; TEMP 36.9; O2SAT 94
[2023-03-23 22:30] VITALS: BP 118/71; PULSE 53; RESP 14; TEMP 36.7; O2SAT 93
[2023-03-23 23:40] VITALS: BP 121/77; PULSE 56; RESP 18; TEMP 36.4; O2SAT 93
[2023-03-24 05:45] VITALS: BP 101/74; PULSE 67; RESP 18; TEMP 36.6; O2SAT 93
[2023-03-24 08:00] VITALS: BP 134/80; PULSE 102; RESP 18; TEMP 36.2; O2SAT 91
[2023-03-24] MEDS: DABIGATRAN 75 MG CAPSULE 150 MG PO ×2 (08:47→21:27)
[2023-03-24] MEDS: levETIRAcetam 250 MG TABLET 500 MG PO ×2 (08:47→21:26)
[2023-03-24] MEDS: METOPROLOL IR 25 MG TABLET 12.5 MG PO ×2 (08:47→21:27)
[2023-03-24] MEDS: DOCUSATE 100 MG CAPSULE PO (08:47)
[2023-03-24] MEDS: FUROSEMIDE 20 MG TABLET 40 MG PO (08:48)
--- NOTE | 2023-03-24 09:04 | CM.DPC ---
213: Late Entry: DCP Continued Note for 03/23/23 INCLUSION TEACHER reviewed EMR. Per PT, patient is not safe to d/c home. Patient is unable to mobilize safely. PT is recommending SNF rehab. INCLUSION TEACHER spoke with Dr. Feng. She is in agreement that SNF rehab may be a good idea for a safe d/c plan due to struggles to mobilize and previous medical history. Per family, their preference is [facility], then [facility], and then [facility]. Family verbalized that they may not obtain a [facility] authorization and may not qualify for skilled rehab. Family is still open to [facility] if not able to d/c to SNF. INCLUSION TEACHER sent H&P, recent progress note, recent PT, policy number, and face sheet to [facility]. INCLUSION TEACHER spoke with case maker Dania. She said they would review and let this team know. Per intake person, Stan, at [facility] they have a few beds available and would be happy to review once we have the authorization. INCLUSION TEACHER LVM at [facility] to inquire about their bed availability. Per Evelyn at [facility], they have some availability and will review once there is a [facility] authorization. Plan: pending [facility] authorization, patient will d/c to SNF. Preferences [facility], [facility], and [facility]. If not, patient will go home with [facility] . Plan pending authorization and patient?s current progress towards mobilization. DEB Rawls
--- NOTE | 2023-03-24 09:23 | OT.IP.EVAL ---
Current Diagnoses Unilateral primary osteoarthritis, right hip (03/23/23) Surgery Performed Operation Date: 03/21/23 12:00 Actual Procedures p Total Hip Arthroplasty/Anterior Approach(Right) - Karol Feng MD Past Medical History (Last Reviewed 03/22/23 @ 11:30 by Mia Jackson PA-C) Amblyopia BPH w urinary obs/LUTS Chicken pox (~1955) Chronic anticoagulation Chronic atrial fibrillation Chronic pruritic rash in adult Essential hypertension (~1975) Fractures (~1966) Gout (~1980) Hammertoe of right foot History of pulmonary embolism (~2011) Localization-related epilepsy Measles (~1957) Mixed hyperlipidemia ENMA (obstructive sleep apnea) Osteoarthritis of right hip Osteopenia Rash Seizure disorder (~2004) Venous (peripheral) insufficiency Surgical History (Last Reviewed 03/22/23 @ 11:30 by Mia Jackson PA-C) Anesthesia Brain abscess (~2003) History of Achilles tendon repair (~2007) History of hernia repair (~1975) Hx of colonoscopy Hx of craniotomy (2003) Occupational Therapy Inpatient Evaluation/Re-Eval M1 PT/OT-IP Prior Functional Status Start: 03/22/23 12:39 Freq: NEEDED Status: Active Protocol: Document 03/24/23 10:15 CGR (Rec: 03/24/23 10:34 CGR [id number]) Medical Review Prior Functional Status Medical History Reviewed Yes Communication Pt is an effective verbal communicator. Mobility and Gait pt stated that he is modified independent with all mobilities and ambulation without AD but started using his hurrycane last oct 2022 due to hip pain Activities of Daily Living and IADL's Pt states he is typically IND in all ADLs Social History Household Members spouse Living Arrangements House Number of Floors (Floors) Two Floors Number of Stairs To Enter/Railing? 3 steps without rails to enter 7 steps B rails + landing +7 steps B rails to get to main living area of the home. Home Environment Standard Height Toilet,Walk in Shower Home Equipment Front Wheel Walker,Raised Toilet Seat Without Armrests, Shower Seat with Backrest,Hand Held Shower,Grab Bars In Shower Employment Status Retired Additional Social History Comment pt has a toilet safety frame pt has a hurrycane and a day bed that is electric M2 OT-IP Current Condition Start: 03/24/23 10:14 Freq: Status: Active Protocol: Document 03/24/23 10:15 CGR (Rec: 03/24/23 10:34 CGR [id number]) Occupational Therapy Current Condition Current Condition Evaluation Date 03/24/23 Treatment Diagnosis R YAZMIN anterior Diagnosis Onset Date 03/21/23 Post Operative Precautions Anterior Hip Precautions No Hip Extension,No Hip External Rotation Weight Bearing Status Weight Bearing Status Weight Bear as Tolerated M3 OT- IP Subjective and Pain Start: 03/24/23 10:14 Freq: Status: Active Protocol: Document 03/24/23 10:15 CGR (Rec: 03/24/23 10:34 CGR [id number]) OT- Subjective Occupational Therapy Visit Type Type Initial Evaluation Visit Start Time 08:21 Visit Stop Time 09:23 Total Visit Minutes 62 OT Pain Assessment Pain When Pain Assessed During Mobility Pain Present Pain Present Pain Reported Location Right Hip Intensity 4 Scale Used Numeric (0 - 10) Management Techniques Distraction,Modification of Treatment,Re-positioning, Timing of Activity with Medications M4 OT- IP ADL's Start: 03/24/23 10:14 Freq: Status: Active Protocol: Document 03/24/23 10:15 CGR (Rec: 03/24/23 10:34 CGR [id number]) OT [id number] General Evaluation Self-Feeding Ability Independent Comments OT Self-Feeding Comments sitting up in bed OT ADL-Grooming Comments OT Grooming Comments not performed OT ADL-Oral Care Comments Oral Care Comments not performed OT ADL-Dressing General Eval Lower Body Dressing Ability Total Assistance Areas Needing Assistance Socks OT ADL-Toileting General Evaluation Toileting Ability Moderate Assistance Areas Needing Assistance Perform Perineal Hygiene Comments OT Toileting Comments Pt needed assist with back pericare. Pt had large BM seated on toilet. OT ADL-Bathing Comments OT Bathing Comments not performed M5 OT- IP IADL's Start: 03/24/23 10:14 Freq: Status: Active Protocol: Document 03/24/23 10:15 CGR (Rec: 03/24/23 10:34 CGR [id number]) OT-Instrumental Activities of Daily Living Deficits IADL Deficits Identified No Deficits Home Safety Awareness Awareness of Need for Assistance at Home Good Awareness Ability to Problem Solve Emergency Able to Problem Solve Situations Medication Management Medication Management No Deficits Identified Money Management Money Management No Deficits Identified Meal Preparation Meal Preparation No Deficits Identified Breeding Technician Breeding Technician No Deficits Identified Driving Driving Comments 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 M6 OT- IP Functional Cognition Start: 03/24/23 10:14 Freq: Status: Active Protocol: Document 03/24/23 10:15 CGR (Rec: 03/24/23 10:34 R [id number]) Cognitive Factors Limiting Selfcare Function Cognitive Ability Level of Alertness Alert Patient Orientation Name,Age,Birthday,Month,Date, Year,Day of Week,Place, Situation Attention Span Ability Capable of Focused Attention, Capable of Sustained Attention Ability to Follow Commands Able to Follow Multi-Step Commands OT- Vision and Hearing OT- Hearing Assessment OT- Hearing Assessment WFL OT- Vision Assessment Visual Acuity Glasses All The Time Visual Attentiveness WFL Occular Pursuits WFL Visual Convergence WFL Vision Assessment Comments Pt has strabismus to the L eye from childhood. M7 OT- IP Mobility and Balance Start: 03/24/23 10:14 Freq: Status: Active Protocol: Document 03/24/23 10:15 CGR (Rec: 03/24/23 10:34 R [id number]) OT- Bed Mobility Assessment Supine to Sit Supine to Sit Assist Minimal Assistance,Head of Bed Elevated Scooting Scooting to Edge of Bed Minimal Assistance OT-Transfer Assessment Sit to and From Stand Sit to and from Stand Minimal Assistance,Moderate Assistance,1 Person Assistance Transfers Transfer Ability Minimal Assistance Technique Transfer Destination Bed,Toilet Transfer Technique Stand Step Pivot Devices Transfer Assistive Devices Gait Belt,Front Wheeled Walker Comments Mobility Comments Pt stood with min a from EOB and mod a for sit to stand from toilet. Pt with limited ambulated to the toilet and back to the chair. OT- Balance Assessment Sitting Balance and Reactions Static Sitting Balance Ability Good Dynamic Sitting Balance Ability Good M8 OT- IP Objective Assessments Start: 03/24/23 10:14 Freq: Status: Active Protocol: Document 03/24/23 10:15 CGR (Rec: 03/24/23 10:34 R [id number]) OT Gross Range of Motion Upper Extremity Range of Motion Assessment Within Functional Limits OT Strength Upper Extremity Strength Assessment Within Functional Limits Comments Strength Comments 4/5 OT- Coordination Assessment Upper Extremity Finger to Nose Test Within Functional Limits Finger Tapping Test Within Functional Limits OT-Muscle Tone Assessment Muscle Tone WNL Yes OT Sensation Assessment Edema Edema Absent M9 OT- IP Assessment and Plan Start: 03/24/23 10:14 Freq: Status: Active Protocol: Document 03/24/23 10:15 CGR (Rec: 03/24/23 10:34 CGR [id number]) OT Summary Assessment and Plan Potential Rehabilitation Potential Good Analytic Complexity at Evaluation Moderate Summary OT Impairments Pain,Balance,Coordination, Functional Cognition, Functional Mobility,Grooming, Dressing,Toileting,Bathing, Toilet Transfers,Shower Transfers,Activity Tolerance Progress Towards Goals Progressing Toward Goals Assessment Summary Pt presents as a moderate complexity evaluation s/p R YAZMIN. Pt needs min to mod a for sit to stand and min a for mobility around the room. Pt would benefit from SNF given his lower endurance and limited mobility at this time. Pt will need help with bathing, dressing, and simple ADLs given his current mobility. Recommend d/c to SNF . Goals Grooming Goal Independent Dressing Goal Independent Toileting Goal Independent Bathing Goal Independent Toilet Transfer Goal Independent Shower Transfer Goal Independent Days to Meet Goals 10 Frequency of Treatment Frequency Of Treatment Once a Day Treatment Plan OT Treatment Plan ADL Training,Functional Mobility,Patient/Family Education,Discharge Planning Other Treatment Recommendations and Next shower Treatment Focus Discharge Recommendations OT Discharge Recommendations SNF Rehab Transportation Needs at Discharge Private Vehicle
--- NOTE | 2023-03-24 09:25 | PT.IPTN ---
Current Diagnoses Unilateral primary osteoarthritis, right hip (03/23/23) Surgery Performed Operation Date: 03/21/23 12:00 Actual Procedures p Total Hip Arthroplasty/Anterior Approach(Right) - Karol Feng MD Physical Therapy Treatment Note M2 PT-IP Current Condition Start: 03/22/23 12:39 Freq: NEEDED Status: Active Protocol: Document 03/22/23 10:36 AB (Rec: 03/22/23 13:02 AB [id number]) Physical Therapy Current Condition Current Condition Evaluation Date 03/22/23 Treatment Diagnosis s/p R YAZMIN anterior approach; difficulty in walking Onset Date 03/21/23 M3 PT-IP Subjective Start: 03/22/23 12:39 Freq: NEEDED Status: Active Protocol: Document 03/24/23 10:20 TS (Rec: 03/24/23 11:03 TS [id number]) Subjective Physical Therapy Visit Type Type Treatment Note Visit Start Time 09:25 Visit Stop Time 10:15 Total Visit Minutes 50 Notes present Number of ORGANIC PREPARATION TECHNICIAN Visits 3 Physical Therapy Visit Comments Patient Comments Pt found resting in chair, reports being somewhat fatigued from working with OT, agreeable to do stairs. Therapy Pain Assessment Pain When Pain Assessed During Mobility Pain Present Pain Present Pain Reported M4 PT-IP Mobility and Gait Start: 03/22/23 12:39 Freq: NEEDED Status: Active Protocol: Document 03/24/23 10:20 TS (Rec: 03/24/23 11:03 TS [id number]) PT-Transfer Assessment Sit to and From Stand Sit to and from Stand Minimal Assistance,1 Person Assistance,Use of Upper Extremities Equipment Transfer Assistive Device Gait Belt,Front Wheeled Walker Orthotic/Prosthetic Devices or Brace: No Comments Mobility Comments Sit to stand from chair Florentino with FWW and BUE support from arms of chair, pt is slow to stand for easing of pain. He ambulated in room CGA ~20' with FWW with slow step to gait. He performed stairs x4, x1 with therapist AdriánA. Therapist was positioned on R side with handheld assist and LUE with cane, pt required max cueing for step sequencing. He performed stairs x3 with spouse assisting MaxA on R side with handheld assist and cane with LUE. Pt is slightly unsteady with stairs and requires extra time to complete but has no buckling or LOB. Pt was left back in chair with call light nearby, spouse in room. Gait Assessment Gait Gait Assistance Required: Contact Guard Assist,1 Person Assist Distance (Feet) 20 Able to Maintain Weight Bearing Status Yes During Gait Assistive Devices Assistive Device Gait Belt,Front Wheeled Walker Orthotic/Prosthetic Devices or Brace: No Gait Deviations General Gait Pattern Antalgic,Decreased Stride Length,Decreased Feet Clearance,Step-to Gait Factors Limiting Gait Function Factors Limiting Gait Function Decreased Activity Tolerance, Decreased Strength,Difficulty Following Directions,Limited Range of Motion,Pain,Poor Balance,Poor Safety Awareness Comments Gait Comments Pt was CGA for ambulation of 20' in room with slow step to gait. Had no buckling or LOB. Stair Climbing Assessment Evaluation Level of Assist On Stairs Maximal Assistance,1 Person Assistance Devices Stair Climbing Assistive Devices Straight Cane Technique/Endurance Stair Climbing Direction Ascend and Descend Stair Climbing Technique Step to Step Number of Steps Climbed 4 Stair Climbing Set # Repetitions (reps) 1 Comments Stair Climbing Comments See mobility comments. PT-Balance Assessment Sitting Balance and Reactions Static Sitting Balance Ability Good Dynamic Sitting Balance Ability Good Standing Balance and Reactions Static Standing Balance Ability Good Dynamic Standing Balance Ability Fair Device Used FWW M5 PT-IP Objective Assessments Start: 03/22/23 12:39 Freq: NEEDED Status: Active Protocol: Document 03/22/23 10:36 AB (Rec: 03/22/23 13:02 AB [id number]) Orientation Orientation/Cognition Level of Alertness Confusional State Language Function Ability Hard of Hearing Safety Awareness Decreased Safety Awareness Memory Description Short Term Impaired Gross Range of Motion Lower Extremity ROM Assessment Bilaterally Impaired Impairments B ankle in eversion Strength Lower Extremity Strength Assessment Right Impaired Hip 3-/5 Knee 3+/5 Muscle Tone Muscle Tone WNL Yes M6 PT-IP Treatment Start: 03/22/23 12:39 Freq: NEEDED Status: Active Protocol: Document 03/24/23 10:20 TS (Rec: 03/24/23 11:03 TS [id number]) Physical Therapy Treatment Education Education Provided Precautions,Safety Other Treatments Other Treatment Performed Caregiver training for stairs. M7 PT-IP Assessment and Plan Start: 03/22/23 12:39 Freq: NEEDED Status: Active Protocol: Document 03/24/23 10:20 TS (Rec: 03/24/23 11:03 TS [id number]) PT Summary Assessment and Plan Potential Rehabilitation Potential Good Summary Impairments Pain,ROM,Strength,Balance, Coordination,Sensation,Tone, Cognition,Bed Mobility, Transfers,Gait,Activity Tolerance Progress Towards Goals Slow Progress due to Medical Issues,Slow Progress due to Activity Tolerance Assessment Summary Pt continues to make slow progress due to poor activity tolerance. He performed sit to stand x1 Florentino from chair. He ambulated in room ~20' CGA with FWW with slow step to gait, no buckling or LOB demonstrated. He performed stairs x4 on platform step with cane and MaxA with handheld assist. Pt requires extra time for stairs due to pain and poor balance, required max cueing for sequencing. PT at this time is recommending SNF vs home with 24/ assist. Pt's barriers remaining to going home are poor activity tolerance and stairs. He does not currently have rails to support him into the house and spouse is the only one available at this time to assist. Pt would require 2 person assist into home at this time. If pt can increase tolerance to gait and perform stairs with decreased assist while in hospital he could possibly return home. Goals Bed Mobility Goal Standby Assistance Transfer Goal Standby Assistance,Front Wheeled Walker Gait Goal Standby Assistance,Front Wheel Walker Gait Distance 250 Other Goals up/down 3 steps without rails CGA up/down 15 steps B rails SBA Days to Meet Goals 10 Frequency of Treatment Frequency Of Treatment Twice a Day Treatment Plan Physical Therapy Treatment Plan Bed Mobility Training,Transfer Training,Gait Training, Therapeutic Exercise,Balance Retraining,Post Op Education, Discharge Planning,Hot or Cold Pack,Neuromuscular Re-ed, Coordination Retraining,Manual Therapy Other Recommendations and Next Treatment Caregiver trainin/9 @ 9 am Focus Precautions Anterior Hip Precautions No Hip Extension,No Hip External Rotation Weight Bearing Status Weight Bearing Status Weight Bear as Tolerated Allowed Weight Bearing Amount (enter % RLE WBAT or #) (%) Recommendations To Nursing Amount of Assist Needed 1 Person Assist Discharge Recommendations PT Discharge Recommendations Home with 24/ Assist Available,SNF Rehab,Home vs SNF Transportation Needs at Discharge Private Vehicle,Wheelchair/ Cabulance
[2023-03-24] MEDS: ACETAMINOPHEN 325 MG TABLET 650 MG PO ×3 (10:29→21:27)
--- NOTE | 2023-03-24 12:21 | PM.DS.1 ---
History of Present Illness History of Present Illness Date Patient Seen: 03/24/23 Time Patient Seen: 15:00 Chief complaint: Right Total Hip Arthroplasty/Anterior Approach Narrative: Patient is sitting up in his chair this afternoon with at bedside. Discharge Providers Provider Date of admission: 03/23/23 10:47 Primary care physician: Charles Keane MD Consults: 03/21/23 06:00 Consult to Anesthesiology Routine Comment: Consulting Provider: Anesthesiologist Reason for consultation: Regional block for post operative pain control 03/21/23 16:45 Consult to Discharge Planning Routine Comment: Consult to Occupational Therapy Evaluate & Treat Comment: Physician Instructions: Evaluate and treat Consult to Physical Therapy Evaluate & Treat Comment: Physician Instructions: post op YAZMIN protocol Discharge provider: Mia Jackson PA-C Summary Hospital Course Discharge Diagnosis: Status post right anterior total hip arthroplasty Hospital Course: Operative Date/Time/Diagnoses Date of procedure: 03/21/23 Time of procedure: 13:00 Pre-op diagnosis: Severe right hip OA Post-op diagnosis: same Procedure & Clinicians Procedure: Right total hip arthroplasty anterior approach Same procedure as scheduled: Yes Indications: The patient has had progressively worsening right hip pain with radiographic changes consistent with arthritis. Non-operative management has failed and the patient has requested total hip replacement. The risks, benefits and alternatives to surgery were discussed with the patient prior to proceeding. Risks discussed included, but were not limited to, failure to relieve pain, leg length discrepancy, dislocation, stiffness, infection, nerve damage, deep venous thrombosis, pulmonary embolism, stroke, coma, heart attack, permanent paralysis and , as well as the potential need for eventual revision of the prosthetic. Surgeon: Karol Feng Mechanical Engineering Technician: Adrianne Sahu Anesthesia Type: General and Spinal Operative Notes Findings: Severe right hip OA, adequate stability, soft bone, Closure Type: primary Specimen(s): none sent Prosthetic devices, grafts, tissues, transplants, or devices: Feng [employer]hew size 58 R3 cup, 36 x 58 neutral poly liner, 36+ 0 cobalt chrome head,0ne 6.5 screw, polar size 8 standard collared stem Estimated Blood Loss (mL): 250 Blood products transfused: none Exam Vital Signs (past 8 hours): - 03/24/23 05:45 03/24/23 08:00 Temperature 97.9 F 97.2 F L Pulse Rate 67 102 H Respiratory Rate 18 18 Blood Pressure 101/74 134/80 Pulse Oximetry 93 91 Oxygen Flow Rate 0 Oxygen Delivery Method Room Air Oxygen Flow Rate 0 Objective Labs 03/22/23 05:25 [facility] Medical History Amblyopia BPH w urinary obs/LUTS Chicken pox (~1955) Chronic anticoagulation Chronic atrial fibrillation Chronic pruritic rash in adult Essential hypertension (~1975) Fractures (~1966) Gout (~1980) Hammertoe of right foot History of pulmonary embolism (~2011) Localization-related epilepsy Measles (~1957) Mixed hyperlipidemia ENMA (obstructive sleep apnea) Osteoarthritis of right hip Osteopenia Rash Seizure disorder (~2004) Venous (peripheral) insufficiency Surgical History Anesthesia Brain abscess (~2003) History of Achilles tendon repair (~2007) History of hernia repair (~1975) Hx of colonoscopy Hx of craniotomy (2003) Social History household members: spouse Smoking Status: Former smoker alcohol intake: current Discharge Assessment & Plan Assessment and Plan Assessment: Patient progressing as expected after right anterior total hip arthroplasty, pod 1 Discharge Plan Discharge Plan Patient Disposition: SNF Provider Discharge Comment: Discharge when accepted to SNF, safe to transfer I certify the postop hospital m[facility]p care is medically necessary on a continuing basis for any conditions for which he/ she received care during this hospitalization.: Yes The receiving facility has agreed to accept transfer and provide medical treatment.: Yes Discharge orders & Medications Prescriptions: New acetaminophen 325 mg Tablet 650 mg PO Q6H Qty: 120 0RF Triamcinolone Acetonide 0.1% 1 applic topical BID PRN (Reason: rash) Qty: 1 0RF oxycodone 5 mg tablet 5 mg PO Q4H PRN (Reason: pain) Qty: 40 0RF Continued dabigatran etexilate [Pradaxa] 150 mg capsule 150 mg PO BID Qty: 180 3RF levetiracetam 500 mg tablet 500 mg PO BID Qty: 180 3RF docusate sodium [Colace] 100 mg capsule 200 mg PO DAILY (DME) Parking Permit... See Rx Instructions .Route .MEDSUPPLY Qty: 1 0RF Rx Instructions: As directed furosemide 20 mg tablet 40 mg PO DAILY Qty: 180 1RF metoprolol tartrate 25 mg tablet 12.5 mg PO BID Qty: 90 3RF Discontinued tramadol 50 mg tablet 25 mg PO BEDTIME PRN (Reason: pain) Follow up/Referrals: Charles Keane MD [Primary Care Provider] - Karol Feng MD [Physician] - 2 Weeks (Follow up with Orthopedics 2 weeks after surgery.) Diet/Activity/Treatments Diet: Diet as Tolerated Activity: Weightbearing as tolerated. Anterior hip precautions. Cold/Heat Therapy: Ice to hip as needed. Skin/Wound/Dressing Care Report to your healthcare provider any signs of infection, such as:: chills, fever, night sweats, unusual drainage and unusual redness Dressing: Keep dressing clean, dry, and intact until 2 week follow up with Orthopedics. Visit Report/Discharge Packet Instructions: DI for Hip Replacement Stand Alone Forms: Patient Portal/API, Surgery Discharge Discharge Data Primary Care Provider: Charles Keane V Attending Provider: Karol Feng Admit Date/Time: 03/23/23 10:47 Quality VTE Deep Vein Thrombosis/Pulmonary Embolism Present on Admission: No
--- NOTE | 2023-03-24 13:46 | PT.IPTN ---
Current Diagnoses Unilateral primary osteoarthritis, right hip (03/23/23) Surgery Performed Operation Date: 03/21/23 12:00 Actual Procedures p Total Hip Arthroplasty/Anterior Approach(Right) - Karol Feng MD Physical Therapy Treatment Note M2 PT-IP Current Condition Start: 03/22/23 12:39 Freq: NEEDED Status: Active Protocol: Document 03/22/23 10:36 AB (Rec: 03/22/23 13:02 AB [id number]) Physical Therapy Current Condition Current Condition Evaluation Date 03/22/23 Treatment Diagnosis s/p R YAZMIN anterior approach; difficulty in walking Onset Date 03/21/23 M3 PT-IP Subjective Start: 03/22/23 12:39 Freq: NEEDED Status: Active Protocol: Document 03/24/23 14:53 TS (Rec: 03/24/23 15:40 TS [id number]) Subjective Physical Therapy Visit Type Type Treatment Note Visit Start Time 13:46 Visit Stop Time 14:40 Total Visit Minutes 54 Notes Spouse present BP: 95/52 sitting, 84/63 Standing, 120/72 Standing after ambulation. Number of VEGETABLE HARVEST MACHINE OPERATOR Visits 4 Physical Therapy Visit Comments Patient Comments Pt found resting in chair, agreeable to PT. Therapy Pain Assessment Pain When Pain Assessed During Mobility Pain Present Pain Present Pain Reported M4 PT-IP Mobility and Gait Start: 03/22/23 12:39 Freq: NEEDED Status: Active Protocol: Document 03/24/23 14:53 TS (Rec: 03/24/23 15:40 TS [id number]) PT-Bed Mobility Assessment Supine to Sit Supine to Sit Contact Guard Assistance,1 Person Assistance Sit to Supine Sit to Supine Minimal Assistance,1 Person Assistance Scooting Scooting to Edge of Bed Contact Guard Assistance PT-Transfer Assessment Sit to and From Stand Sit to and from Stand Minimal Assistance,1 Person Assistance,Use of Upper Extremities Equipment Transfer Assistive Device Gait Belt,Front Wheeled Walker Orthotic/Prosthetic Devices or Brace: No Transfers Transfer Destination Chair Transfer Technique Stand Step Pivot Transfer Ability Level of Assist Contact Guard Assistance Comments Mobility Comments BP taken in sitting 95/52. Sit to stand with FWW Florentino, pt unsteady when coming into standing and grasping for FWW. BP taken in standing 84/63, pt denied any symptoms. He ambulated ~175' SBA with slow step to gait, no buckling or LOB but feels fatigued. He performed stairs x6 CGA with cane and RUE handrail assist, provided cues for step sequencing. Back in room he performed sit to supine Florentino for RLE and pt assisted with leg aviation safety technician. Supine to sit CGA for uprighting trunk, pt continued to use leg aviation safety technician out of bed. Sit to stand Florentino from elevated bed with FWW for stand pivot transfer into chair CGA. Pt was left in chair with call light nearby, spouse in room. Gait Assessment Gait Gait Assistance Required: Standby Assistance Distance (Feet) 175 Able to Maintain Weight Bearing Status Yes During Gait Assistive Devices Assistive Device Gait Belt,Front Wheeled Walker Orthotic/Prosthetic Devices or Brace: No Gait Deviations General Gait Pattern Antalgic,Decreased Stride Length,Decreased Feet Clearance,Step-to Gait Factors Limiting Gait Function Factors Limiting Gait Function Decreased Activity Tolerance, Decreased Strength,Difficulty Following Directions,Limited Range of Motion,Pain,Poor Balance,Poor Safety Awareness Comments Gait Comments See mobility comments. Stair Climbing Assessment Evaluation Level of Assist On Stairs Contact Guard Assistance,1 Person Assistance Devices Stair Climbing Assistive Devices Straight Cane,Right Railing Technique/Endurance Stair Climbing Direction Ascend and Descend Stair Climbing Technique Step to Step Number of Steps Climbed 6 Stair Climbing Set # Repetitions (reps) 1 Comments Stair Climbing Comments See mobility comments. PT-Balance Assessment Sitting Balance and Reactions Static Sitting Balance Ability Good Dynamic Sitting Balance Ability Good Standing Balance and Reactions Static Standing Balance Ability Good Dynamic Standing Balance Ability Fair Device Used FWW M5 PT-IP Objective Assessments Start: 03/22/23 12:39 Freq: NEEDED Status: Active Protocol: Document 03/22/23 10:36 AB (Rec: 03/22/23 13:02 AB [id number]) Orientation Orientation/Cognition Level of Alertness Confusional State Language Function Ability Hard of Hearing Safety Awareness Decreased Safety Awareness Memory Description Short Term Impaired Gross Range of Motion Lower Extremity ROM Assessment Bilaterally Impaired Impairments B ankle in eversion Strength Lower Extremity Strength Assessment Right Impaired Hip 3-/5 Knee 3+/5 Muscle Tone Muscle Tone WNL Yes M6 PT-IP Treatment Start: 03/22/23 12:39 Freq: NEEDED Status: Active Protocol: Document 03/24/23 14:53 TS (Rec: 03/24/23 15:40 TS [id number]) Physical Therapy Treatment Education Education Provided Precautions,Safety M7 PT-IP Assessment and Plan Start: 03/22/23 12:39 Freq: NEEDED Status: Active Protocol: Document 03/24/23 14:53 TS (Rec: 03/24/23 15:40 TS [id number]) PT Summary Assessment and Plan Potential Rehabilitation Potential Good Summary Impairments Pain,ROM,Strength,Balance, Coordination,Sensation,Tone, Cognition,Bed Mobility, Transfers,Gait,Activity Tolerance Progress Towards Goals Progressing Toward Goals Assessment Summary Pt is progressing well with his mobility this session. He continues to require Florentino for sit to stands due to poor balance initially coming into standing. He progressed his gait to ~175' SBA with FWW, gait is slow and fatigues quickly due to poor activity tolerance, has no buckling or LOB. He progressed to stairs x6 CGA with RUE handrail assist and hurrycane in LUE, pt slow/cautious to take steps , no buckling or LOB. He required some assistance with bed mobility for uprighting trunk and RLE assist, he was SOB after bed mobility. Pt's BP is low in sitting 95/52 and 84/63 in standing, he denied any dizziness or other symptoms. After ambulation in standing BP increased to 120/ 72. PT is recommending SNF vs Home 24/7 assist. Pt would benefit from continued daily PT to progress safely back to home and increase activity tolerance. Goals Bed Mobility Goal Standby Assistance Transfer Goal Standby Assistance,Front Wheeled Walker Gait Goal Standby Assistance,Front Wheel Walker Gait Distance 250 Other Goals up/down 3 steps without rails CGA up/down 15 steps B rails SBA Days to Meet Goals 10 Frequency of Treatment Frequency Of Treatment Twice a Day Treatment Plan Physical Therapy Treatment Plan Bed Mobility Training,Transfer Training,Gait Training, Therapeutic Exercise,Balance Retraining,Post Op Education, Discharge Planning,Hot or Cold Pack,Neuromuscular Re-ed, Coordination Retraining,Manual Therapy Precautions Anterior Hip Precautions No Hip Extension,No Hip External Rotation Weight Bearing Status Weight Bearing Status Weight Bear as Tolerated Allowed Weight Bearing Amount (enter % RLE WBAT or #) (%) Recommendations To Nursing Amount of Assist Needed 1 Person Assist Discharge Recommendations PT Discharge Recommendations Home with 24/7 Assist Available,SNF Rehab,Home vs SNF Transportation Needs at Discharge Private Vehicle,Wheelchair/ Cabulance
--- NOTE | 2023-03-24 15:05 | P.PN_ITS ---
Subjective Subjective Interval history: Patient is sitting up in chair this afternoon with at bedside. He states he is doing fine today, just worked with physical therapy. He notes that he still feels quite weak and needs to work on strengthening. We discussed that this is the reason he was recommended to discharge to correction facility for rehabilitation. Patient and are in agreement of this. Denies fever, chills, chest pain, shortness of breath. Patient complains of new pruritic rash starting yesterday. He has had a similar rash before that required oral steroid taper -he normally sees a air gun operator in [place]. Home topical triamcinolone started. Exam Vital Signs (past 8 hours): - 03/24/23 08:00 Temperature 97.2 F L Pulse Rate 102 H Respiratory Rate 18 Blood Pressure 134/80 Pulse Oximetry 91 Oxygen Delivery Method Room Air Oxygen Flow Rate 0 Narrative Exam Narrative: Pleasant 78-year-old male. Awake, alert, and oriented. Intraoperative Aquacel clean, dry, and intact. Strength and sensation grossly intact to bilateral lower extremities. Bilateral calves boggy, tender, nonpainful to palpation. Erythematous pruritic petechial rash evident over 50% of patients body - worst to posterior bilateral lower extremities and upper abdomen. Bilateral lower extremities remain edematous. 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 Essential hypertension (~1975) Fractures (~1966) Gout (~1980) Hammertoe of right foot History of pulmonary embolism (~2011) Localization-related epilepsy Measles (~1957) Mixed hyperlipidemia ENMA (obstructive sleep apnea) Osteoarthritis of right hip Osteopenia Rash Seizure disorder (~2004) Venous (peripheral) insufficiency Surgical History Anesthesia Brain abscess (~2003) History of Achilles tendon repair (~2007) History of hernia repair (~1975) Hx of colonoscopy Hx of craniotomy (2003) Social History household members: spouse Smoking Status: Former smoker alcohol intake: current Assessment & Plan Post-op Postoperative Procedures: Procedures Operation Date: 03/21/23 12:00 Actual Procedure Side Surgeon p Total Hip Arthroplasty/Anterior Approach Right Karol Feng MD Postoperative day: 3 Postoperative status: doing well and urinary retention Postoperative status narrative: Patient is recovering following right total hip arthroplasty, anterior approach has been complicated by medical history, urinary retention, weakness and poor balance. Postoperative plan: routine post-op care Postoperative plan narrative: Plan to continue working with physical therapy. Patient to discharge to correction facility for continued rehabilitation tomorrow 03/25/2023. Continue multimodal pain regimen as needed. Continue home topical triamcinolone for rash, use Vistaril as needed for itching. Follow up with Orthopedics 2 weeks after surgery. Maintain anterior hip precautions. Time Spent With Patient Time with patient: 15-24 minutes Quality VTE Deep Vein Thrombosis/Pulmonary Embolism Present on Admission: No
--- NOTE | 2023-03-24 16:13 | CM.DPC ---
DCP/continued: Received notification around 2:00pm today that [facility] has authorized short SNF stay auth# [id number] per Berta. Initially, [facility] choice was [facility]. CM team attempted to reach [facility] all day today without any return phone calls. Therefore, second choice appeared to be [facility] and they could accept tomorrow -. Per Evelyn she can arrange transport. ADMINISTRATIVE TECHNICIAN and RN/GAYATRIP met with patient and spouse and they report that they would like us to continue to reach out to [facility] and that there second choice is not [facility] rather it is [facility]. ADMINISTRATIVE TECHNICIAN asked RN REFERRAL to send clinicals to all 3 facilities. Director placed call to [facility]'s main line spoke with imaging administrator/Duyen. She assured this director that there was someone working in admit today? She asked that I wait a few minutes and she go see what's going on. Several minutes later received call from Monse at [facility], she apologized for long wait time today. Monse confirms that they can accept. She checked with [facility] to see if they could fish bait picker tonight however, they are unable. Therefore, patient scheduled to be picked up in AM on 03-25 at 10:00AM. RN updated. Orders, PASSR, and copy of script faxed to [facility] per their request. P: [facility] tomorrow via [facility]. Monse reports that [facility] will cover cost of transport. CM team to finalize in AM. KADEN
[2023-03-24 20:20] VITALS: BP 132/78; PULSE 72; RESP 18; TEMP 36.4; O2SAT 95
[2023-03-25 08:00] VITALS: BP 107/61; PULSE 68; RESP 20; TEMP 36.5; O2SAT 93
--- NOTE | 2023-03-25 09:10 | PT.IPTN ---
Current Diagnoses Unilateral primary osteoarthritis, right hip (03/23/23) Surgery Performed Operation Date: 03/21/23 12:00 Actual Procedures p Total Hip Arthroplasty/Anterior Approach(Right) - Karol Feng MD Physical Therapy Treatment Note M2 PT-IP Current Condition Start: 03/22/23 12:39 Freq: NEEDED Status: Active Protocol: Document 03/22/23 10:36 AB (Rec: 03/22/23 13:02 AB [id number]) Physical Therapy Current Condition Current Condition Evaluation Date 03/22/23 Treatment Diagnosis s/p R YAZMIN anterior approach; difficulty in walking Onset Date 03/21/23 M3 PT-IP Subjective Start: 03/22/23 12:39 Freq: NEEDED Status: Active Protocol: Document 03/25/23 09:33 TS (Rec: 03/25/23 09:46 TS [id number]) Subjective Physical Therapy Visit Type Type Treatment Note Visit Start Time 09:10 Visit Stop Time 09:30 Total Visit Minutes 20 Notes Spouse present Physical Therapy Visit Comments Patient Comments Pt found resting in bed, agreeable to PT. M4 PT-IP Mobility and Gait Start: 03/22/23 12:39 Freq: NEEDED Status: Active Protocol: Document 03/25/23 09:33 TS (Rec: 03/25/23 09:46 TS [id number]) PT-Bed Mobility Assessment Supine to Sit Supine to Sit Contact Guard Assistance,1 Person Assistance Scooting Scooting to Edge of Bed Contact Guard Assistance PT-Transfer Assessment Sit to and From Stand Sit to and from Stand Contact Guard Assistance,1 Person Assistance,Use of Upper Extremities Equipment Transfer Assistive Device Gait Belt,Front Wheeled Walker Orthotic/Prosthetic Devices or Brace: No Comments Mobility Comments Supine to sit HOB elevated CGA with BUE support for uprighting trunk and pt uses leg bait painter to EOB. Sit to stand CGA from elevated bed with FWW, pt demonstrates good balance coming into standing with no reroleaning. He ambulated ~200' SBA with FWW, slow step to gait, slightly unsteady in FWW but has no buckling or LOB. Pt back to room in chair, with call light nearby, spouse in room. Gait Assessment Gait Gait Assistance Required: Standby Assistance Distance (Feet) 200 Able to Maintain Weight Bearing Status Yes During Gait Assistive Devices Assistive Device Gait Belt,Front Wheeled Walker Orthotic/Prosthetic Devices or Brace: No Gait Deviations General Gait Pattern Antalgic,Decreased Stride Length,Decreased Feet Clearance,Step-to Gait Factors Limiting Gait Function Factors Limiting Gait Function Decreased Activity Tolerance, Decreased Strength,Limited Range of Motion,Pain,Poor Balance,Poor Safety Awareness Comments Gait Comments See mobility comments. PT-Balance Assessment Sitting Balance and Reactions Static Sitting Balance Ability Good Dynamic Sitting Balance Ability Good Standing Balance and Reactions Static Standing Balance Ability Good Dynamic Standing Balance Ability Fair Device Used FWW M5 PT-IP Objective Assessments Start: 03/22/23 12:39 Freq: NEEDED Status: Active Protocol: Document 03/22/23 10:36 AB (Rec: 03/22/23 13:02 AB [id number]) Orientation Orientation/Cognition Level of Alertness Confusional State Language Function Ability Hard of Hearing Safety Awareness Decreased Safety Awareness Memory Description Short Term Impaired Gross Range of Motion Lower Extremity ROM Assessment Bilaterally Impaired Impairments B ankle in eversion Strength Lower Extremity Strength Assessment Right Impaired Hip 3-/5 Knee 3+/5 Muscle Tone Muscle Tone WNL Yes M6 PT-IP Treatment Start: 03/22/23 12:39 Freq: NEEDED Status: Active Protocol: Document 03/25/23 09:33 TS (Rec: 03/25/23 09:46 TS [id number]) Physical Therapy Treatment Education Education Provided Precautions,Safety M7 PT-IP Assessment and Plan Start: 03/22/23 12:39 Freq: NEEDED Status: Active Protocol: Document 03/25/23 09:33 TS (Rec: 03/25/23 09:46 TS [id number]) PT Summary Assessment and Plan Potential Rehabilitation Potential Good Summary Impairments Pain,ROM,Strength,Balance, Coordination,Sensation,Tone, Cognition,Bed Mobility, Transfers,Gait,Activity Tolerance Progress Towards Goals Progressing Toward Goals Assessment Summary Pt progressed his gait to ~200 ' SBA with FWW with a slightly quicker pace than previous sessions. He required decreased assist for bed mobility with use of leg bait painter. His balance was more steady with sit to stands with decreased retroleaning coming into standing. PT is recommending SNF for improved activity tolerance and functional mobility for increased independence before returning home. Goals Bed Mobility Goal Standby Assistance Transfer Goal Standby Assistance,Front Wheeled Walker Gait Goal Standby Assistance,Front Wheel Walker Gait Distance 250 Other Goals up/down 3 steps without rails CGA up/down 15 steps B rails SBA Days to Meet Goals 10 Frequency of Treatment Frequency Of Treatment Twice a Day Treatment Plan Physical Therapy Treatment Plan Bed Mobility Training,Transfer Training,Gait Training, Therapeutic Exercise,Balance Retraining,Post Op Education, Discharge Planning,Hot or Cold Pack,Neuromuscular Re-ed, Coordination Retraining,Manual Therapy Precautions Anterior Hip Precautions No Hip Extension,No Hip External Rotation Weight Bearing Status Weight Bearing Status Weight Bear as Tolerated Allowed Weight Bearing Amount (enter % RLE WBAT or #) (%) Recommendations To Nursing Amount of Assist Needed 1 Person Assist Discharge Recommendations PT Discharge Recommendations SNF Rehab Transportation Needs at Discharge Private Vehicle,Wheelchair/ Cabulance
[2023-03-25] MEDS: DABIGATRAN 75 MG CAPSULE 150 MG PO (09:37)
[2023-03-25] MEDS: ACETAMINOPHEN 325 MG TABLET 650 MG PO (09:37)
[2023-03-25] MEDS: FUROSEMIDE 20 MG TABLET 40 MG PO (09:38)
[2023-03-25] MEDS: levETIRAcetam 250 MG TABLET 500 MG PO (09:39)
[2023-03-25] MEDS: METOPROLOL IR 25 MG TABLET 12.5 MG PO (09:40)
--- NOTE | 2023-03-25 11:41 | PC.NURSE ---
Transfer: Pt feels ready to transfer to facility. He is a little nervous but spouse is with him and she gives pt good supportt. Called Anit[facility] at [facility] to give staff report. Anitra is the admission nurse today. Reviewed hospital course and adl's. Pt has been working with PT and reports he has made big steps in his mobility but still feels rehab is necessary with his leg. Discussed skin. He has a severe rash to the torso and groin area. Spouse is taking pictures to send to his carpet installer helper. Questions answered. Pt d/c to facility via their van.
--- NOTE | 2023-03-25 12:42 | PM.DS.1 ---
History of Present Illness History of Present Illness Date Patient Seen: 03/25/23 Time Patient Seen: 12:43 Chief complaint: hip pain Narrative: Patient is sitting up in chair this afternoon with at bedside.? He states he is doing fine today, just worked with physical therapy.? He notes that he still feels quite weak and needs to work on strengthening.? We discussed that this is the reason he was recommended to discharge to intermediate facility for rehabilitation.? Patient and are in agreement of this.? Denies fever, chills, chest pain, shortness of breath.? Discharge Providers Provider Date of admission: 03/23/23 10:47 Discharge Date: 03/25/23 Primary care physician: Charles Keane MD Consults: 03/21/23 06:00 Consult to Anesthesiology Routine Comment: Consulting Provider: Anesthesiologist Reason for consultation: Regional block for post operative pain control 03/21/23 16:45 Consult to Discharge Planning Routine Comment: Consult to Occupational Therapy Evaluate & Treat Comment: Physician Instructions: Evaluate and treat Consult to Physical Therapy Evaluate & Treat Comment: Physician Instructions: post op YAZMIN protocol Discharge provider: Surjit Quinn PA-C Summary Hospital Course Discharge Diagnosis: Severe right hip OA Post-op diagnosis: same Hospital Course: Right total hip arthroplasty anterior approach Same procedure as scheduled: Yes Indications: The patient has had progressively worsening right hip pain with radiographic changes consistent with arthritis. Non-operative management has failed and the patient has requested total hip replacement. The risks, benefits and alternatives to surgery were discussed with the patient prior to proceeding. Risks discussed included, but were not limited to, failure to relieve pain, leg length discrepancy, dislocation, stiffness, infection, nerve damage, deep venous thrombosis, pulmonary embolism, stroke, coma, heart attack, permanent paralysis and , as well as the potential need for eventual revision of the prosthetic. Surgeon: Karol Feng Electric Engine Mechanic: Adrianne Sahu Anesthesia Type: General and Spinal Operative Notes Findings: Severe right hip OA, adequate stability, soft bone, Closure Type: primary Specimen(s): none sent Prosthetic devices, grafts, tissues, transplants, or devices: Feng [employer] Nephew size 58 R3 cup, 36 x 58 neutral poly liner, 36+ 0 cobalt chrome head,0ne 6.5 screw, polar size 8 standard collared stem Estimated Blood Loss (mL): 250 Blood products transfused: none Plan to continue working with physical therapy.? Patient to discharge to intermediate facility for continued rehabilitation today.? Continue multimodal pain regimen as needed.? Continue home topical triamcinolone for rash, use Vistaril as needed for itching.? Follow up with Orthopedics 2 weeks after surgery.? Maintain anterior hip precautions. Status at Discharge Cognitive/behavioral status at discharge: at baseline, oriented Functional status at discharge: uses cane/walker Overall status at discharge: patient is progressing back to baseline Exam Vital Signs (past 8 hours): - 03/25/23 08:00 03/25/23 07:45 Temperature 97.7 F Pulse Rate 68 Respiratory Rate 20 Blood Pressure 107/61 Pulse Oximetry 93 Oxygen Delivery Method Room Air Oxygen Flow Rate 0 Oxygen Delivery Method Room Air Oxygen Flow Rate 0 Narrative Exam Narrative: Pleasant 78-year-old male.? Awake, alert, and oriented.? Intraoperative Aquacel clean, dry, and intact.? Strength and sensation grossly intact to bilateral lower extremities.? Bilateral calves boggy, tender, nonpainful to palpation.? Erythematous pruritic petechial rash evident over 50% of patients body - worst to posterior bilateral lower extremities and upper abdomen.? Bilateral lower extremities remain edematous. Const General: cooperative Objective Labs 03/22/23 05:25 PFSH Medical History Amblyopia BPH w urinary obs/LUTS Chicken pox (~1955) Chronic anticoagulation Chronic atrial fibrillation Chronic pruritic rash in adult Essential hypertension (~1975) Fractures (~1966) Gout (~1980) Hammertoe of right foot History of pulmonary embolism (~2011) Localization-related epilepsy Measles (~1957) Mixed hyperlipidemia ENMA (obstructive sleep apnea) Osteoarthritis of right hip Osteopenia Rash Seizure disorder (~2004) Venous (peripheral) insufficiency Surgical History Anesthesia Brain abscess (~2003) History of Achilles tendon repair (~2007) History of hernia repair (~1975) Hx of colonoscopy Hx of craniotomy (2003) Social History household members: spouse Smoking Status: Former smoker alcohol intake: current Discharge Assessment & Plan Assessment and Plan Assessment: Patient progressing after right anterior total hip arthroplasty, Plan of Treatment: Continue multimodal pain regimen as needed.? Continue home topical triamcinolone for rash, use Vistaril as needed for itching.? Follow up with Orthopedics 2 weeks after surgery.? Maintain anterior hip precautions. DC to SNF Discharge Plan Discharge Plan Patient Disposition: SNF Provider Discharge Comment: Discharge when accepted to SNF, safe to transfer I certify the postop hospital intermediate care is medically necessary on a continuing basis for any conditions for which he/ she received care during this hospitalization.: Yes The receiving facility has agreed to accept transfer and provide medical treatment.: Yes Discharge orders & Medications Prescriptions: New acetaminophen 325 mg Tablet 650 mg PO Q6H Qty: 120 0RF Triamcinolone Acetonide 0.1% 1 applic topical BID PRN (Reason: rash) Qty: 1 0RF oxycodone 5 mg tablet 5 mg PO Q4H PRN (Reason: pain) Qty: 40 0RF hydroxyzine pamoate [Vistaril] 25 mg capsule 25 mg PO Q4-6H PRN (Reason: itching) Qty: 40 0RF Continued dabigatran etexilate [Pradaxa] 150 mg capsule 150 mg PO BID Qty: 180 3RF levetiracetam 500 mg tablet 500 mg PO BID Qty: 180 3RF docusate sodium [Colace] 100 mg capsule 200 mg PO DAILY (DME) Parking Permit... See Rx Instructions .Route .MEDSUPPLY Qty: 1 0RF Rx Instructions: As directed furosemide 20 mg tablet 40 mg PO DAILY Qty: 180 1RF metoprolol tartrate 25 mg tablet 12.5 mg PO BID Qty: 90 3RF Discontinued tramadol 50 mg tablet 25 mg PO BEDTIME PRN (Reason: pain) Follow up/Referrals: Charles Keane MD [Primary Care Provider] - Karol Feng MD [Physician] - 2 Weeks (Follow up with Orthopedics 2 weeks after surgery.) Diet/Activity/Treatments Diet: Diet as Tolerated Activity: Weightbearing as tolerated. Anterior hip precautions. Cold/Heat Therapy: Ice to hip as needed. Skin/Wound/Dressing Care Report to your healthcare provider any signs of infection, such as:: chills, fever, night sweats, unusual drainage and unusual redness Dressing: Keep dressing clean, dry, and intact until 2 week follow up with Orthopedics. Visit Report/Discharge Packet Instructions: DI for Hip Replacement Stand Alone Forms: Patient Portal/API, Surgery Discharge Discharge Data Primary Care Provider: Charles Keane V Attending Provider: Karol Feng Admit Date/Time: 03/23/23 10:47 Quality VTE Deep Vein Thrombosis/Pulmonary Embolism Present on Admission: No
--- NOTE | 2023-03-25 15:22 | CM.DPC ---
DCP Discharge SNF Per Ortho PA, pt remains medically stable to d/c to SNF today and no barriers to discharge. CC Emily confirmed that [facility] can still accept today and transport still scheduled for 1000 today and CC Emily faxed signed med list, script, MD KWAN orders, no COVID swab needed, and d/c summary to review. CARMELLA Quiñonez met bedside with pt and spouse and confirmed they remain agreeable to d/c to [facility] today via cabulance and RN, HYPERCIL CORE TRANSFORMER ASSEMBLER, and exceptional student education aide updated and d/c packet completed. Plan: Patient to discharge to [facility] via cabulance at 1000 today before safe return home with spouse. DEB Farooq
== END 2023-03-25 09:59 ==
LOC: OR 03-24 09:10 → AC 03-24 09:10
PROVIDERS: Admitting Provider Orthopaedic Surgery; Family Provider Internal Medicine; PCP Internal Medicine; Referring Provider Orthopaedic Surgery; Visit Provider Orthopaedic Surgery
PROC: (CPT 27130; principal; 2023-03-21 12:00)
DX: M16.11 Unilateral primary osteoarthritis, right hip (principal); I10 Essential (primary) hypertension; G47.33 Obstructive sleep apnea (adult) (pediatric); N40.1 Benign prostatic hyperplasia with lower urinary tract symptoms; Z87.891 Personal history of nicotine dependence; I48.91 Unspecified atrial fibrillation
CPT/HCPCS: 27130; 36415; 73502; 76000; 85014; 85018; 97116; 97162; 97166; 97530; 97535; C1776; G0378; C9290; J0171; J0690; J2250; J2704; J3010

== ENCOUNTER → 2023-04-09 10:29 | Outpatient (CLI) | payer OTHER, SELFPAY ==
[2023-03-21 18:50] VITALS: BMI 21.1
[2023-04-09 13:30] LABS: Appearance Urine UA CLEAR; Bilirubin Urine UA NEGATIVE (NEGATIVE); Color Urine UA YELLOW; Glucose Urine UA NEGATIVE (Negative); Ketones Urine UA NEGATIVE (NEGATIVE); Leukocyte Esterase Urine UA NEGATIVE (NEGATIVE); Nitrite Urine UA NEGATIVE (Negative); Occult Blood Urine UA NEGATIVE (Negative); Protein Urine UA NEGATIVE (Negative); Specific Gravity Urine UA 1.015 (1.000-1.035); pH Urine UA 7.5 (4.5-8.0)
[2023-04-09 13:51] LABS: Bacteria Urine None Seen; Culture Indicated Urine Cult Not Indicated; RBC Urine None Seen (0-5/HPF); Squamous Epithelial Cell Urine 0-1 /HPF (0-5/HPF); WBC Urine None Seen (0-5/HPF)
== END ==
PROVIDERS: Family Provider Internal Medicine; PCP Internal Medicine; Referring Provider Internal Medicine; Visit Provider Internal Medicine
DX: G40.909 Epilepsy, unspecified, not intractable, without status epilepticus (principal); I10 Essential (primary) hypertension; I87.2 Venous insufficiency (chronic) (peripheral); N40.1 Benign prostatic hyperplasia with lower urinary tract symptoms; N13.8 Other obstructive and reflux uropathy
CPT/HCPCS: 81001

== ENCOUNTER → 2023-04-15 10:04 | Outpatient (CLI) | payer OTHER, SELFPAY ==
[2023-03-21 18:50] VITALS: BMI 21.1
[2023-04-15 11:28] LABS: Blood Urea Nitrogen 18 mg/dL (9-20); Calcium 8.6 mg/dL (8.4-10.2); Carbon Dioxide 34 mmol/L (22-32); Chloride 97 mmol/L (98-107); Estimated Glomerular Filt Rate > 60 mL/min (>60); Glucose 91 mg/dL (80-110); HEMOLYSIS < 15 (0-50); Potassium 3.8 mmol/L (3.4-5.1); Sodium 135 mmol/L (137-145)
[2023-04-18 11:45] LABS: Levetiracetam Keppra 17.3 ug/mL (10.0-40.0)
== END ==
PROVIDERS: Family Provider Internal Medicine; PCP Internal Medicine; Referring Provider Internal Medicine; Visit Provider Internal Medicine
DX: G40.909 Epilepsy, unspecified, not intractable, without status epilepticus (principal); I10 Essential (primary) hypertension; I87.2 Venous insufficiency (chronic) (peripheral); N13.8 Other obstructive and reflux uropathy; N40.1 Benign prostatic hyperplasia with lower urinary tract symptoms
CPT/HCPCS: 36415; 80048; 80177

== ENCOUNTER 2023-04-17 09:20 | Emergency (ER) | payer OTHER, SELFPAY ==
[2023-03-21 18:50] VITALS: BMI 21.1
[2023-04-17] VITALS (8 sets, daily range): BP systolic 121–144; BP diastolic 75–113; PULSE 47–113; RESP 15–27; TEMP 37; O2SAT 92–100; BMI 21.1
--- NOTE | 2023-04-17 09:48 | DI.CT.S_ITS ---
PROCEDURE: CT HEAD/BRAIN WO CON INDICATIONS: fall on pradaxa TECHNIQUE: Noncontrast 4.5 mm thick angled axial sections acquired from the foramen magnum to the vertex, with coronal and sagittal reformats. For radiation dose reduction, the following was used: automated exposure control, adjustment of mA and/or kV according to patient size. COMPARISON: [facility], MR, BRAIN WITHOUT CONTRAST, 11/08/2013, 14:57. [facility], MR, STROKE PROTOCOL, 04/11/2011, 11:19. [facility], MR, BRAIN WITHOUT CONTRAST, 04/10/2011, 10:26. [facility], CT, HEAD WITHOUT CONTRAST, 04/10/2011, 9:38. FINDINGS: Image quality: Excellent. CSF spaces: Basal cisterns are patent. No extra-axial fluid collections. The ventricles are symmetric in size and shape. Brain: No intracranial bleeds or masses. There is cerebral volume loss for age, with resultant ventricular and sulcal prominence. There are periventricular and deep white matter chronic small vessel ischemic changes. There is stable focal volume loss seen involving anterior right temporal lobe. There is intracranial internal carotid artery atherosclerosis. Skull and face: Right-sided craniotomy change can be seen. Calvarium and visualized facial bones appear intact, without suspicious lesions. Sinuses: Visualized sinuses and mastoids are clear. IMPRESSION: No acute intracranial hemorrhage is seen. No acute intracranial process is seen. Focal volume loss seen involving anterior right temporal lobe, with overlying craniotomy change. Dictated by: Miguel Metz M.D. on 04/17/2023 at 9:42 Approved by: Miguel Metz M.D. on 04/17/2023 at 9:46
--- NOTE | 2023-04-17 10:06 | PC.NURSE ---
pt right leg is +3 pitting edema with multiple open sores around ankle. pt right leg is +1 pitting edema. pt states this started after his hip surgery one month ago. we was placed in a skilled rehab center to heal and started out with terrible rash bilaterally up both legs with swelling, he was placed on a steroid taper pack and his lasix was doubled. this has helped with the rash and some of the swelling but the swelling is now getting worse again and his weight count operator was worried this needs further evaluation.
--- NOTE | 2023-04-17 10:08 | ED_ITS ---
HPI - Fall General Chief Complaint: Fall Stated Complaint: fell T-6 on blood thinners/weeping on legs Time Seen by Provider: 04/17/23 09:36 Source: patient Mode of arrival: Ambulatory History of Present Illness HPI Narrative: Patient is a 78-year-old male who is here for evaluation of a fall that he sustained about 6 days ago. He is on blood thinners. Patient states he was sent by his primary doctor. Family who was with him at bedside states an after the fall he was somewhat confused but that seems to have resolved. He does have bruising around his left eye. He is no neck pain. He states that he does know how he fell but is reluctant to give any specific information of this. He is also here for evaluation of wounds that he has to both of his lower extremities specifically worse on the right than the left. He denies any fevers. He was seen at Podiatry yesterday for an unrelated reason and was told that he needed to come to the emergency department for further evaluation. These wounds have been there for some time. He did have a significant rash most likely related to antibiotics after a hip surgery in his wound seemed to start after that. He is not seen wound care. They are weeping and somewhat uncomfortable. He denies any fevers. Related Data Home Medications Medication Instructions Recorded Confirmed hydroxyzine pamoate 25 mg capsule 25 mg PO BEDTIME PRN itching 04/09/23 04/09/23 (Vistaril) triamcinolone acetonide 0.1 % 1 applic topical BID PRN 04/09/23 04/09/23 topical cream Previous Rx's Medication Instructions Recorded dabigatran etexilate 150 mg 150 mg PO BID #180 caps 08/06/22 capsule (Pradaxa) levetiracetam 500 mg tablet 500 mg PO BID #180 tabs 10/24/22 Parking Permit... #1 ea 02/14/23 metoprolol tartrate 25 mg tablet 12.5 mg PO BID #90 tabs 02/28/23 acetaminophen 325 mg tablet 650 mg PO Q6H #120 tabs 03/22/23 furosemide 20 mg tablet 40 mg PO BID #360 tabs 04/09/23 Allergies Allergy/AdvReac Type Severity Reaction Status Date / Time phenytoin AdvReac Severe Mood swings Verified 04/17/23 09:34 Review of Systems Review of Systems ROS Unobtainable: All systems reviewed & are unremarkable except as noted in HPI and below Patient History Medical History Amblyopia BPH w urinary obs/LUTS Chicken pox (~1955) Chronic anticoagulation Chronic atrial fibrillation Chronic pruritic rash in adult Essential hypertension (~1975) Fractures (~1966) Gout (~1980) Hammertoe of right foot History of pulmonary embolism (~2011) Localization-related epilepsy Measles (~1957) Mixed hyperlipidemia ENMA (obstructive sleep apnea) Osteoarthritis of right hip Osteopenia Rash Seizure disorder (~2004) Venous (peripheral) insufficiency Surgical History Anesthesia Brain abscess (~2003) History of Achilles tendon repair (~2007) History of hernia repair (~1975) Hx of colonoscopy Hx of craniotomy (2003) Social History household members: spouse Smoking Status: Former smoker alcohol intake: current Smoking Status: Former smoker alcohol intake frequency: 0-2 drinks per day Substance Use Type: marijuana Exam Initial Vital Signs Initial Vital Signs: Vital Signs Temperature 98.6 F 04/17/23 09:23 Pulse Rate 71 04/17/23 09:23 Respiratory Rate 15 04/17/23 09:23 Blood Pressure 121/85 04/17/23 09:23 Pulse Oximetry 100 04/17/23 09:23 Oxygen Delivery Method Room Air 04/17/23 09:23 Const General: cooperative, comfortable and No ill appearing HENMT Head: atraumatic Eyes Other: Bruising above the left eye Resp Effort & Inspection: normal respiratory effort Cardio Rate: regular rate Skin Other: Patient does have multiple ulcerations and various stages of healing on his lower extremities specifically from his knees to his ankles. There is minimal if any surrounding erythema. There is some clear drainage. No crusting noted. No crepitus noted. Extrem General: edema Scores GCS [place] coma scale eye opening: Spontaneous Karthik coma scale verbal response: Orientated [place] coma scale motor response: Obey commands Karthik coma scale total score: 15 Course Orders Ordered: ED Orders 04/17/23 09:48 CT head/brain wo con Stat 04/17/23 10:04 Wound Culture and Gram Stain Stat Wound Culture and Gram Stain Stat 04/17/23 10:45 Basic Metabolic Panel Stat Complete Blood Count AUTO DIFF Stat 04/17/23 10:48 Blood Culture Stat Vital Signs Vital signs: Vital Signs - 8 hr 04/17/23 09:23 04/17/23 09:39 04/17/23 09:41 Temperature 98.6 F Pulse Rate 71 Respiratory Rate 15 Blood Pressure 121/85 144/75 H Pulse Oximetry 100 94 Oxygen Delivery Method Room Air 04/17/23 09:41 04/17/23 10:00 04/17/23 10:00 Temperature Pulse Rate 47 L 104 H Respiratory Rate 27 H Blood Pressure 138/79 Pulse Oximetry 95 94 Oxygen Delivery Method 04/17/23 10:33 04/17/23 10:34 04/17/23 10:34 Temperature Pulse Rate 113 H 95 H Respiratory Rate 17 Blood Pressure 144/79 H Pulse Oximetry 99 98 Oxygen Delivery Method MDM - Fall Medical Records Attestation: I reviewed the patient's medical records. Lab Data Attestation: I reviewed the patient's lab results. 04/17/23 10:45 04/17/23 10:45 Labs: Lab Results 04/17/23 04/17/23 Range/Units 10:45 10:45 WBC 5.6 (4.5-11.0) X10^3/uL RBC 4.11 L (4.5-5.9) X10^6/uL Hgb 13.7 (13.5-17.5) g/dL Hct 41.3 (41-53) % MCV 100.4 H (80-100) fL MCH 33.3 (26-34) PG MCHC 33.1 (30-36) % RDW 14.5 (11.6-14.8) % Plt Count 189 (150-400) X10^3/uL Neut % (Auto) 69.9 (50-75) % Lymph % (Auto) 17.1 L (25-40) % [place] % (Auto) 9.9 (3-14) % Eos % (Auto) 2.3 (2-4) % Baso % (Auto) 0.8 (0-2) % Neut # (Auto) 3900 (0288-7532) /uL Lymph # (Auto) 1000 L (1171-5469) /uL [place] # (Auto) 600 (0-900) /uL Eos # (Auto) 100 (0-450) /uL Baso # (Auto) 0 (0-100) /uL Sodium 136 L (137-145) mmol/L Potassium 4.1 (3.4-5.1) mmol/L Chloride 97 L (98-107) mmol/L Carbon Dioxide 35 H (22-32) mmol/L BUN 25 H (9-20) mg/dL Creatinine 0.99 (0.66-1.25) mg/dL Estimated GFR > 60 (>60) mL/min BUN/Creatinine Ratio 25.3 H (6-22) Glucose 104 (80-110) mg/dL Calcium 8.5 (8.4-10.2) mg/dL Imaging Data CT scan - head: Radiologist's Impression: PROCEDURE:? CT HEAD/BRAIN WO CON ? INDICATIONS:? fall on pradaxa ? TECHNIQUE:? Noncontrast 4.5 mm thick angled axial sections acquired from the foramen magnum to the vertex, with coronal and sagittal reformats.? For radiation dose reduction, the following was used:? automated exposure control, adjustment of mA and/or kV according to patient size.? ? COMPARISON:? [facility], MR, BRAIN WITHOUT CONTRAST, 11/08/2013, 14:57.? [facility], MR, STROKE PROTOCOL, 04/11/2011, 11:19.? [facility], MR, BRAIN WITHOUT CONTRAST, 04/10/2011, 10:26.? [facility], CT, HEAD WITHOUT CONTRAST, 04/10/2011, 9:38. ? FINDINGS:? Image quality:? Excellent.? ? CSF spaces:? Basal cisterns are patent.? No extra-axial fluid collections.? The ventricles are symmetric in size and shape.? ? Brain:? No intracranial bleeds or masses.? There is cerebral volume loss for age, with resultant ventricular and sulcal prominence.? There are periventricular and deep white matter chronic small vessel ischemic changes.? There is stable focal volume loss seen involving anterior right temporal lobe.? There is intracranial internal carotid artery atherosclerosis.? ? Skull and face:? Right-sided craniotomy change can be seen.? Calvarium and visualized facial bones appear intact, without suspicious lesions.? ? Sinuses:? Visualized sinuses and mastoids are clear.? ? ? IMPRESSION:? No acute intracranial hemorrhage is seen.? ? No acute intracranial process is seen.? ? Focal volume loss seen involving anterior right temporal lobe, with overlying craniotomy change. ECG Data Attestation: I personally reviewed and interpreted this ECG as follows: Interpretation: Sinus rhythm in bigeminy pattern Left axis deviation Incomplete right bundle-branch MDM Narrative Medical decision making narrative: Patient's head CT is unremarkable. Contusion above his left eye he is no specific intervention here in the ER. He does have bilateral lower extremity ulcerations with right being greater than left. I have low suspicion that there is an infection related to this. There were cultures obtained and we will wait for the results of this before we start on any antibiotics. The patient and his at bedside expressed understanding of this. Will have him continue to take all of his medications. We discussed other things he can try at home to try to help with the ulcerations. A referral was placed for wound care. He was given return precautions. He expressed understanding and agreement. Discharge Plan Departure Patient Disposition: Home Clinical Impression: Skin ulcer Instructions: How to Prevent Falls Activity Restrictions/Additional Instructions: A referral was sent to the [facility] here at the hospital. You can contact them at [phone]. We will wait until the cultures result before restart you on any antibiotics. If we do need to start on antibiotics we will contact you. Continue to take the rest of your medications as directed. Return to the emergency department for new or worsening symptoms. Prescriptions: No Action dabigatran etexilate [Pradaxa] 150 mg capsule 150 mg PO BID Qty: 180 3RF levetiracetam 500 mg tablet 500 mg PO BID Qty: 180 3RF (DME) Parking Permit... See Rx Instructions .Route .MEDSUPPLY Qty: 1 0RF Rx Instructions: As directed metoprolol tartrate 25 mg tablet 12.5 mg PO BID Qty: 90 3RF hydroxyzine pamoate [Vistaril] 25 mg capsule 25 mg PO BEDTIME PRN (Reason: itching) triamcinolone acetonide 0.1 % cream 1 applic topical BID PRN furosemide 20 mg tablet 40 mg PO BID Qty: 360 1RF acetaminophen 325 mg Tablet 650 mg PO Q6H Qty: 120 0RF Referrals: Charles Keane MD [Primary Care Provider] - Stand Alone Forms: Patient Portal/API
[2023-04-17 10:52] LABS: Add Manual Diff / Slide Review NO; Basophils Absolute Auto 0 /uL (0-100); Basophils Percent Auto 0.8 % (0-2); Eosinophils Absolute Auto 100 /uL (0-450); Eosinophils Percent Auto 2.3 % (2-4); Hematocrit 41.3 % (41-53); Hemoglobin 13.7 g/dL (13.5-17.5); Lymphocytes Absolute Auto 1000 /uL (1100-4500); Lymphocytes Percent Auto 17.1 % (25-40); Mean Corpuscular HGB Conc 33.1 % (30-36); Mean Corpuscular Hemoglobin 33.3 PG (26-34); Mean Corpuscular Volume 100.4 fL (80-100); Monocytes Absolute Auto 600 /uL (0-900); Monocytes Percent Auto 9.9 % (3-14); Neutrophils Absolute Auto 3900 /uL (1500-7000); Neutrophils Percent Auto 69.9 % (50-75); Platelet Count 189 X10^3/uL (150-400); Red Blood Cell Count 4.11 X10^6/uL (4.5-5.9); Red Cell Distribution Width 14.5 % (11.6-14.8); White Blood Cell Count 5.6 X10^3/uL (4.5-11.0)
[2023-04-17 11:07] LABS: BUN Creatinine Ratio 25.3 (6-22); Blood Urea Nitrogen 25 mg/dL (9-20); Calcium 8.5 mg/dL (8.4-10.2); Carbon Dioxide 35 mmol/L (22-32); Chloride 97 mmol/L (98-107); Estimated Glomerular Filt Rate > 60 mL/min (>60); Glucose 104 mg/dL (80-110); HEMOLYSIS < 15 (0-50); Potassium 4.1 mmol/L (3.4-5.1); Sodium 136 mmol/L (137-145)
--- NOTE | 2023-04-21 15:50 | ED.FALL ---
HPI - Fall General Chief Complaint: Fall Stated Complaint: fell T-6 on blood thinners/weeping on legs Time Seen by Provider: 04/17/23 09:36 Source: patient Mode of arrival: Ambulatory Related Data Home Medications Medication Instructions Recorded Confirmed triamcinolone acetonide 0.1 % 1 applic topical BID PRN 04/09/23 04/23/23 topical cream doxycycline monohydrate 100 mg 100 mg PO BID 04/23/23 04/23/23 capsule Previous Rx's Medication Instructions Recorded dabigatran etexilate 150 mg 150 mg PO BID #180 caps 08/06/22 capsule (Pradaxa) levetiracetam 500 mg tablet 500 mg PO BID #180 tabs 10/24/22 Parking Permit... #1 ea 02/14/23 metoprolol tartrate 25 mg tablet 12.5 mg PO BID #90 tabs 02/28/23 acetaminophen 325 mg tablet 650 mg PO Q6H #120 tabs 03/22/23 furosemide 20 mg tablet 40 mg PO BID #360 tabs 04/09/23 lorazepam 0.5 mg tablet 0.5 mg PO BID PRN anxiety #30 tabs 04/23/23 sertraline 50 mg tablet 50 mg PO DAILY #30 tabs 04/23/23 Allergies Allergy/AdvReac Type Severity Reaction Status Date / Time phenytoin AdvReac Severe Mood swings Verified 04/23/23 10:05 Patient History Medical History (Updated 04/23/23 @ 13:13 by Charles Keane MD) Amblyopia BPH w urinary obs/LUTS Chicken pox (~1955) Chronic anticoagulation Chronic atrial fibrillation Chronic pruritic rash in adult Depression, major, recurrent, moderate Essential hypertension (~1975) Fractures (~1966) Gout (~1980) Hammertoe of right foot History of pulmonary embolism (~2011) Measles (~1957) Mixed hyperlipidemia ENMA (obstructive sleep apnea) Osteoarthritis of right hip Osteopenia Rash Seizure disorder (~2004) Venous (peripheral) insufficiency Surgical History Anesthesia Brain abscess (~2003) History of Achilles tendon repair (~2007) History of hernia repair (~1975) Hx of colonoscopy Hx of craniotomy (2003) Social History household members: spouse Smoking Status: Former smoker alcohol intake: current Smoking Status: Former smoker alcohol intake frequency: 0-2 drinks per day Substance Use Type: marijuana Exam Initial Vital Signs Initial Vital Signs: Vital Signs Temperature 98.6 F 04/17/23 09:23 Pulse Rate 71 04/17/23 09:23 Respiratory Rate 15 04/17/23 09:23 Blood Pressure 121/85 04/17/23 09:23 Pulse Oximetry 100 04/17/23 09:23 Oxygen Delivery Method Room Air 04/17/23 09:23 - Fall Lab Data 04/17/23 10:45 04/17/23 10:45 Labs: Lab Results 04/17/23 04/17/23 Range/Units 10:45 10:45 WBC 5.6 (4.5-11.0) X10^3/uL RBC 4.11 L (4.5-5.9) X10^6/uL Hgb 13.7 (13.5-17.5) g/dL Hct 41.3 (41-53) % MCV 100.4 H (80-100) fL MCH 33.3 (26-34) PG MCHC 33.1 (30-36) % RDW 14.5 (11.6-14.8) % Plt Count 189 (150-400) X10^3/uL Neut % (Auto) 69.9 (50-75) % Lymph % (Auto) 17.1 L (25-40) % Tucker % (Auto) 9.9 (3-14) % Eos % (Auto) 2.3 (2-4) % Baso % (Auto) 0.8 (0-2) % Neut # (Auto) 3900 (0400-5044) /uL Lymph # (Auto) 1000 L (4100-3089) /uL Tucker # (Auto) 600 (0-900) /uL Eos # (Auto) 100 (0-450) /uL Baso # (Auto) 0 (0-100) /uL Sodium 136 L (137-145) mmol/L Potassium 4.1 (3.4-5.1) mmol/L Chloride 97 L (98-107) mmol/L Carbon Dioxide 35 H (22-32) mmol/L BUN 25 H (9-20) mg/dL Creatinine 0.99 (0.66-1.25) mg/dL Estimated GFR > 60 (>60) mL/min BUN/Creatinine Ratio 25.3 H (6-22) Glucose 104 (80-110) mg/dL Calcium 8.5 (8.4-10.2) mg/dL Discharge Plan Departure Patient Disposition: Home Clinical Impression: Skin ulcer Qualifiers: Non-pressure ulcer stage: unspecified non-pressure ulcer stage Qualified Code(s): L98.499 - Non-pressure chronic ulcer of skin of other sites with unspecified severity Instructions: How to Prevent Falls Activity Restrictions/Additional Instructions: A referral was sent to the [facility] here at the hospital. You can contact them at [phone]. We will wait until the cultures result before restart you on any antibiotics. If we do need to start on antibiotics we will contact you. Continue to take the rest of your medications as directed. Return to the emergency department for new or worsening symptoms. Prescriptions: No Action dabigatran etexilate [Pradaxa] 150 mg capsule 150 mg PO BID Qty: 180 3RF levetiracetam 500 mg tablet 500 mg PO BID Qty: 180 3RF (DME) Parking Permit... See Rx Instructions .Route .MEDSUPPLY Qty: 1 0RF Rx Instructions: As directed metoprolol tartrate 25 mg tablet 12.5 mg PO BID Qty: 90 3RF doxycycline monohydrate 100 mg capsule 100 mg PO BID sertraline 50 mg tablet 50 mg PO DAILY Qty: 30 5RF lorazepam 0.5 mg tablet 0.5 mg PO BID PRN (Reason: anxiety) Qty: 30 1RF triamcinolone acetonide 0.1 % cream 1 applic topical BID PRN furosemide 20 mg tablet 40 mg PO BID Qty: 360 1RF acetaminophen 325 mg Tablet 650 mg PO Q6H Qty: 120 0RF Referrals: Charles Keane MD [Primary Care Provider] - Stand Alone Forms: Patient Portal/API
== END 2023-04-17 12:21 | disposition home or self-care (01) ==
PROVIDERS: Emergency Provider Emergency Medicine; Family Provider Internal Medicine; PCP Internal Medicine
DX: L97.929 Non-pressure chronic ulcer of unspecified part of left lower leg with unspecified severity (principal); L97.919 Non-pressure chronic ulcer of unspecified part of right lower leg with unspecified severity; S00.83XA Contusion of other part of head, initial encounter; R21 Rash and other nonspecific skin eruption; Z79.01 Long term (current) use of anticoagulants; W19.XXXA Unspecified fall, initial encounter
CPT/HCPCS: 36415; 70450; 80048; 85025; 87040; 87070; 87075; 87077; 87147; 87186; 87205; 93005; 93010; 99283; 99284

== ENCOUNTER → 2023-04-22 13:56 | Outpatient (CLI) | payer OTHER, SELFPAY ==
[2023-03-21 18:50] VITALS: BMI 21.1
== END ==
PROVIDERS: Family Provider Internal Medicine; PCP Internal Medicine; Referring Provider Internal Medicine; Visit Provider Surgery
DX: I87.2 Venous insufficiency (chronic) (peripheral) (principal); L97.812 Non-pressure chronic ulcer of other part of right lower leg with fat layer exposed; L97.822 Non-pressure chronic ulcer of other part of left lower leg with fat layer exposed
CPT/HCPCS: 11042; 99203; 99213

== ENCOUNTER → 2023-04-23 12:54 | Outpatient (CLI) | payer OTHER, SELFPAY ==
[2023-03-21 18:50] VITALS: BMI 21.1
== END ==
PROVIDERS: Family Provider Internal Medicine; PCP Internal Medicine; Referring Provider Internal Medicine; Visit Provider Surgery
DX: I87.2 Venous insufficiency (chronic) (peripheral) (principal); L97.811 Non-pressure chronic ulcer of other part of right lower leg limited to breakdown of skin; L97.821 Non-pressure chronic ulcer of other part of left lower leg limited to breakdown of skin
CPT/HCPCS: 99213

== ENCOUNTER → 2023-04-28 13:57 | Outpatient (CLI) | payer OTHER, SELFPAY ==
[2023-03-21 18:50] VITALS: BMI 21.1
== END ==
PROVIDERS: Family Provider Internal Medicine; PCP Internal Medicine; Referring Provider Internal Medicine; Visit Provider Surgery
DX: I87.2 Venous insufficiency (chronic) (peripheral) (principal); L97.822 Non-pressure chronic ulcer of other part of left lower leg with fat layer exposed; L97.812 Non-pressure chronic ulcer of other part of right lower leg with fat layer exposed
CPT/HCPCS: 11042

== ENCOUNTER → 2023-05-01 09:32 | Outpatient (CLI) | payer OTHER, SELFPAY ==
[2023-03-21 18:50] VITALS: BMI 21.1
== END ==
PROVIDERS: Family Provider Internal Medicine; PCP Internal Medicine; Referring Provider Internal Medicine; Visit Provider Surgery
DX: I87.2 Venous insufficiency (chronic) (peripheral) (principal); L97.812 Non-pressure chronic ulcer of other part of right lower leg with fat layer exposed; L97.822 Non-pressure chronic ulcer of other part of left lower leg with fat layer exposed
CPT/HCPCS: 29581

== ENCOUNTER → 2023-05-05 13:58 | Outpatient (CLI) | payer OTHER, SELFPAY ==
[2023-03-21 18:50] VITALS: BMI 21.1
== END ==
PROVIDERS: Family Provider Internal Medicine; PCP Internal Medicine; Referring Provider Internal Medicine; Visit Provider Surgery
DX: I87.2 Venous insufficiency (chronic) (peripheral) (principal); L97.812 Non-pressure chronic ulcer of other part of right lower leg with fat layer exposed; L97.822 Non-pressure chronic ulcer of other part of left lower leg with fat layer exposed; A49.02 Methicillin resistant Staphylococcus aureus infection, unspecified site
CPT/HCPCS: 11042

== ENCOUNTER → 2023-05-08 11:34 | Outpatient (CLI) | payer OTHER, SELFPAY ==
[2023-03-21 18:50] VITALS: BMI 21.1
== END ==
PROVIDERS: Family Provider Internal Medicine; PCP Internal Medicine; Referring Provider Internal Medicine; Visit Provider Surgery
DX: I87.313 Chronic venous hypertension (idiopathic) with ulcer of bilateral lower extremity (principal); L97.812 Non-pressure chronic ulcer of other part of right lower leg with fat layer exposed; L97.822 Non-pressure chronic ulcer of other part of left lower leg with fat layer exposed; R60.0 Localized edema
CPT/HCPCS: 99213

== ENCOUNTER → 2023-05-12 12:52 | Outpatient (CLI) | payer OTHER, SELFPAY ==
[2023-03-21 18:50] VITALS: BMI 21.1
== END ==
PROVIDERS: Family Provider Internal Medicine; PCP Internal Medicine; Referring Provider Internal Medicine; Visit Provider Surgery
DX: I87.2 Venous insufficiency (chronic) (peripheral) (principal); L97.822 Non-pressure chronic ulcer of other part of left lower leg with fat layer exposed; L97.812 Non-pressure chronic ulcer of other part of right lower leg with fat layer exposed; A49.02 Methicillin resistant Staphylococcus aureus infection, unspecified site; R60.0 Localized edema
CPT/HCPCS: 11042

== ENCOUNTER → 2023-05-15 15:04 | Outpatient (CLI) | payer OTHER, SELFPAY ==
[2023-03-21 18:50] VITALS: BMI 21.1
== END ==
PROVIDERS: Family Provider Internal Medicine; PCP Internal Medicine; Referring Provider Internal Medicine; Visit Provider Surgery
DX: I87.2 Venous insufficiency (chronic) (peripheral) (principal); L97.812 Non-pressure chronic ulcer of other part of right lower leg with fat layer exposed; L97.822 Non-pressure chronic ulcer of other part of left lower leg with fat layer exposed; R60.0 Localized edema
CPT/HCPCS: 29581; 99213

== ENCOUNTER → 2023-05-20 10:16 | Outpatient (CLI) | payer OTHER, SELFPAY ==
[2023-03-21 18:50] VITALS: BMI 21.1
== END ==
PROVIDERS: Family Provider Internal Medicine; PCP Internal Medicine; Referring Provider Internal Medicine; Visit Provider Surgery
DX: I87.2 Venous insufficiency (chronic) (peripheral) (principal); L97.812 Non-pressure chronic ulcer of other part of right lower leg with fat layer exposed; L03.115 Cellulitis of right lower limb; A49.02 Methicillin resistant Staphylococcus aureus infection, unspecified site
CPT/HCPCS: 11042; 99213

== ENCOUNTER → 2023-05-26 10:53 | Outpatient (CLI) | payer OTHER, SELFPAY ==
[2023-03-21 18:50] VITALS: BMI 21.1
== END ==
PROVIDERS: Family Provider Internal Medicine; PCP Internal Medicine; Referring Provider Internal Medicine; Visit Provider Surgery
DX: I87.2 Venous insufficiency (chronic) (peripheral) (principal); L97.812 Non-pressure chronic ulcer of other part of right lower leg with fat layer exposed; A49.02 Methicillin resistant Staphylococcus aureus infection, unspecified site
CPT/HCPCS: 29581; 99213

== ENCOUNTER 2023-06-01 12:12 | Emergency (ER) | payer OTHER, SELFPAY ==
[2023-03-21 18:50] VITALS: BMI 21.1
[2023-06-01] VITALS (10 sets, daily range): BP systolic 111–164; BP diastolic 83–112; PULSE 48–110; RESP 16–32; TEMP 36.6; O2SAT 89–97; BMI 21.4
--- NOTE | 2023-06-01 12:22 | DI.RAD.S_ITS ---
PROCEDURE: XR CHEST 1V INDICATIONS: chest pain TECHNIQUE: One view of the chest was acquired. COMPARISON: [facility], CR, XR CHEST 2V, 11/12/2018, 12:16. FINDINGS: Surgical changes and devices: None. Lungs and pleura: Moderate bibasilar airspace opacity. Small bilateral pleural effusions. No pneumothorax. Mediastinum: Mediastinal contours appear normal. Heart size is normal. Bones and chest wall: No suspicious bony lesions. Overlying soft tissues appear unremarkable. IMPRESSION: Bibasilar pneumonia with small parapneumonic effusions. Continued plain film surveillance is recommended to ensure resolution, and to exclude underlying or central malignancy. Dictated by: Phong Ward M.D. on 06/01/2023 at 12:51 Approved by: Phong Ward M.D. on 06/01/2023 at 12:52
[2023-06-01 12:52] LABS: Add Manual Diff / Slide Review NO; Basophils Absolute Auto 0 /uL (0-100); Basophils Percent Auto 0.7 % (0-2); Eosinophils Absolute Auto 100 /uL (0-450); Hematocrit 43.2 % (41-53); Hemoglobin 14.5 g/dL (13.5-17.5); Lymphocytes Absolute Auto 1100 /uL (1100-4500); Mean Corpuscular HGB Conc 33.6 % (30-36); Mean Corpuscular Hemoglobin 33.6 PG (26-34); Monocytes Absolute Auto 600 /uL (0-900); Neutrophils Absolute Auto 4400 /uL (1500-7000); Neutrophils Percent Auto 70.3 % (50-75); Platelet Count 171 X10^3/uL (150-400); Red Blood Cell Count 4.32 X10^6/uL (4.5-5.9); Red Cell Distribution Width 14.1 % (11.6-14.8); White Blood Cell Count 6.2 X10^3/uL (4.5-11.0)
[2023-06-01 12:58] LABS: INR 1.5 (0.9-1.3); Prothrombin Time 17.3 SECONDS (10.1-12.7)
--- NOTE | 2023-06-01 12:58 | ED.GENADULT ---
HPI - General Adult General Chief complaint: Shortness of Breath/Dyspnea Stated complaint: SOB, labored breathing Time Seen by Provider: 06/01/23 12:49 Source: patient Mode of arrival: Ambulatory History of Present Illness HPI narrative: 78-year-old male. History of atrial fibrillation. Also has a history of a pulmonary embolism. Is on Pradaxa. Is here for evaluation of 1-2 weeks of worsening orthopnea. No chest pain. He states this feels very similar to when he had a prior pulmonary embolism. He states his symptoms are worse at night when he is lying down and actually feels much better when he is standing up. He is no diagnosis of heart failure. He denies any lower extremity swelling although he does have chronic wounds in his lower extremities and wears compression although he is not having any swelling in his thighs or in his abdomen. He denies fevers or cough or sore throat. Related Data Home Medications Medication Instructions Recorded Confirmed triamcinolone acetonide 0.1 % 1 applic topical BID PRN 04/09/23 05/08/23 topical cream doxycycline monohydrate 100 mg 100 mg PO BID 04/23/23 05/08/23 capsule Previous Rx's Medication Instructions Recorded dabigatran etexilate 150 mg 150 mg PO BID #180 caps 08/06/22 capsule (Pradaxa) levetiracetam 500 mg tablet 500 mg PO BID #180 tabs 10/24/22 Parking Permit... #1 ea 02/14/23 metoprolol tartrate 25 mg tablet 12.5 mg PO BID #90 tabs 02/28/23 acetaminophen 325 mg tablet 650 mg PO Q6H #120 tabs 03/22/23 furosemide 20 mg tablet 40 mg PO BID #360 tabs 04/09/23 lorazepam 0.5 mg tablet 0.5 mg PO BID PRN anxiety #30 tabs 04/23/23 sertraline 50 mg tablet 50 mg PO DAILY #30 tabs 04/23/23 Allergies Allergy/AdvReac Type Severity Reaction Status Date / Time phenytoin AdvReac Severe Mood swings Verified 05/08/23 09:45 Review of Systems Constitutional Constitutional: Reports system reviewed and no additional complaints, except as documented Cardiovascular Cardiovascular: Reports system reviewed and no additional complaints, except as documented Respiratory Respiratory: Reports system reviewed and no additional complaints, except as documented Musculoskeletal Musculoskeletal: Reports system reviewed and no additional complaints, except as documented Integumentary/Breasts Skin/Breast: Reports system reviewed and no additional complaints, except as documented Neurologic Neurologic: Reports system reviewed and no additional complaints, except as documented Hematologic/Lymphatic On Anticoagulants: Yes Patient History Medical History Amblyopia BPH w urinary obs/LUTS Chicken pox (~1955) Chronic anticoagulation Chronic atrial fibrillation Chronic pruritic rash in adult Depression, major, recurrent, moderate Essential hypertension (~1975) Fractures (~1966) Gout (~1980) Hammertoe of right foot History of pulmonary embolism (~2011) Measles (~1957) Mixed hyperlipidemia Obsessive compulsive disorder ENMA (obstructive sleep apnea) Osteoarthritis of right hip Osteopenia Rash Seizure disorder (~2004) Venous (peripheral) insufficiency Surgical History Anesthesia Brain abscess (~2003) History of Achilles tendon repair (~2007) History of hernia repair (~1975) Hx of colonoscopy Hx of craniotomy (2003) Social History household members: spouse Smoking Status: Former smoker alcohol intake: current Smoking Status: Former smoker alcohol intake frequency: 0-2 drinks per day Substance Use Type: marijuana Exam Initial Vital Signs Initial Vital Signs: Vital Signs Temperature 97.8 F 06/01/23 12:14 Pulse Rate 53 L 06/01/23 12:14 Respiratory Rate 16 06/01/23 12:14 Blood Pressure 139/90 06/01/23 12:14 Pulse Oximetry 97 06/01/23 12:14 Oxygen Delivery Method Room Air 06/01/23 12:14 Const General: cooperative and No ill appearing HENMT Head: normal to inspection and normocephalic Resp Effort & Inspection: normal respiratory effort Auscultation: clear to auscultation bilaterally Cardio Rate: regular rate Rhythm: regular rhythm Skin General: no rashes or lesions noted Neuro General: patient alert, patient awake and moves all extremities Cranial Nerves: CN's II-XI intact bilaterally Cognition: normal cognition Extrem General: normal to inspection and capillary refill normal Course Orders Ordered: ED Orders 06/01/23 10:31 COVID19 -Nasal RAPID Stat 06/01/23 12:22 XR chest 1V Stat EKG-12 Lead Stat 06/01/23 12:43 BNP [NT-proBNP (BNP-Adult 18+)] Stat Complete Blood Count AUTO DIFF Stat Comprehensive Metabolic Panel Stat Lipase Stat Magnesium Stat PTT Partial Thromboplastin Dwayne Stat Prothrombin Time INR Stat Troponin & CK Cardiac Panel Stat 06/01/23 13:59 CT angio chest PE protocol Stat Discontinued Medications Furosemide (Furosemide 40 Mg/4 Ml Vial) 40 mg IV NOW ONE Stop: 06/01/23 14:46 Vital Signs Vital signs: Vital Signs - 8 hr 06/01/23 12:14 06/01/23 12:33 06/01/23 12:36 Temperature 97.8 F Pulse Rate 53 L 48 L 104 H Respiratory Rate 16 27 H Blood Pressure 139/90 Pulse Oximetry 97 94 94 Oxygen Delivery Method Room Air 06/01/23 12:36 Temperature Pulse Rate Respiratory Rate Blood Pressure 111/83 Pulse Oximetry Oxygen Delivery Method Medical Decision Making Lab Data Lab results reviewed: Yes I reviewed the patient's lab results. 06/01/23 12:43 06/01/23 12:43 Labs: Lab Results 06/01/23 06/01/23 06/01/23 Range/Units 10:31 12:43 12:43 WBC 6.2 (4.5-11.0) X10^3/uL RBC 4.32 L (4.5-5.9) X10^6/uL Hgb 14.5 (13.5-17.5) g/dL Hct 43.2 (41-53) % MCV 100.0 (80-100) fL MCH 33.6 (26-34) PG MCHC 33.6 (30-36) % RDW 14.1 (11.6-14.8) % Plt Count 171 (150-400) X10^3/uL Neut % (Auto) 70.3 (50-75) % Lymph % (Auto) 18.0 L (25-40) % Cavalier % (Auto) 9.0 (3-14) % Eos % (Auto) 2.0 (2-4) % Baso % (Auto) 0.7 (0-2) % Neut # (Auto) 4400 (7206-1755) /uL Lymph # (Auto) 1100 (6464-1893) /uL Cavalier # (Auto) 600 (0-900) /uL Eos # (Auto) 100 (0-450) /uL Baso # (Auto) 0 (0-100) /uL PT 17.3 H (10.1-12.7) SECONDS INR 1.5 H (0.9-1.3) APTT 51 H (26-36) SECONDS Sodium (137-145) mmol/L Potassium (3.4-5.1) mmol/L Chloride (98-107) mmol/L Carbon Dioxide (22-32) mmol/L BUN (9-20) mg/dL Creatinine (0.66-1.25) mg/dL Estimated GFR (>60) mL/min BUN/Creatinine Ratio (6-22) Glucose (80-110) mg/dL Calcium (8.4-10.2) mg/dL Magnesium (1.6-2.3) mg/dL Total Bilirubin (0.2-1.3) mg/dL AST (17-59) IU/L ALT (<50) IU/L Alkaline Phosphatase (38-126) U/L Total Creatine Kinase (55-170) U/L Troponin I (0.01-0.034) ng/mL NT-Pro-B Natriuret Pep (<450) pg/mL Total Protein (6.3-8.2) g/dL Albumin (3.5-5.0) g/dL Globulin (1.7-4.1) g/dL Albumin/Globulin Ratio (1.0-2.8) Lipase (23-300) U/L SARS-CoV-2 (PCR) Negative (Negative) 06/01/23 Range/Units 12:43 WBC (4.5-11.0) X10^3/uL RBC (4.5-5.9) X10^6/uL Hgb (13.5-17.5) g/dL Hct (41-53) % MCV (80-100) fL MCH (26-34) PG MCHC (30-36) % RDW (11.6-14.8) % Plt Count (150-400) X10^3/uL Neut % (Auto) (50-75) % Lymph % (Auto) (25-40) % Cavalier % (Auto) (3-14) % Eos % (Auto) (2-4) % Baso % (Auto) (0-2) % Neut # (Auto) (6618-2510) /uL Lymph # (Auto) (0976-9066) /uL Cavalier # (Auto) (0-900) /uL Eos # (Auto) (0-450) /uL Baso # (Auto) (0-100) /uL PT (10.1-12.7) SECONDS INR (0.9-1.3) APTT (26-36) SECONDS Sodium 139 (137-145) mmol/L Potassium 3.7 (3.4-5.1) mmol/L Chloride 101 (98-107) mmol/L Carbon Dioxide 27 (22-32) mmol/L BUN 26 H (9-20) mg/dL Creatinine 0.72 (0.66-1.25) mg/dL Estimated GFR > 60 (>60) mL/min BUN/Creatinine Ratio 36.1 H (6-22) Glucose 104 (80-110) mg/dL Calcium 9.2 (8.4-10.2) mg/dL Magnesium 2.1 (1.6-2.3) mg/dL Total Bilirubin 1.6 H (0.2-1.3) mg/dL AST 34 (17-59) IU/L ALT 24 (<50) IU/L Alkaline Phosphatase 123 (38-126) U/L Total Creatine Kinase 65 (55-170) U/L Troponin I 0.110 H (0.01-0.034) ng/mL NT-Pro-B Natriuret Pep 63946 H (<450) pg/mL Total Protein 7.8 (6.3-8.2) g/dL Albumin 4.1 (3.5-5.0) g/dL Globulin 3.7 (1.7-4.1) g/dL Albumin/Globulin Ratio 1.1 (1.0-2.8) Lipase 50 (23-300) U/L SARS-CoV-2 (PCR) (Negative) Imaging Data Chest x-ray: Radiologist's Impression: PROCEDURE:? XR CHEST 1V ? INDICATIONS:? chest pain ? TECHNIQUE:? One view of the chest was acquired.? ? COMPARISON:? [facility], , XR CHEST 2V, 11/12/2018, 12:16. ? FINDINGS:? ? Surgical changes and devices:? None.? ? Lungs and pleura:? Moderate bibasilar airspace opacity.? Small bilateral pleural effusions.? No pneumothorax. ? Mediastinum:? Mediastinal contours appear normal.? Heart size is normal.? ? Bones and chest wall:? No suspicious bony lesions.? Overlying soft tissues appear unremarkable.? ? ? IMPRESSION:? Bibasilar pneumonia with small parapneumonic effusions. Continued plain film surveillance is recommended to ensure resolution, and to exclude underlying or central malignancy.? CT scan - chest: Radiologist's Impression: PROCEDURE:? CT ANGIO CHEST PE PROTOCOL ? INDICATIONS:? Chest pain, shortness of breath, tachycardia ? TECHNIQUE:? After the administration of intravenous contrast, 2 mm thick sections acquired from the pulmonary apices to the posterior costophrenic angles.? 3-dimensional maximum intensity projection (MIP) coronal and sagittal reformats were then acquired through the thorax.? For radiation dose reduction, the following was used:? automated exposure control, adjustment of mA and/or kV according to patient size.? ? COMPARISON:? None. ? FINDINGS:? Image quality:? Excellent.? ? Pulmonary arteries:? Pulmonary arteries are normal in size, and demonstrate no intraluminal filling defects to suggest central pulmonary embolism.? ? Lungs and pleura:? Moderate right and small left pleural effusions.? Moderate bibasilar predominant reticulonodular pulmonary opacity as well as ground-glass pulmonary density.? Central and peripheral airways are patent.? ? Mediastinum:? Heart size is enlarged.? There is calcification of the coronary vasculature.? No mediastinal or hilar adenopathy.? Thoracic aorta is normal in caliber and enhancement.? Esophagus is normal in caliber, without hiatal hernia.? ? Bones and chest wall:? No suspicious bony lesions.? Ribs and thoracic spine appear intact throughout.? Thyroid gland is within normal limits.? No axillary or supraclavicular adenopathy.? ? Abdomen:? Visualized portions of the upper abdomen demonstrate a nodular hepatic contour. ?There is reflux of contrast into the hepatic venous vasculature. ? IMPRESSION:? 1. No pulmonary embolus. 2. Cardiomegaly, coronary artery disease, and right heart failure. 3. Cirrhosis. 4. Atypical pneumonia versus pulmonary edema. 5. Right greater than left pleural effusions.? ECG Data Interpretation: Sinus rhythm with frequent PVCs and bigeminy pattern Ventricular rate 102 Left axis deviation Incomplete right bundle-branch block MDM Narrative Medical decision making narrative: No pulmonary embolism noted on the CT scan although he does have an elevated BNP, his chest x-ray is consistent with pulmonary edema and his presenting symptoms with orthopnea are all consistent with CHF. He is currently on Lasix. He takes 40 mg in the morning. The plan will be for him to double this and take 40 mg in the morning and then 40 mg in the evening. He is no prior history of CHF. There was no indication for antibiotics. No indication for admission to the hospital. He is having bigeminy on the EKG. He has no chest pain. Will have the patient contact his primary doctor tomorrow to discuss the indications for an echocardiogram. He was given strict return precautions. He expressed understanding and agreement. Discharge Plan Departure Patient Disposition: Home Clinical Impression: Orthopnea, Pulmonary edema Instructions: DI for Heart Failure Activity Restrictions/Additional Instructions: I recommend that you continue to take all of your medications as directed however increase your Lasix/furosemide from 40 mg just in the morning to 40 mg in the morning and 40 mg in the evening/afternoon. Recommend that tomorrow you contact your primary doctor for a follow-up. Return to the emergency department for new or worsening symptoms. Prescriptions: No Action dabigatran etexilate [Pradaxa] 150 mg capsule 150 mg PO BID Qty: 180 3RF levetiracetam 500 mg tablet 500 mg PO BID Qty: 180 3RF (DME) Parking Permit... See Rx Instructions .Route .MEDSUPPLY Qty: 1 0RF Rx Instructions: As directed metoprolol tartrate 25 mg tablet 12.5 mg PO BID Qty: 90 3RF doxycycline monohydrate 100 mg capsule 100 mg PO BID sertraline 50 mg tablet 50 mg PO DAILY Qty: 30 5RF lorazepam 0.5 mg tablet 0.5 mg PO BID PRN (Reason: anxiety) Qty: 30 1RF triamcinolone acetonide 0.1 % cream 1 applic topical BID PRN furosemide 20 mg tablet 40 mg PO BID Qty: 360 1RF acetaminophen 325 mg Tablet 650 mg PO Q6H Qty: 120 0RF Referrals: Charles Keane MD [Primary Care Provider] - Stand Alone Forms: Patient Portal/API
[2023-06-01 13:01] LABS: PTT Partial Thromboplastin Tim 51 SECONDS (26-36)
[2023-06-01 13:05] LABS: Alanine Aminotransferase 24 IU/L (<50); Albumin 4.1 g/dL (3.5-5.0); Albumin Globulin Ratio 1.1 (1.0-2.8); Alkaline Phosphatase 123 U/L (38-126); Aspartate Aminotransferase 34 IU/L (17-59); BUN Creatinine Ratio 36.1 (6-22); Bilirubin Total 1.6 mg/dL (0.2-1.3); Blood Urea Nitrogen 26 mg/dL (9-20); Calcium 9.2 mg/dL (8.4-10.2); Carbon Dioxide 27 mmol/L (22-32); Chloride 101 mmol/L (98-107); Creatine Kinase 65 U/L (55-170); Estimated Glomerular Filt Rate > 60 mL/min (>60); Globulin 3.7 g/dL (1.7-4.1); Glucose 104 mg/dL (80-110); HEMOLYSIS < 15 (0-50); Lipase 50 U/L (23-300); Magnesium 2.1 mg/dL (1.6-2.3); Potassium 3.7 mmol/L (3.4-5.1); Sodium 139 mmol/L (137-145); Total Protein 7.8 g/dL (6.3-8.2)
[2023-06-01 13:16] LABS: NT-proBNP (BNP-Adult 18+) 15600 pg/mL (<450)
--- NOTE | 2023-06-01 13:59 | DI.CT.S_ITS ---
PROCEDURE: CT ANGIO CHEST PE PROTOCOL INDICATIONS: Chest pain, shortness of breath, tachycardia TECHNIQUE: After the administration of intravenous contrast, 2 mm thick sections acquired from the pulmonary apices to the posterior costophrenic angles. 3-dimensional maximum intensity projection (MIP) coronal and sagittal reformats were then acquired through the thorax. For radiation dose reduction, the following was used: automated exposure control, adjustment of mA and/or kV according to patient size. COMPARISON: None. FINDINGS: Image quality: Excellent. Pulmonary arteries: Pulmonary arteries are normal in size, and demonstrate no intraluminal filling defects to suggest central pulmonary embolism. Lungs and pleura: Moderate right and small left pleural effusions. Moderate bibasilar predominant reticulonodular pulmonary opacity as well as ground-glass pulmonary density. Central and peripheral airways are patent. Mediastinum: Heart size is enlarged. There is calcification of the coronary vasculature. No mediastinal or hilar adenopathy. Thoracic aorta is normal in caliber and enhancement. Esophagus is normal in caliber, without hiatal hernia. Bones and chest wall: No suspicious bony lesions. Ribs and thoracic spine appear intact throughout. Thyroid gland is within normal limits. No axillary or supraclavicular adenopathy. Abdomen: Visualized portions of the upper abdomen demonstrate a nodular hepatic contour. There is reflux of contrast into the hepatic venous vasculature. IMPRESSION: 1. No pulmonary embolus. 2. Cardiomegaly, coronary artery disease, and right heart failure. 3. Cirrhosis. 4. Atypical pneumonia versus pulmonary edema. 5. Right greater than left pleural effusions. Dictated by: Phong Ward M.D. on 06/01/2023 at 14:18 Approved by: Phong Ward M.D. on 06/01/2023 at 14:20
[2023-06-01 14:00] LABS: COVID19 -Nasal RAPID Negative (Negative)
[2023-06-01] MEDS: FUROSEMIDE 40 MG/4 ML VIAL IV (14:54)
== END 2023-06-01 15:20 | disposition home or self-care (01) ==
PROVIDERS: Emergency Provider Emergency Medicine; Family Provider Internal Medicine; PCP Internal Medicine
DX: R06.01 Orthopnea (principal); J81.1 Chronic pulmonary edema; R07.9 Chest pain, unspecified; Z20.822 Contact with and (suspected) exposure to COVID-19
CPT/HCPCS: 36415; 71045; 71275; 80053; 82550; 83690; 83735; 83880; 84484; 85025; 85610; 85730; 87635; 93005; 96374; 99284; C9803; J1940; Q9967

== ENCOUNTER → 2023-06-02 14:25 | Outpatient (CLI) | payer OTHER, SELFPAY ==
[2023-03-21 18:50] VITALS: BMI 21.1
== END ==
PROVIDERS: Family Provider Internal Medicine; PCP Internal Medicine; Referring Provider Internal Medicine; Visit Provider Surgery
DX: R60.0 Localized edema (principal); I87.2 Venous insufficiency (chronic) (peripheral)
CPT/HCPCS: 99213

== ENCOUNTER → 2023-06-10 10:29 | Outpatient (CLI) | payer OTHER, SELFPAY ==
[2023-03-21 18:50] VITALS: BMI 21.1
[2023-06-10 11:31] LABS: BUN Creatinine Ratio 29.1 (6-22); Blood Urea Nitrogen 23 mg/dL (9-20); Calcium 9.3 mg/dL (8.4-10.2); Carbon Dioxide 32 mmol/L (22-32); Chloride 100 mmol/L (98-107); Estimated Glomerular Filt Rate > 60 mL/min (>60); Glucose 67 mg/dL (80-110); HEMOLYSIS < 15 (0-50); Potassium 3.7 mmol/L (3.4-5.1); Sodium 140 mmol/L (137-145)
== END ==
PROVIDERS: Family Provider Internal Medicine; PCP Internal Medicine; Referring Provider Internal Medicine; Visit Provider Internal Medicine
DX: I50.9 Heart failure, unspecified (principal); J81.1 Chronic pulmonary edema
CPT/HCPCS: 36415; 80048

== ENCOUNTER 2023-06-23 13:45 | Outpatient (RCR) | payer OTHER, SELFPAY ==
[2023-03-21 18:50] VITALS: BMI 21.1
--- NOTE | 2023-04-28 14:00 | PT.OIE ---
Current Diagnoses Unilateral primary osteoarthritis, right hip (04/30/23) Weakness (04/30/23) Presence of right artificial hip joint (04/30/23) Past Medical History (Last Updated 04/23/23 @ 11:17 by Charles Keane MD) Amblyopia BPH w urinary obs/LUTS Chicken pox (~1955) Chronic anticoagulation Chronic atrial fibrillation Chronic pruritic rash in adult Depression, major, recurrent, moderate Essential hypertension (~1975) Fractures (~1966) Gout (~1980) Hammertoe of right foot History of pulmonary embolism (~2011) Measles (~1957) Mixed hyperlipidemia ENMA (obstructive sleep apnea) Osteoarthritis of right hip Osteopenia Rash Seizure disorder (~2004) Venous (peripheral) insufficiency Past Surgical History (Last Reviewed 04/23/23 @ 06:34 by Charles Keane MD) Anesthesia Brain abscess (~2003) History of Achilles tendon repair (~2007) History of hernia repair (~1975) Hx of colonoscopy Hx of craniotomy (2003) Visit Care Team Role Provider Type Charles Keane MD Attending Provider Physician Family Provider Primary Care Provider Referring Provider Specialty: Internal Medicine Address: [address] [place] [address] Email: [email or web address] Physical Therapy Initial Evaluation PT-OP-A Visit Information Start: 04/28/23 12:54 Freq: Status: Active Protocol: Document 04/28/23 12:55 AB (Rec: 04/28/23 15:12 AB [id number]) Out-Patient Physical Therapy Visit Information Visit Information Visit Type Initial Evaluation Visit Start Time 13:00 Visit Stop Time 13:45 Total Visit Minutes 45 Visit Number 1 Number of FILM WRITER Visits 0 Evaluation Information Evaluation Date 04/28/23 Precautions Precautions R YAZMIN anterior approach performed on 03/21/2023 Medical hx (see EMR for additional info): MDD, osteopenia, seizure disorder, HTN, gout, hyperlipidemia, hx of PE, chronic Afib, chronic anticoagulation PT-OP-B Current Condition Start: 04/28/23 12:54 Freq: Status: Active Protocol: Document 04/28/23 12:55 AB (Rec: 04/28/23 15:12 AB [id number]) Current Condition History of Current Condition Onset Date 03/21/23 History of Current Condition Pt underwent R YAZMIN (anterior approach) on 03/21/23. He was then discharged to SNF due to deficits, he also recieved a PT eval however it was determined outpatient PT. Currently he no longer has any hip pain but he reports feeling week and unbalanced, especially when walking. He has some difficulty ascending and descending stairs, in order to get to his room. THe pt denies having any pain symptoms currently, but reports he feels stiff in the mornings. Prior Treatments and Tests R YAZMIN SNF for 10 days post surgery Prior Functional Status Baseline Function- ADL's Independent Baseline Function- Mobility Independent Baseline Function- Gait Started to use SPC about 1 month before surgery due to pain and imbalance Baseline Function- Work/School Retired Baseline Function- Recreation/Hobbies Walking on trails Current Functional Impairments (Reported) Functional Limitations- ADL's IND with all ADLs Functional Limitations- Mobility/Gait Uses SPC for ambulation of household and community distances Functional Limitations- Work/School N/A Functional Limitations- Recreation/ Not able to participate in Hobbies recreational activities such as walking on trails Functional Limitations- Other Ascends/descends stairs (14 steps inside house; 3 KENIA house) with step to step pattern using both HRs inside and outside PT-OP-C Subjective Start: 04/28/23 12:54 Freq: Status: Active Protocol: Document 04/28/23 12:55 AB (Rec: 04/28/23 15:12 AB [id number]) OP-PT Subjective Patient Comments Patient Comments See hx of current condition Patient Reported Progress Improving Patient Questionnaires Lower Extremity Functional Scale LEFS Score 36/80 LEFS Impairment 40 to 59% Impaired (Score 32- 47) PT-OP-D Balance Start: 04/28/23 12:54 Freq: Status: Active Protocol: Document 04/28/23 12:55 AB (Rec: 04/28/23 15:12 AB [id number]) Balance Tests Single Limb Standing Single Limb- Right Unable to perform Single Limb- Left Unable to perform PT-OP-E Functional Tests Start: 04/28/23 12:54 Freq: Status: Active Protocol: Document 04/28/23 12:55 AB (Rec: 04/28/23 15:12 AB [id number]) Functional Tests 30 Second Sit to Stand Test Score 11 Comments did not use UEs, however used back of legs on plinth to stabilize Timed Up and Go (TUG) Score 14.85 sec Comments With SPC, mild LOB with turn but able to recover IND PT-OP-G Mobility & Gait Start: 04/28/23 12:54 Freq: Status: Active Protocol: Document 04/28/23 12:55 AB (Rec: 04/28/23 15:12 AB [id number]) OP Gait Assessment Assistive Devices Assistive Device Straight Cane Gait Deviations General Gait Pattern Antalgic,Decreased Feet Clearance Factors Limiting Gait Function Factors Limiting Gait Function Decreased Strength,Limited Range of Motion,Poor Balance Comments Gait Comments toe-out of LLE, decreased terminal knee extension in stance phase bilaterally, instability noted with increased speed and when turning and stopping PT-OP-K Range of Motion Start: 04/28/23 12:54 Freq: Status: Active Protocol: Document 04/28/23 12:55 AB (Rec: 04/28/23 15:12 AB [id number]) Hip Goniometric Range of Motion Hip Right Active Hip ROM WFL No Testing Position Sitting Flexion w/Knee Flexed 93 Extension 0 Internal Rotation 20 External Rotation 15 Comments flexion in supine; ABD not tested due to time constraints Left Active Testing Position Supine Flexion w/Knee Flexed 111 Extension 0 Internal Rotation 25 External Rotation 25 Comments flexion in supine; ABD not tested due to time constraints PT-OP-M Strength Start: 04/28/23 12:54 Freq: Status: Active Protocol: Document 04/28/23 12:55 AB (Rec: 04/28/23 15:12 AB [id number]) Hip Strength Hip Manual Muscle Testing Right Flexion (L2) 4- Good- Abduction 3+ Fair+ Adduction 4- Good- External Rotation 3+ Fair+ Internal Rotation 3+ Fair+ Comments Denies pain Left Flexion (L2) 5 Normal Abduction 4- Good- Adduction 4- Good- External Rotation 4 Good Internal Rotation 4 Good Comments Denies pain Knee Strength Knee Manual Muscle Testing Left Flexion (S2) 5 Normal Extension (L3) 5 Normal Right Flexion (S2) 4 Good Extension (L3) 4+ Good+ PT-OP-Q Treatments Start: 04/28/23 12:54 Freq: Status: Active Protocol: Document 04/28/23 12:55 AB (Rec: 04/28/23 15:12 AB [id number]) Self-Care/Home Management Treatment Education Patient Education Fall Risk,Safety PT-OP-T Assessment and Plan Start: 04/28/23 12:54 Freq: Status: Active Protocol: Document 04/28/23 12:55 AB (Rec: 04/28/23 15:12 AB [id number]) Physical Therapy Assessment Rehab Potential Rehabilitation Potential Good Evaluation Complexity Number of Personal Factors/Comorbidities 3 or More Number of Body Systems Impaired 1-2 Clinical Presentation at Evaluation Stable Impairments Impairments Balance,Functional Mobility, Gait,ROM,Strength Other Concerns Fall Risk Increased fall risk based on 30sec STS and TUG scores Goals Five Impairment LEFS score Short Term Goal (STG) Pt's LEFS score to improve to 46/80 or better to show improving symptoms, level of function and QOL. STG Duration 4 Porcelain Waxer Goal (LTG) Pt's LEFS score to improve to 56/80 or better to show improving symptoms, level of function and QOL. LTG Duration 8 Four Impairment TUG time Short Term Goal (STG) Pt to perform TUG in 13 seconds or better with SPC without LOB to show decreasing risk for falls. STG Duration 4 Porcelain Waxer Goal (LTG) Pt to perform TUG in 12 seconds or better with SPC without LOB to show decreased risk for falls. LTG Duration 8 Three Impairment 30 sec STS score Short Term Goal (STG) Pt to perform 11 STS in 30 seconds without use of compensatory stratetgies to maintain his balance and through full ROM to show decreasing risk for falls. STG Duration 4 Usp Goal (LTG) Pt to perform 12 STS in 30 seconds without use of compensatory stratetgies to maintain his balance and through full ROM to show decreased risk for falls. LTG Duration 8 Two Impairment Hip AROM deficits Short Term Goal (STG) Pt's hip ER and IR AROM to improve to 25 degrees or better to improve ability to perform ADLs, IADLs and functional mobility, and to improve his gait mechanics. STG Duration 4 Usp Goal (LTG) Pt's hip ER and IR AROM to improve to 30 degrees or better to improve ability to perform ADLs, IADLs and functional mobility, and to improve his gait mechanics. LTG Duration 8 One Impairment Hip AROM deficits Short Term Goal (STG) Pt's hip flexion AROM to improve to 100 degrees or better to improve ability to perform ADLs, IADLs and functional mobility, and to improve his gait mechanics. STG Duration 4 Porcelain Waxer Goal (LTG) Pt's hip flexion AROM to improve to 115 degrees or better to improve ability to perform ADLs, IADLs and functional mobility, and to improve his gait mechanics. LTG Duration 8 Assessment Summary Assessment Marvel Parekh is a 78 year old male patient presenting to outpatient PT s/ p R YAZMIN performed on 03/21/23. Today's PT examination revealed deficits consistent with this surgical procedure including LE AROM deficits, LE weakness, gait impairements and balance deficits, all of which are increasing the pt's risk for falls and decreasing his ability to perform functional and recreational activities. Based on these findings, the pt would greatly benefit from skilled PT to improve these deficits in order to improve his level of function and reduce his risk for falls. Physical Therapy Plan Frequency and Duration Frequency of Treatment 2x/Week Duration of treatment (weeks) 8 Plan of Care Start Date 04/28/23 Plan of Care End Date 06/23/23 Therapeutic Interventions Therapeutic Interventions Balance Training,Gait Training ,Home Exercise Program,Manual Therapy,Neuromuscular Re- education,Patient/Caregiver Education,Self-Care/Home Management,Soft Tissue Mobilization,Taping, Therapeutic Activities, Therapeutic Exercises Modalities Cold Pack/Ice Massage,Electric Stimulation,Hot Packs Next Visit Focus/Plan Next Note Type Treatment Note Next Visit Plan Add HEP including LE strengthening and balance exercises.
--- NOTE | 2023-04-28 15:15 | PT.OPPOC ---
Physical, Occupational & Speech Therapy At [facility] Current Diagnoses Unilateral primary osteoarthritis, right hip (04/28/23) Weakness (04/28/23) Presence of right artificial hip joint (04/28/23) Visit Care Team Role Provider Type Charles Keane MD Attending Provider Physician Family Provider Primary Care Provider Referring Provider Specialty: Internal Medicine Address: [address] [place] [address], [facility] Email: [email or web address] Plan Of Care PT-OP-T Assessment and Plan Start: 04/28/23 12:54 Freq: Status: Active Protocol: Document 04/28/23 12:55 AB (Rec: 04/28/23 15:12 AB [id number]) Physical Therapy Assessment Rehab Potential Rehabilitation Potential Good Evaluation Complexity Number of Personal Factors/Comorbidities 3 or More Number of Body Systems Impaired 1-2 Clinical Presentation at Evaluation Stable Impairments Impairments Balance,Functional Mobility, Gait,ROM,Strength Other Concerns Fall Risk Increased fall risk based on 30sec STS and TUG scores Goals Five Impairment LEFS score Short Term Goal (STG) Pt's LEFS score to improve to 46/80 or better to show improving symptoms, level of function and QOL. STG Duration 4 [facility] Goal (LTG) Pt's LEFS score to improve to 56/80 or better to show improving symptoms, level of function and QOL. LTG Duration 8 Four Impairment TUG time Short Term Goal (STG) Pt to perform TUG in 13 seconds or better with SPC without LOB to show decreasing risk for falls. STG Duration 4 Foundry Finisher Goal (LTG) Pt to perform TUG in 12 seconds or better with SPC without LOB to show decreased risk for falls. LTG Duration 8 Three Impairment 30 sec STS score Short Term Goal (STG) Pt to perform 11 STS in 30 seconds without use of compensatory stratetgies to maintain his balance and through full ROM to show decreasing risk for falls. STG Duration 4 Foundry Finisher Goal (LTG) Pt to perform 12 STS in 30 seconds without use of compensatory stratetgies to maintain his balance and through full ROM to show decreased risk for falls. LTG Duration 8 Two Impairment Hip AROM deficits Short Term Goal (STG) Pt's hip ER and IR AROM to improve to 25 degrees or better to improve ability to perform ADLs, IADLs and functional mobility, and to improve his gait mechanics. STG Duration 4 [facility] Goal (LTG) Pt's hip ER and IR AROM to improve to 30 degrees or better to improve ability to perform ADLs, IADLs and functional mobility, and to improve his gait mechanics. LTG Duration 8 One Impairment Hip AROM deficits Short Term Goal (STG) Pt's hip flexion AROM to improve to 100 degrees or better to improve ability to perform ADLs, IADLs and functional mobility, and to improve his gait mechanics. STG Duration 4 [facility] Goal (LTG) Pt's hip flexion AROM to improve to 115 degrees or better to improve ability to perform ADLs, IADLs and functional mobility, and to improve his gait mechanics. LTG Duration 8 Assessment Summary Assessment Marvel Parekh is a 78 year old male patient presenting to outpatient PT s/ p R YAZMIN performed on 03/21/23. Today's PT examination revealed deficits consistent with this surgical procedure including LE AROM deficits, LE weakness, gait impairements and balance deficits, all of which are increasing the pt's risk for falls and decreasing his ability to perform functional and recreational activities. Based on these findings, the pt would greatly benefit from skilled PT to improve these deficits in order to improve his level of function and reduce his risk for falls. Physical Therapy Plan Frequency and Duration Frequency of Treatment 2x/Week Duration of treatment (weeks) 8 Plan of Care Start Date 04/28/23 Plan of Care End Date 06/23/23 Therapeutic Interventions Therapeutic Interventions Balance Training,Gait Training ,Home Exercise Program,Manual Therapy,Neuromuscular Re- education,Patient/Caregiver Education,Self-Care/Home Management,Soft Tissue Mobilization,Taping, Therapeutic Activities, Therapeutic Exercises Modalities Cold Pack/Ice Massage,Electric Stimulation,Hot Packs Next Visit Focus/Plan Next Note Type Treatment Note Next Visit Plan Add HEP including LE strengthening and balance exercises. Plan of Care Dates Plan of Care Start Date 04/28/23 Plan of Care End Date 06/23/23 Electronically Signed by: Thai Smith, PT 04/28/23 [id number] If you are in agreement with this Plan of Care, please return a signed and dated copy. I have reviewed this Plan of Care and certify that the skilled therapy services above are required to meet the patient?s needs. Physician Signature Date Printed Name and Credentials Clinical Instructor Signature Printed Name and Credentials
--- NOTE | 2023-04-30 14:54 | PT.OTN ---
Current Diagnoses Unilateral primary osteoarthritis, right hip (04/30/23) Weakness (04/30/23) Presence of right artificial hip joint (04/30/23) Physical Therapy Treatment Note PT-OP-A Visit Information Start: 04/28/23 12:54 Freq: Status: Active Protocol: Document 04/30/23 14:34 AB (Rec: 04/30/23 14:54 AB [id number]) Out-Patient Physical Therapy Visit Information Visit Information Visit Type Treatment Note Visit Start Time 11:00 Visit Stop Time 11:45 Total Visit Minutes 45 Visit Number 2 Number of STRATEGY ANALYST Visits 0 PT-OP-B Current Condition Start: 04/28/23 12:54 Freq: Status: Active Protocol: Document 04/28/23 12:55 AB (Rec: 04/28/23 15:12 AB [id number]) Current Condition History of Current Condition Onset Date 03/21/23 History of Current Condition Pt underwent R YAZMIN (anterior approach) on 03/21/23. He was then discharged to SNF due to deficits, he also recieved a PT eval however it was determined outpatient PT. Currently he no longer has any hip pain but he reports feeling week and unbalanced, especially when walking. He has some difficulty ascending and descending stairs, in order to get to his room. THe pt denies having any pain symptoms currently, but reports he feels stiff in the mornings. Prior Treatments and Tests R YAZ[facility] for 10 days post surgery Prior Functional Status Baseline Function- ADL's Independent Baseline Function- Mobility Independent Baseline Function- Gait Started to use SPC about 1 month before surgery due to pain and imbalance Baseline Function- Work/School Retired Baseline Function- Recreation/Hobbies Walking on trails Current Functional Impairments (Reported) Functional Limitations- ADL's IND with all ADLs Functional Limitations- Mobility/Gait Uses SPC for ambulation of household and community distances Functional Limitations- Work/School N/A Functional Limitations- Recreation/ Not able to participate in Hobbies recreational activities such as walking on trails Functional Limitations- Other Ascends/descends stairs (14 steps inside house; 3 [place] house) with step to step pattern using both HRs inside and outside PT-OP-C Subjective Start: 04/28/23 12:54 Freq: Status: Active Protocol: Document 04/30/23 14:34 AB (Rec: 04/30/23 14:54 AB [id number]) OP-PT Subjective Patient Comments Patient Comments Pt reports he is doing well and denies any complaints. He has his post op follow up later today. Patient Reported Progress Same PT-OP-D Balance Start: 04/28/23 12:54 Freq: Status: Active Protocol: Document 04/28/23 12:55 AB (Rec: 04/28/23 15:12 AB [id number]) Balance Tests Single Limb Standing Single Limb- Right Unable to perform Single Limb- Left Unable to perform PT-OP-E Functional Tests Start: 04/28/23 12:54 Freq: Status: Active Protocol: Document 04/28/23 12:55 AB (Rec: 04/28/23 15:12 AB [id number]) Functional Tests 30 Second Sit to Stand Test Score 11 Comments did not use UEs, however used back of legs on plinth to stabilize Timed Up and Go (TUG) Score 14.85 sec Comments With SPC, mild LOB with turn but able to recover IND PT-OP-G Mobility & Gait Start: 04/28/23 12:54 Freq: Status: Active Protocol: Document 04/28/23 12:55 AB (Rec: 04/28/23 15:12 AB [id number]) OP Gait Assessment Assistive Devices Assistive Device Straight Cane Gait Deviations General Gait Pattern Antalgic,Decreased Feet Clearance Factors Limiting Gait Function Factors Limiting Gait Function Decreased Strength,Limited Range of Motion,Poor Balance Comments Gait Comments toe-out of LLE, decreased terminal knee extension in stance phase bilaterally, instability noted with increased speed and when turning and stopping PT-OP-K Range of Motion Start: 04/28/23 12:54 Freq: Status: Active Protocol: Document 04/28/23 12:55 AB (Rec: 04/28/23 15:12 AB [id number]) Hip Goniometric Range of Motion Hip Right Active Hip ROM WFL No Testing Position Sitting Flexion w/Knee Flexed 93 Extension 0 Internal Rotation 20 External Rotation 15 Comments flexion in supine; ABD not tested due to time constraints Left Active Testing Position Supine Flexion w/Knee Flexed 111 Extension 0 Internal Rotation 25 External Rotation 25 Comments flexion in supine; ABD not tested due to time constraints PT-OP-M Strength Start: 04/28/23 12:54 Freq: Status: Active Protocol: Document 04/28/23 12:55 AB (Rec: 04/28/23 15:12 AB [id number]) Hip Strength Hip Manual Muscle Testing Right Flexion (L2) 4- Good- Abduction 3+ Fair+ Adduction 4- Good- External Rotation 3+ Fair+ Internal Rotation 3+ Fair+ Comments Denies pain Left Flexion (L2) 5 Normal Abduction 4- Good- Adduction 4- Good- External Rotation 4 Good Internal Rotation 4 Good Comments Denies pain Knee Strength Knee Manual Muscle Testing Left Flexion (S2) 5 Normal Extension (L3) 5 Normal Right Flexion (S2) 4 Good Extension (L3) 4+ Good+ PT-OP-Q Treatments Start: 04/28/23 12:54 Freq: Status: Active Protocol: Document 04/30/23 14:34 AB (Rec: 04/30/23 14:54 AB [id number]) Cardio Equipment Recumbent Elliptical ([employer]) Duration (Minutes) 5 Resistance 0 Therapeutic Exercises Standing Exercises 5 Standing Exercise Name SLR Side bilateral Reps/Minutes 2x10 4 Standing Exercise Name Hip ext Side bilateral Reps/Minutes 2x10 Comments ea 3 Standing Exercise Name Hip ABD Side bilateral Reps/Minutes 2x10 ea 2 Standing Exercise Name Mini squats Reps/Minutes 2x8 Comments Requires UE support 1 Standing Exercise Name STS Reps/Minutes 2x5 Comments Pt required 1 UE for last few STS of last set PT-OP-T Assessment and Plan Start: 04/28/23 12:54 Freq: Status: Active Protocol: Document 04/30/23 14:34 AB (Rec: 04/30/23 14:54 AB [id number]) Physical Therapy Assessment Assessment Summary Assessment The focus of today's session was on establishing an appropriate updated HEP. Based on his current level of function, most of these exercises were performed in standing in order to improve LE strength but also balance and stability of stance leg. The pt had fair tolerance, though he required seated rest breaks between sets and exercises due to fatigue. He requires UE support for these exercises due to strength and stability deficits. Therefore, addition of static and dynamic balance exercises should be added next visit. Physical Therapy Plan Next Visit Focus/Plan Next Note Type Treatment Note Next Visit Plan Add static and dynamic balance exercises, as well as LE strength exercises.
--- NOTE | 2023-05-05 14:23 | PT.OTN ---
Current Diagnoses Unilateral primary osteoarthritis, right hip (05/05/23) Weakness (05/05/23) Presence of right artificial hip joint (05/05/23) Physical Therapy Treatment Note PT-OP-A Visit Information Start: 04/28/23 12:54 Freq: Status: Active Protocol: Document 05/05/23 13:36 AB (Rec: 05/05/23 14:18 AB [id number]) Out-Patient Physical Therapy Visit Information Visit Information Visit Type Treatment Note Visit Start Time 13:00 Visit Stop Time 13:45 Total Visit Minutes 45 Visit Number 3 Number of PRESS SET UP Visits 0 PT-OP-B Current Condition Start: 04/28/23 12:54 Freq: Status: Active Protocol: Document 04/28/23 12:55 AB (Rec: 04/28/23 15:12 AB [id number]) Current Condition History of Current Condition Onset Date 03/21/23 History of Current Condition Pt underwent R YAZMIN (anterior approach) on 03/21/23. He was then discharged to SNF due to deficits, he also recieved a PT eval however it was determined outpatient PT. Currently he no longer has any hip pain but he reports feeling week and unbalanced, especially when walking. He has some difficulty ascending and descending stairs, in order to get to his room. THe pt denies having any pain symptoms currently, but reports he feels stiff in the mornings. Prior Treatments and Tests R YAZMIN [facility] for 10 days post surgery Prior Functional Status Baseline Function- ADL's Independent Baseline Function- Mobility Independent Baseline Function- Gait Started to use SPC about 1 month before surgery due to pain and imbalance Baseline Function- Work/School Retired Baseline Function- Recreation/Hobbies Walking on trails Current Functional Impairments (Reported) Functional Limitations- ADL's IND with all ADLs Functional Limitations- Mobility/Gait Uses SPC for ambulation of household and community distances Functional Limitations- Work/School N/A Functional Limitations- Recreation/ Not able to participate in Hobbies recreational activities such as walking on trails Functional Limitations- Other Ascends/descends stairs (14 steps inside house; 3 [place] house) with step to step pattern using both HRs inside and outside PT-OP-C Subjective Start: 04/28/23 12:54 Freq: Status: Active Protocol: Document 05/05/23 13:36 AB (Rec: 05/05/23 14:18 AB [id number]) OP-PT Subjective Patient Comments Patient Comments Pt reports he has sore after last session, and that STS HEP exercise made him very sore the next day. Otherwise he feels like he is getting a little stronger and more stable on his feet. Patient Reported Progress Improving PT-OP-D Balance Start: 04/28/23 12:54 Freq: Status: Active Protocol: Document 04/28/23 12:55 AB (Rec: 04/28/23 15:12 AB [id number]) Balance Tests Single Limb Standing Single Limb- Right Unable to perform Single Limb- Left Unable to perform PT-OP-E Functional Tests Start: 04/28/23 12:54 Freq: Status: Active Protocol: Document 04/28/23 12:55 AB (Rec: 04/28/23 15:12 AB [id number]) Functional Tests 30 Second Sit to Stand Test Score 11 Comments did not use UEs, however used back of legs on plinth to stabilize Timed Up and Go (TUG) Score 14.85 sec Comments With SPC, mild LOB with turn but able to recover IND PT-OP-G Mobility & Gait Start: 04/28/23 12:54 Freq: Status: Active Protocol: Document 04/28/23 12:55 AB (Rec: 04/28/23 15:12 AB [id number]) OP Gait Assessment Assistive Devices Assistive Device Straight Cane Gait Deviations General Gait Pattern Antalgic,Decreased Feet Clearance Factors Limiting Gait Function Factors Limiting Gait Function Decreased Strength,Limited Range of Motion,Poor Balance Comments Gait Comments toe-out of LLE, decreased terminal knee extension in stance phase bilaterally, instability noted with increased speed and when turning and stopping PT-OP-K Range of Motion Start: 04/28/23 12:54 Freq: Status: Active Protocol: Document 04/28/23 12:55 AB (Rec: 04/28/23 15:12 AB [id number]) Hip Goniometric Range of Motion Hip Right Active Hip ROM WFL No Testing Position Sitting Flexion w/Knee Flexed 93 Extension 0 Internal Rotation 20 External Rotation 15 Comments flexion in supine; ABD not tested due to time constraints Left Active Testing Position Supine Flexion w/Knee Flexed 111 Extension 0 Internal Rotation 25 External Rotation 25 Comments flexion in supine; ABD not tested due to time constraints PT-OP-M Strength Start: 04/28/23 12:54 Freq: Status: Active Protocol: Document 04/28/23 12:55 AB (Rec: 04/28/23 15:12 AB [id number]) Hip Strength Hip Manual Muscle Testing Right Flexion (L2) 4- Good- Abduction 3+ Fair+ Adduction 4- Good- External Rotation 3+ Fair+ Internal Rotation 3+ Fair+ Comments Denies pain Left Flexion (L2) 5 Normal Abduction 4- Good- Adduction 4- Good- External Rotation 4 Good Internal Rotation 4 Good Comments Denies pain Knee Strength Knee Manual Muscle Testing Left Flexion (S2) 5 Normal Extension (L3) 5 Normal Right Flexion (S2) 4 Good Extension (L3) 4+ Good+ PT-OP-Q Treatments Start: 04/28/23 12:54 Freq: Status: Active Protocol: Document 05/05/23 13:36 AB (Rec: 05/05/23 14:18 AB [id number]) Cardio Equipment Recumbent Elliptical ([employer]) Duration (Minutes) 5 Therapeutic Exercises Standing Exercises 2 Standing Exercise Name Step ups Equipment Used 6 step with bilat rails Reps/Minutes 2x5 ea 1 Standing Exercise Name STS Reps/Minutes 1x8 Comments With BUE support Gait Training Gait Activity 2 Description Stepping over obstacles Device Used SPC x 2 laps, no AD x 2 laps Level of Assistance CGA Surface even Distance/Duration three 2 block, 10 ft Treatment Focus navigating obstacles; stability with ambulation 1 Description Gait with cone weaving Device Used SPC x 2 laps, no AD x 2 laps Level of Assistance CGA Surface even Distance/Duration 5 cones, 10ft Treatment Focus navigating obstacles; stability while ambulating PT-OP-T Assessment and Plan Start: 04/28/23 12:54 Freq: Status: Active Protocol: Document 05/05/23 13:36 AB (Rec: 05/05/23 14:18 AB [id number]) Physical Therapy Assessment Assessment Summary Assessment Due to reports of difficulty performing STS for HEP, this exercise was reviewed and modified by using bilateral UEs for support. The focus of today's session was on improving stability when ambulating and gait stability. When performing gait around obstacles using SPC, the pt has one instance of LOB which he was able to independently recover from. However, when ambulating without SPC, the pt appeared to be more stable and did not have any instances of LOB. This is possibly due to the pt relying heavily on SPC for stability and leaning into it. The pt was educated on attempting to ambulate around his house without SPC, using his discretion as necessary, to begin to wean off of using SPC. The pt continues to benefit from therex, neuromuscular re-ed exercises, and gait training to improve his deficits. Physical Therapy Plan Next Visit Focus/Plan Next Note Type Treatment Note Next Visit Plan Add static and dynamic standing balance exercises as able.
--- NOTE | 2023-05-08 15:31 | PT.OTN ---
Current Diagnoses Unilateral primary osteoarthritis, right hip (05/08/23) Weakness (05/08/23) Presence of right artificial hip joint (05/08/23) Physical Therapy Treatment Note PT-OP-A Visit Information Start: 04/28/23 12:54 Freq: Status: Active Protocol: Document 05/08/23 13:00 SW (Rec: 05/08/23 13:45 SW [id number]) Out-Patient Physical Therapy Visit Information Visit Information Visit Type Treatment Note Visit Start Time 13:00 Visit Stop Time 13:42 Total Visit Minutes 42 Visit Number 4 Number of DELIVERY REP Visits 1 Precautions Precautions R YAZMIN anterior approach performed on 03/21/2023 Medical hx (see EMR for additional info): MDD, osteopenia, seizure disorder, HTN, gout, hyperlipidemia, hx of PE, chronic Afib, chronic anticoagulation PT-OP-B Current Condition Start: 04/28/23 12:54 Freq: Status: Active Protocol: Document 04/28/23 12:55 AB (Rec: 04/28/23 15:12 AB [id number]) Current Condition History of Current Condition Onset Date 03/21/23 History of Current Condition Pt underwent R YAZMIN (anterior approach) on 03/21/23. He was then discharged to SNF due to deficits, he also recieved a PT eval however it was determined outpatient PT. Currently he no longer has any hip pain but he reports feeling week and unbalanced, especially when walking. He has some difficulty ascending and descending stairs, in order to get to his room. THe pt denies having any pain symptoms currently, but reports he feels stiff in the mornings. Prior Treatments and Tests R YAZMIN [facility] for 10 days post surgery Prior Functional Status Baseline Function- ADL's Independent Baseline Function- Mobility Independent Baseline Function- Gait Started to use SPC about 1 month before surgery due to pain and imbalance Baseline Function- Work/School Retired Baseline Function- Recreation/Hobbies Walking on trails Current Functional Impairments (Reported) Functional Limitations- ADL's IND with all ADLs Functional Limitations- Mobility/Gait Uses SPC for ambulation of household and community distances Functional Limitations- Work/School N/A Functional Limitations- Recreation/ Not able to participate in Hobbies recreational activities such as walking on trails Functional Limitations- Other Ascends/descends stairs (14 steps inside house; 3 [place] house) with step to step pattern using both HRs inside and outside PT-OP-C Subjective Start: 04/28/23 12:54 Freq: Status: Active Protocol: Document 05/08/23 13:00 SW (Rec: 05/08/23 13:45 SW [id number]) OP-PT Subjective Patient Comments Patient Comments Pt reports he has been doing good. He has only been using cane in rough terrain. PT-OP-D Balance Start: 04/28/23 12:54 Freq: Status: Active Protocol: Document 04/28/23 12:55 AB (Rec: 04/28/23 15:12 AB [id number]) Balance Tests Single Limb Standing Single Limb- Right Unable to perform Single Limb- Left Unable to perform PT-OP-E Functional Tests Start: 04/28/23 12:54 Freq: Status: Active Protocol: Document 04/28/23 12:55 AB (Rec: 04/28/23 15:12 AB [id number]) Functional Tests 30 Second Sit to Stand Test Score 11 Comments did not use UEs, however used back of legs on plinth to stabilize Timed Up and Go (TUG) Score 14.85 sec Comments With SPC, mild LOB with turn but able to recover IND PT-OP-G Mobility & Gait Start: 04/28/23 12:54 Freq: Status: Active Protocol: Document 04/28/23 12:55 AB (Rec: 04/28/23 15:12 AB [id number]) OP Gait Assessment Assistive Devices Assistive Device Straight Cane Gait Deviations General Gait Pattern Antalgic,Decreased Feet Clearance Factors Limiting Gait Function Factors Limiting Gait Function Decreased Strength,Limited Range of Motion,Poor Balance Comments Gait Comments toe-out of LLE, decreased terminal knee extension in stance phase bilaterally, instability noted with increased speed and when turning and stopping PT-OP-K Range of Motion Start: 04/28/23 12:54 Freq: Status: Active Protocol: Document 04/28/23 12:55 AB (Rec: 04/28/23 15:12 AB [id number]) Hip Goniometric Range of Motion Hip Right Active Hip ROM WFL No Testing Position Sitting Flexion w/Knee Flexed 93 Extension 0 Internal Rotation 20 External Rotation 15 Comments flexion in supine; ABD not tested due to time constraints Left Active Testing Position Supine Flexion w/Knee Flexed 111 Extension 0 Internal Rotation 25 External Rotation 25 Comments flexion in supine; ABD not tested due to time constraints PT-OP-M Strength Start: 04/28/23 12:54 Freq: Status: Active Protocol: Document 04/28/23 12:55 AB (Rec: 04/28/23 15:12 AB [id number]) Hip Strength Hip Manual Muscle Testing Right Flexion (L2) 4- Good- Abduction 3+ Fair+ Adduction 4- Good- External Rotation 3+ Fair+ Internal Rotation 3+ Fair+ Comments Denies pain Left Flexion (L2) 5 Normal Abduction 4- Good- Adduction 4- Good- External Rotation 4 Good Internal Rotation 4 Good Comments Denies pain Knee Strength Knee Manual Muscle Testing Left Flexion (S2) 5 Normal Extension (L3) 5 Normal Right Flexion (S2) 4 Good Extension (L3) 4+ Good+ PT-OP-Q Treatments Start: 04/28/23 12:54 Freq: Status: Active Protocol: Document 05/08/23 13:00 SW (Rec: 05/08/23 13:45 SW [id number]) Cardio Equipment Recumbent Elliptical ([employer]) Duration (Minutes) 5 Therapeutic Exercises Standing Exercises 2 Standing Exercise Name Step ups Equipment Used 6 step with bilat rails Reps/Minutes 2x5 ea Gait Training Gait Activity 2 Description Stepping over obstacles Device Used SPC x 2 laps, no AD x 2 laps Level of Assistance CGA Surface even Distance/Duration three 2 block, 10 ft Treatment Focus navigating obstacles; stability with ambulation 1 Description Gait with cone weaving Device Used SPC x 2 laps, no AD x 2 laps Level of Assistance CGA Surface even Distance/Duration 5 cones, 10ft Treatment Focus navigating obstacles; stability while ambulating Neuro Re-Education Treatment Balance Activities Hurdles Details Hurdles Surface Firm Equipment // bars Reps/Duration 4 x 6 ft Comments Step to/ reciprocal Foam Details Weight shifts, SLS, step up, obstacle Surface Unstable Equipment // bars Static Details Weight shifts, SLS Surface Firm Equipment // bars PT-OP-T Assessment and Plan Start: 04/28/23 12:54 Freq: Status: Active Protocol: Document 05/08/23 13:00 SW (Rec: 05/08/23 13:45 SW [id number]) Physical Therapy Assessment Goals Five Impairment LEFS score Short Term Goal (STG) Pt's LEFS score to improve to 46/80 or better to show improving symptoms, level of function and QOL. STG Duration 4 Snf Goal (LTG) Pt's LEFS score to improve to 56/80 or better to show improving symptoms, level of function and QOL. LTG Duration 8 Four Impairment TUG time Short Term Goal (STG) Pt to perform TUG in 13 seconds or better with SPC without LOB to show decreasing risk for falls. STG Duration 4 Snf Goal (LTG) Pt to perform TUG in 12 seconds or better with SPC without LOB to show decreased risk for falls. LTG Duration 8 Three Impairment 30 sec STS score Short Term Goal (STG) Pt to perform 11 STS in 30 seconds without use of compensatory stratetgies to maintain his balance and through full ROM to show decreasing risk for falls. STG Duration 4 Licensed Reactor Operator Goal (LTG) Pt to perform 12 STS in 30 seconds without use of compensatory stratetgies to maintain his balance and through full ROM to show decreased risk for falls. LTG Duration 8 Two Impairment Hip AROM deficits Short Term Goal (STG) Pt's hip ER and IR AROM to improve to 25 degrees or better to improve ability to perform ADLs, IADLs and functional mobility, and to improve his gait mechanics. STG Duration 4 Snf Goal (LTG) Pt's hip ER and IR AROM to improve to 30 degrees or better to improve ability to perform ADLs, IADLs and functional mobility, and to improve his gait mechanics. LTG Duration 8 One Impairment Hip AROM deficits Short Term Goal (STG) Pt's hip flexion AROM to improve to 100 degrees or better to improve ability to perform ADLs, IADLs and functional mobility, and to improve his gait mechanics. STG Duration 4 Licensed Reactor Operator Goal (LTG) Pt's hip flexion AROM to improve to 115 degrees or better to improve ability to perform ADLs, IADLs and functional mobility, and to improve his gait mechanics. LTG Duration 8 Assessment Summary Assessment Pt challenged with addition of balance activities this session, hip and ankle strategies engaged. Frequent vc for equal weight shifting in bilateral hips, to decrease compensations. Continued gait training progression today w/ out SPC. Pt ambulating at home w/out AD, is now utilizing it PRN on uneven terrain. Physical Therapy Plan Frequency and Duration Frequency of Treatment 2x/Week Duration of treatment (weeks) 8 Plan of Care Start Date 04/28/23 Plan of Care End Date 06/23/23 Therapeutic Interventions Therapeutic Interventions Balance Training,Gait Training ,Home Exercise Program,Manual Therapy,Neuromuscular Re- education,Patient/Caregiver Education,Self-Care/Home Management,Soft Tissue Mobilization,Taping, Therapeutic Activities, Therapeutic Exercises Modalities Cold Pack/Ice Massage,Electric Stimulation,Hot Packs Next Visit Focus/Plan Next Note Type Treatment Note Next Visit Plan Add static and dynamic standing balance exercises as able.
--- NOTE | 2023-05-13 14:47 | PT.OTN ---
Current Diagnoses Unilateral primary osteoarthritis, right hip (05/13/23) Weakness (05/13/23) Presence of right artificial hip joint (05/13/23) Physical Therapy Treatment Note PT-OP-A Visit Information Start: 04/28/23 12:54 Freq: Status: Active Protocol: Document 05/13/23 13:49 AB (Rec: 05/13/23 14:47 AB [id number]) Out-Patient Physical Therapy Visit Information Visit Information Visit Type Treatment Note Visit Start Time 13:45 Visit Stop Time 14:30 Total Visit Minutes 45 Visit Number 5 Number of HOT TAR ROOFER HELPER Visits 1 PT-OP-B Current Condition Start: 04/28/23 12:54 Freq: Status: Active Protocol: Document 04/28/23 12:55 AB (Rec: 04/28/23 15:12 AB [id number]) Current Condition History of Current Condition Onset Date 03/21/23 History of Current Condition Pt underwent R YAZMIN (anterior approach) on 03/21/23. He was then discharged to SNF due to deficits, he also recieved a PT eval however it was determined outpatient PT. Currently he no longer has any hip pain but he reports feeling week and unbalanced, especially when walking. He has some difficulty ascending and descending stairs, in order to get to his room. THe pt denies having any pain symptoms currently, but reports he feels stiff in the mornings. Prior Treatments and Tests R YAZMIN [facility] for 10 days post surgery Prior Functional Status Baseline Function- ADL's Independent Baseline Function- Mobility Independent Baseline Function- Gait Started to use SPC about 1 month before surgery due to pain and imbalance Baseline Function- Work/School Retired Baseline Function- Recreation/Hobbies Walking on trails Current Functional Impairments (Reported) Functional Limitations- ADL's IND with all ADLs Functional Limitations- Mobility/Gait Uses SPC for ambulation of household and community distances Functional Limitations- Work/School N/A Functional Limitations- Recreation/ Not able to participate in Hobbies recreational activities such as walking on trails Functional Limitations- Other Ascends/descends stairs (14 steps inside house; 3 [place] house) with step to step pattern using both HRs inside and outside PT-OP-C Subjective Start: 04/28/23 12:54 Freq: Status: Active Protocol: Document 05/13/23 13:49 AB (Rec: 05/13/23 14:47 AB [id number]) OP-PT Subjective Patient Comments Patient Comments The pt reports he is doing well overall. He has been trying to not use his cane, even on uneven surfaces. Patient Reported Progress Improving PT-OP-D Balance Start: 04/28/23 12:54 Freq: Status: Active Protocol: Document 04/28/23 12:55 AB (Rec: 04/28/23 15:12 AB [id number]) Balance Tests Single Limb Standing Single Limb- Right Unable to perform Single Limb- Left Unable to perform PT-OP-E Functional Tests Start: 04/28/23 12:54 Freq: Status: Active Protocol: Document 04/28/23 12:55 AB (Rec: 04/28/23 15:12 AB [id number]) Functional Tests 30 Second Sit to Stand Test Score 11 Comments did not use UEs, however used back of legs on plinth to stabilize Timed Up and Go (TUG) Score 14.85 sec Comments With SPC, mild LOB with turn but able to recover IND PT-OP-G Mobility & Gait Start: 04/28/23 12:54 Freq: Status: Active Protocol: Document 04/28/23 12:55 AB (Rec: 04/28/23 15:12 AB [id number]) OP Gait Assessment Assistive Devices Assistive Device Straight Cane Gait Deviations General Gait Pattern Antalgic,Decreased Feet Clearance Factors Limiting Gait Function Factors Limiting Gait Function Decreased Strength,Limited Range of Motion,Poor Balance Comments Gait Comments toe-out of LLE, decreased terminal knee extension in stance phase bilaterally, instability noted with increased speed and when turning and stopping PT-OP-K Range of Motion Start: 04/28/23 12:54 Freq: Status: Active Protocol: Document 04/28/23 12:55 AB (Rec: 04/28/23 15:12 AB [id number]) Hip Goniometric Range of Motion Hip Right Active Hip ROM WFL No Testing Position Sitting Flexion w/Knee Flexed 93 Extension 0 Internal Rotation 20 External Rotation 15 Comments flexion in supine; ABD not tested due to time constraints Left Active Testing Position Supine Flexion w/Knee Flexed 111 Extension 0 Internal Rotation 25 External Rotation 25 Comments flexion in supine; ABD not tested due to time constraints PT-OP-M Strength Start: 04/28/23 12:54 Freq: Status: Active Protocol: Document 04/28/23 12:55 AB (Rec: 08/14/23 15:12 AB [id number]) Hip Strength Hip Manual Muscle Testing Right Flexion (L2) 4- Good- Abduction 3+ Fair+ Adduction 4- Good- External Rotation 3+ Fair+ Internal Rotation 3+ Fair+ Comments Denies pain Left Flexion (L2) 5 Normal Abduction 4- Good- Adduction 4- Good- External Rotation 4 Good Internal Rotation 4 Good Comments Denies pain Knee Strength Knee Manual Muscle Testing Left Flexion (S2) 5 Normal Extension (L3) 5 Normal Right Flexion (S2) 4 Good Extension (L3) 4+ Good+ PT-OP-Q Treatments Start: 04/28/23 12:54 Freq: Status: Active Protocol: Document 05/13/23 13:49 AB (Rec: 05/13/23 14:47 AB [id number]) Cardio Equipment Recumbent Elliptical ([employer]) Duration (Minutes) 5 Therapeutic Exercises Standing Exercises Squats Resistance 5# Equipment Used platic crate, 5# ankle weight Reps/Minutes 2x5 Comments Squat to flower buncher or picker box, set on high table then set back down on floor 2 Standing Exercise Name Step ups Equipment Used 6 step with bilat rails Reps/Minutes 2x10 ea Gait Training Gait Activity Suitcase carry Device Used no AD Level of Assistance SBA Surface even Distance/Duration 106ft x 2 laps ea side Treatment Focus gait mechanics while carrying a bucket at side Comments 5# in bucket Gait+cognitive task Description Normal gait with cognitive task Device Used no AD Level of Assistance SBA Surface even Distance/Duration 160ft x 2 Treatment Focus maintain good gait mechanics Neuro Re-Education Treatment Balance Activities Foam Details Weight shifts Surface Unstable Equipment // bars Reps/Duration 3x6ft Static Details Weight shifts, SLS Surface Firm Equipment // bars Reps/Duration 3x6ft PT-OP-T Assessment and Plan Start: 04/28/23 12:54 Freq: Status: Active Protocol: Document 05/13/23 13:49 AB (Rec: 05/13/23 14:47 AB [id number]) Physical Therapy Assessment Goals Five Impairment LEFS score Short Term Goal (STG) Pt's LEFS score to improve to 46/80 or better to show improving symptoms, level of function and QOL. STG Duration 4 Correctional Manager Goal (LTG) Pt's LEFS score to improve to 56/80 or better to show improving symptoms, level of function and QOL. LTG Duration 8 Four Impairment TUG time Short Term Goal (STG) Pt to perform TUG in 13 seconds or better with SPC without LOB to show decreasing risk for falls. STG Duration 4 Intermediate Goal (LTG) Pt to perform TUG in 12 seconds or better with SPC without LOB to show decreased risk for falls. LTG Duration 8 Three Impairment 30 sec STS score Short Term Goal (STG) Pt to perform 11 STS in 30 seconds without use of compensatory stratetgies to maintain his balance and through full ROM to show decreasing risk for falls. STG Duration 4 Intermediate Goal (LTG) Pt to perform 12 STS in 30 seconds without use of compensatory stratetgies to maintain his balance and through full ROM to show decreased risk for falls. LTG Duration 8 Two Impairment Hip AROM deficits Short Term Goal (STG) Pt's hip ER and IR AROM to improve to 25 degrees or better to improve ability to perform ADLs, IADLs and functional mobility, and to improve his gait mechanics. STG Duration 4 Correctional Manager Goal (LTG) Pt's hip ER and IR AROM to improve to 30 degrees or better to improve ability to perform ADLs, IADLs and functional mobility, and to improve his gait mechanics. LTG Duration 8 One Impairment Hip AROM deficits Short Term Goal (STG) Pt's hip flexion AROM to improve to 100 degrees or better to improve ability to perform ADLs, IADLs and functional mobility, and to improve his gait mechanics. STG Duration 4 Correctional Manager Goal (LTG) Pt's hip flexion AROM to improve to 115 degrees or better to improve ability to perform ADLs, IADLs and functional mobility, and to improve his gait mechanics. LTG Duration 8 Assessment Summary Assessment The pt was progressed today by adding exercises that mimic daily activities, including ambulation on uneven surfaces, walking while performing a cognitive task, walking with weight on one side, and squatting to flower buncher or picker an object form the floor. The pt demonstrates improved stability while ambulating, as not LOB was noticed during session. Gait cait slows with cognitive task compared to other conditions. The pt continues to benefit from skilled PT to improve his deficits, decrease his risk for falls and return to his PLOF. Physical Therapy Plan Frequency and Duration Frequency of Treatment 2x/Week Duration of treatment (weeks) 8 Plan of Care Start Date 04/28/23 Plan of Care End Date 10/09/23 Therapeutic Interventions Therapeutic Interventions Balance Training,Gait Training ,Home Exercise Program,Manual Therapy,Neuromuscular Re- education,Patient/Caregiver Education,Self-Care/Home Management,Soft Tissue Mobilization,Taping, Therapeutic Activities, Therapeutic Exercises Modalities Cold Pack/Ice Massage,Electric Stimulation,Hot Packs Next Visit Focus/Plan Next Note Type Treatment Note Next Visit Plan Add static and dynamic standing balance exercises as able.
--- NOTE | 2023-05-15 16:48 | PT.OTN ---
Current Diagnoses Unilateral primary osteoarthritis, right hip (05/15/23) Weakness (05/15/23) Presence of right artificial hip joint (05/15/23) Physical Therapy Treatment Note PT-OP-A Visit Information Start: 04/28/23 12:54 Freq: Status: Active Protocol: Document 05/15/23 13:43 SW (Rec: 05/15/23 14:46 SW [id number]) Out-Patient Physical Therapy Visit Information Visit Information Visit Type Treatment Note Visit Start Time 13:45 Visit Stop Time 14:30 Total Visit Minutes 45 Visit Number 6 Number of MARBLE MASON Visits 1 Precautions Precautions R YAZMIN anterior approach performed on 03/21/2023 Medical hx (see EMR for additional info): MDD, osteopenia, seizure disorder, HTN, gout, hyperlipidemia, hx of PE, chronic Afib, chronic anticoagulation PT-OP-B Current Condition Start: 04/28/23 12:54 Freq: Status: Active Protocol: Document 04/28/23 12:55 AB (Rec: 04/28/23 15:12 AB [id number]) Current Condition History of Current Condition Onset Date 03/21/23 History of Current Condition Pt underwent R YAZMIN (anterior approach) on 03/21/23. He was then discharged to SNF due to deficits, he also recieved a PT eval however it was determined outpatient PT. Currently he no longer has any hip pain but he reports feeling week and unbalanced, especially when walking. He has some difficulty ascending and descending stairs, in order to get to his room. THe pt denies having any pain symptoms currently, but reports he feels stiff in the mornings. Prior Treatments and Tests R YAZMIN [facility] for 10 days post surgery Prior Functional Status Baseline Function- ADL's Independent Baseline Function- Mobility Independent Baseline Function- Gait Started to use SPC about 1 month before surgery due to pain and imbalance Baseline Function- Work/School Retired Baseline Function- Recreation/Hobbies Walking on trails Current Functional Impairments (Reported) Functional Limitations- ADL's IND with all ADLs Functional Limitations- Mobility/Gait Uses SPC for ambulation of household and community distances Functional Limitations- Work/School N/A Functional Limitations- Recreation/ Not able to participate in Hobbies recreational activities such as walking on trails Functional Limitations- Other Ascends/descends stairs (14 steps inside house; 3 [place] house) with step to step pattern using both HRs inside and outside PT-OP-C Subjective Start: 04/28/23 12:54 Freq: Status: Active Protocol: Document 05/15/23 13:43 SW (Rec: 05/15/23 14:46 SW [id number]) OP-PT Subjective Patient Comments Patient Comments Pt reports hip is doing pretty good. He can feel it a little today, did a fair amount of walking on it the last couple of days. PT-OP-D Balance Start: 04/28/23 12:54 Freq: Status: Active Protocol: Document 04/28/23 12:55 AB (Rec: 04/28/23 15:12 AB [id number]) Balance Tests Single Limb Standing Single Limb- Right Unable to perform Single Limb- Left Unable to perform PT-OP-E Functional Tests Start: 04/28/23 12:54 Freq: Status: Active Protocol: Document 04/28/23 12:55 AB (Rec: 04/28/23 15:12 AB [id number]) Functional Tests 30 Second Sit to Stand Test Score 11 Comments did not use UEs, however used back of legs on plinth to stabilize Timed Up and Go (TUG) Score 14.85 sec Comments With SPC, mild LOB with turn but able to recover IND PT-OP-G Mobility & Gait Start: 04/28/23 12:54 Freq: Status: Active Protocol: Document 04/28/23 12:55 AB (Rec: 04/28/23 15:12 AB [id number]) OP Gait Assessment Assistive Devices Assistive Device Straight Cane Gait Deviations General Gait Pattern Antalgic,Decreased Feet Clearance Factors Limiting Gait Function Factors Limiting Gait Function Decreased Strength,Limited Range of Motion,Poor Balance Comments Gait Comments toe-out of LLE, decreased terminal knee extension in stance phase bilaterally, instability noted with increased speed and when turning and stopping PT-OP-K Range of Motion Start: 04/28/23 12:54 Freq: Status: Active Protocol: Document 04/28/23 12:55 AB (Rec: 04/28/23 15:12 AB [id number]) Hip Goniometric Range of Motion Hip Right Active Hip ROM WFL No Testing Position Sitting Flexion w/Knee Flexed 93 Extension 0 Internal Rotation 20 External Rotation 15 Comments flexion in supine; ABD not tested due to time constraints Left Active Testing Position Supine Flexion w/Knee Flexed 111 Extension 0 Internal Rotation 25 External Rotation 25 Comments flexion in supine; ABD not tested due to time constraints PT-OP-M Strength Start: 04/28/23 12:54 Freq: Status: Active Protocol: Document 04/28/23 12:55 AB (Rec: 04/28/23 15:12 AB [id number]) Hip Strength Hip Manual Muscle Testing Right Flexion (L2) 4- Good- Abduction 3+ Fair+ Adduction 4- Good- External Rotation 3+ Fair+ Internal Rotation 3+ Fair+ Comments Denies pain Left Flexion (L2) 5 Normal Abduction 4- Good- Adduction 4- Good- External Rotation 4 Good Internal Rotation 4 Good Comments Denies pain Knee Strength Knee Manual Muscle Testing Left Flexion (S2) 5 Normal Extension (L3) 5 Normal Right Flexion (S2) 4 Good Extension (L3) 4+ Good+ PT-OP-Q Treatments Start: 04/28/23 12:54 Freq: Status: Active Protocol: Document 05/15/23 13:43 SW (Rec: 05/15/23 14:46 SW [id number]) Cardio Equipment Recumbent Elliptical ([employer] [place]) Duration (Minutes) 5 Therapeutic Exercises Standing Exercises Squats Resistance 5# Equipment Used platic crate, 5# ankle weight Reps/Minutes 2x5 Comments Squat to oyster picker box, set on high table then set back down on floor 2 Standing Exercise Name Step ups Equipment Used 6 step with bilat rails Reps/Minutes 2x10 ea Gait Training Gait Activity Gait + dual task Description Head turns Device Used No AD Level of Assistance CGA Surface Firm Distance/Duration 120 x 2 Treatment Focus gait mechanics while observing environment Suitcase carry Device Used no AD Level of Assistance SBA Surface even Distance/Duration 106ft x 2 laps ea side Treatment Focus gait mechanics while carrying a bucket at side Comments 5# in bucket Neuro Re-Education Treatment Balance Activities Dynamic Details Foam walking Surface unstable Equipment // bars, light BAG MAKING MACHINE OPERATOR PRN Comments variable foam sufaces to simulate unstable terrain Balance board Details A/P, Side to side Surface unstable Equipment balance board Foam Details Weight shifts Surface Unstable Equipment // bars Reps/Duration 3x6ft Static Details Weight shifts, SLS Surface Firm Equipment // bars Reps/Duration 3x6ft PT-OP-T Assessment and Plan Start: 04/28/23 12:54 Freq: Status: Active Protocol: Document 05/15/23 13:43 SW (Rec: 05/15/23 14:46 [id number]) Physical Therapy Assessment Goals Five Impairment LEFS score Short Term Goal (STG) Pt's LEFS score to improve to 46/80 or better to show improving symptoms, level of function and QOL. STG Duration 4 Senior Living Goal (LTG) Pt's LEFS score to improve to 56/80 or better to show improving symptoms, level of function and QOL. LTG Duration 8 Four Impairment TUG time Short Term Goal (STG) Pt to perform TUG in 13 seconds or better with SPC without LOB to show decreasing risk for falls. STG Duration 4 Senior Living Goal (LTG) Pt to perform TUG in 12 seconds or better with SPC without LOB to show decreased risk for falls. LTG Duration 8 Three Impairment 30 sec STS score Short Term Goal (STG) Pt to perform 11 STS in 30 seconds without use of compensatory stratetgies to maintain his balance and through full ROM to show decreasing risk for falls. STG Duration 4 Senior Living Goal (LTG) Pt to perform 12 STS in 30 seconds without use of compensatory stratetgies to maintain his balance and through full ROM to show decreased risk for falls. LTG Duration 8 Two Impairment Hip AROM deficits Short Term Goal (STG) Pt's hip ER and IR AROM to improve to 25 degrees or better to improve ability to perform ADLs, IADLs and functional mobility, and to improve his gait mechanics. STG Duration 4 Senior Living Goal (LTG) Pt's hip ER and IR AROM to improve to 30 degrees or better to improve ability to perform ADLs, IADLs and functional mobility, and to improve his gait mechanics. LTG Duration 8 One Impairment Hip AROM deficits Short Term Goal (STG) Pt's hip flexion AROM to improve to 100 degrees or better to improve ability to perform ADLs, IADLs and functional mobility, and to improve his gait mechanics. STG Duration 4 Auto Damage Adjuster Goal (LTG) Pt's hip flexion AROM to improve to 115 degrees or better to improve ability to perform ADLs, IADLs and functional mobility, and to improve his gait mechanics. LTG Duration 8 Assessment Summary Assessment Pt progressed gait with addition of dual task, gazing the environment. Multiple LOB with self correction during dual tasking, veering in the direction of head turns. Patient may benefit from continued dual tasking challenges with gait, to deacrease fall risk. Physical Therapy Plan Frequency and Duration Frequency of Treatment 2x/Week Duration of treatment (weeks) 8 Plan of Care Start Date 04/28/23 Plan of Care End Date 06/23/23 Therapeutic Interventions Therapeutic Interventions Balance Training,Gait Training ,Home Exercise Program,Manual Therapy,Neuromuscular Re- education,Patient/Caregiver Education,Self-Care/Home Management,Soft Tissue Mobilization,Taping, Therapeutic Activities, Therapeutic Exercises Modalities Cold Pack/Ice Massage,Electric Stimulation,Hot Packs Next Visit Focus/Plan Next Note Type Treatment Note Next Visit Plan Add static and dynamic standing balance exercises as able.
--- NOTE | 2023-05-20 14:03 | PT.OTN ---
Current Diagnoses Unilateral primary osteoarthritis, right hip (05/20/23) Weakness (05/20/23) Presence of right artificial hip joint (05/20/23) Physical Therapy Treatment Note PT-OP-A Visit Information Start: 04/28/23 12:54 Freq: Status: Active Protocol: Document 05/20/23 11:04 AB (Rec: 05/20/23 14:01 AB [id number]) Out-Patient Physical Therapy Visit Information Visit Information Visit Type Treatment Note Visit Start Time 11:00 Visit Stop Time 11:45 Total Visit Minutes 45 Visit Number 7 Number of HOSPICE CARE TRANSITIONS COORDINATOR Visits 2 PT-OP-B Current Condition Start: 04/28/23 12:54 Freq: Status: Active Protocol: Document 04/28/23 12:55 AB (Rec: 04/28/23 15:12 AB [id number]) Current Condition History of Current Condition Onset Date 03/21/23 History of Current Condition Pt underwent R YAZMIN (anterior approach) on 03/21/23. He was then discharged to SNF due to deficits, he also recieved a PT eval however it was determined outpatient PT. Currently he no longer has any hip pain but he reports feeling week and unbalanced, especially when walking. He has some difficulty ascending and descending stairs, in order to get to his room. THe pt denies having any pain symptoms currently, but reports he feels stiff in the mornings. Prior Treatments and Tests R YAZMIN [facility] for 10 days post surgery Prior Functional Status Baseline Function- ADL's Independent Baseline Function- Mobility Independent Baseline Function- Gait Started to use SPC about 1 month before surgery due to pain and imbalance Baseline Function- Work/School Retired Baseline Function- Recreation/Hobbies Walking on trails Current Functional Impairments (Reported) Functional Limitations- ADL's IND with all ADLs Functional Limitations- Mobility/Gait Uses SPC for ambulation of household and community distances Functional Limitations- Work/School N/A Functional Limitations- Recreation/ Not able to participate in Hobbies recreational activities such as walking on trails Functional Limitations- Other Ascends/descends stairs (14 steps inside house; 3 [place] house) with step to step pattern using both HRs inside and outside PT-OP-C Subjective Start: 04/28/23 12:54 Freq: Status: Active Protocol: Document 05/20/23 11:04 AB (Rec: 05/20/23 14:01 AB [id number]) OP-PT Subjective Patient Comments Patient Comments The pt reports continued improvement, though he feels like his right hip is not yet as strong as his left. PT-OP-D Balance Start: 04/28/23 12:54 Freq: Status: Active Protocol: Document 04/28/23 12:55 AB (Rec: 04/28/23 15:12 AB [id number]) Balance Tests Single Limb Standing Single Limb- Right Unable to perform Single Limb- Left Unable to perform PT-OP-E Functional Tests Start: 04/28/23 12:54 Freq: Status: Active Protocol: Document 04/28/23 12:55 AB (Rec: 04/28/23 15:12 AB [id number]) Functional Tests 30 Second Sit to Stand Test Score 11 Comments did not use UEs, however used back of legs on plinth to stabilize Timed Up and Go (TUG) Score 14.85 sec Comments With SPC, mild LOB with turn but able to recover IND PT-OP-G Mobility & Gait Start: 04/28/23 12:54 Freq: Status: Active Protocol: Document 04/28/23 12:55 AB (Rec: 04/28/23 15:12 AB [id number]) OP Gait Assessment Assistive Devices Assistive Device Straight Cane Gait Deviations General Gait Pattern Antalgic,Decreased Feet Clearance Factors Limiting Gait Function Factors Limiting Gait Function Decreased Strength,Limited Range of Motion,Poor Balance Comments Gait Comments toe-out of LLE, decreased terminal knee extension in stance phase bilaterally, instability noted with increased speed and when turning and stopping PT-OP-K Range of Motion Start: 04/28/23 12:54 Freq: Status: Active Protocol: Document 04/28/23 12:55 AB (Rec: 04/28/23 15:12 AB [id number]) Hip Goniometric Range of Motion Hip Right Active Hip ROM WFL No Testing Position Sitting Flexion w/Knee Flexed 93 Extension 0 Internal Rotation 20 External Rotation 15 Comments flexion in supine; ABD not tested due to time constraints Left Active Testing Position Supine Flexion w/Knee Flexed 111 Extension 0 Internal Rotation 25 External Rotation 25 Comments flexion in supine; ABD not tested due to time constraints PT-OP-M Strength Start: 04/28/23 12:54 Freq: Status: Active Protocol: Document 04/28/23 12:55 AB (Rec: 04/28/23 15:12 AB [id number]) Hip Strength Hip Manual Muscle Testing Right Flexion (L2) 4- Good- Abduction 3+ Fair+ Adduction 4- Good- External Rotation 3+ Fair+ Internal Rotation 3+ Fair+ Comments Denies pain Left Flexion (L2) 5 Normal Abduction 4- Good- Adduction 4- Good- External Rotation 4 Good Internal Rotation 4 Good Comments Denies pain Knee Strength Knee Manual Muscle Testing Left Flexion (S2) 5 Normal Extension (L3) 5 Normal Right Flexion (S2) 4 Good Extension (L3) 4+ Good+ PT-OP-Q Treatments Start: 04/28/23 12:54 Freq: Status: Active Protocol: Document 05/20/23 11:04 AB (Rec: 05/20/23 14:01 AB [id number]) Cardio Equipment Recumbent Elliptical ([employer]) Duration (Minutes) 5 Therapeutic Exercises Standing Exercises Squats Resistance 5# Equipment Used plastic crate, 5# ankle weight Reps/Minutes 2x5 Comments Squat to order picker/assembler box, set on high table then set back down on floor 2 Standing Exercise Name Step ups Resistance 5# DB Equipment Used 6 step with 1 hand rail Reps/Minutes 2x10 ea Comments 5# DB in opposite hand Gait Training Gait Activity Suitcase carry Device Used no AD Level of Assistance SBA Surface even Distance/Duration 106ft x 2 laps ea side Treatment Focus gait mechanics while carrying a bucket at side Comments 5# in bucket 1st lap on ea side: normal gait 2nd lap on ea side: mini november 14 Description Stepping over hurdles Device Used none Level of Assistance SBA Surface even Distance/Duration 5 hurdles x 3 laps in // bars Treatment Focus navigating obstacles; stability with ambulation Comments fwd x 3 laps leading with RLE, x 3 laps leading with LLE lateral x 3 laps PT-OP-T Assessment and Plan Start: 04/28/23 12:54 Freq: Status: Active Protocol: Document 05/20/23 11:04 AB (Rec: 05/20/23 14:01 AB [id number]) Physical Therapy Assessment Goals Five Impairment LEFS score Short Term Goal (STG) Pt's LEFS score to improve to 46/80 or better to show improving symptoms, level of function and QOL. STG Duration 4 [facility] Goal (LTG) Pt's LEFS score to improve to 56/80 or better to show improving symptoms, level of function and QOL. LTG Duration 8 Four Impairment TUG time Short Term Goal (STG) Pt to perform TUG in 13 seconds or better with SPC without LOB to show decreasing risk for falls. STG Duration 4 Ac[employer] Block 1 Operator Goal (LTG) Pt to perform TUG in 12 seconds or better with SPC without LOB to show decreased risk for falls. LTG Duration 8 Three Impairment 30 sec STS score Short Term Goal (STG) Pt to perform 11 STS in 30 seconds without use of compensatory strategies to maintain his balance and through full ROM to show decreasing risk for falls. STG Duration 4 [facility] Goal (LTG) Pt to perform 12 STS in 30 seconds without use of compensatory strategies to maintain his balance and through full ROM to show decreased risk for falls. LTG Duration 8 Two Impairment Hip AROM deficits Short Term Goal (STG) Pt's hip ER and IR AROM to improve to 25 degrees or better to improve ability to perform ADLs, IADLs and functional mobility, and to improve his gait mechanics. STG Duration 4 Acds Block 1 Operator Goal (LTG) Pt's hip ER and IR AROM to improve to 30 degrees or better to improve ability to perform ADLs, IADLs and functional mobility, and to improve his gait mechanics. LTG Duration 8 One Impairment Hip AROM deficits Short Term Goal (STG) Pt's hip flexion AROM to improve to 100 degrees or better to improve ability to perform ADLs, IADLs and functional mobility, and to improve his gait mechanics. STG Duration 4 Acds Block 1 Operator Goal (LTG) Pt's hip flexion AROM to improve to 115 degrees or better to improve ability to perform ADLs, IADLs and functional mobility, and to improve his gait mechanics. LTG Duration 8 Assessment Summary Assessment Continued with focus on gait training and LE strengthening. The pt required use of UEs intermittently when performing gait over hurdles, though no overt LOB was noted. He does require extended rest breaks due to cardiovascular endurance deficits. He shows improved form when performing squats, but requires cues for improved form for efficiency when performing STS. Specifically, to avoid standing to too soon upon standing to avoid posterior LOB. The pt continues to benefit from skilled PT to improve his deficits. Physical Therapy Plan Frequency and Duration Frequency of Treatment 2x/Week Duration of treatment (weeks) 8 Plan of Care Start Date 04/28/23 Plan of Care End Date 06/23/23 Therapeutic Interventions Therapeutic Interventions Balance Training,Gait Training ,Home Exercise Program,Manual Therapy,Neuromuscular Re- education,Patient/Caregiver Education,Self-Care/Home Management,Soft Tissue Mobilization,Taping, Therapeutic Activities, Therapeutic Exercises Modalities Cold Pack/Ice Massage,Electric Stimulation,Hot Packs Next Visit Focus/Plan Next Note Type Treatment Note Next Visit Plan Add static and dynamic standing balance exercises as able.
--- NOTE | 2023-05-22 16:16 | PT.OTN ---
Current Diagnoses Unilateral primary osteoarthritis, right hip (05/22/23) Weakness (05/22/23) Presence of right artificial hip joint (05/22/23) Physical Therapy Treatment Note PT-OP-A Visit Information Start: 04/28/23 12:54 Freq: Status: Active Protocol: Document 05/22/23 12:59 SW (Rec: 05/22/23 13:45 SW [id number]) Out-Patient Physical Therapy Visit Information Visit Information Visit Type Treatment Note Visit Start Time 13:00 Visit Stop Time 13:41 Total Visit Minutes 41 Visit Number 8 Number of PLOW MECHANIC Visits 3 Precautions Precautions R YAZMIN anterior approach performed on 03/21/2023 Medical hx (see EMR for additional info): MDD, osteopenia, seizure disorder, HTN, gout, hyperlipidemia, hx of PE, chronic Afib, chronic anticoagulation PT-OP-B Current Condition Start: 04/28/23 12:54 Freq: Status: Active Protocol: Document 04/28/23 12:55 AB (Rec: 04/28/23 15:12 AB [id number]) Current Condition History of Current Condition Onset Date 03/21/23 History of Current Condition Pt underwent R YAZMIN (anterior approach) on 03/21/23. He was then discharged to SNF due to deficits, he also recieved a PT eval however it was determined outpatient PT. Currently he no longer has any hip pain but he reports feeling week and unbalanced, especially when walking. He has some difficulty ascending and descending stairs, in order to get to his room. THe pt denies having any pain symptoms currently, but reports he feels stiff in the mornings. Prior Treatments and Tests R YAZMIN [facility] for 10 days post surgery Prior Functional Status Baseline Function- ADL's Independent Baseline Function- Mobility Independent Baseline Function- Gait Started to use SPC about 1 month before surgery due to pain and imbalance Baseline Function- Work/School Retired Baseline Function- Recreation/Hobbies Walking on trails Current Functional Impairments (Reported) Functional Limitations- ADL's IND with all ADLs Functional Limitations- Mobility/Gait Uses SPC for ambulation of household and community distances Functional Limitations- Work/School N/A Functional Limitations- Recreation/ Not able to participate in Hobbies recreational activities such as walking on trails Functional Limitations- Other Ascends/descends stairs (14 steps inside house; 3 [place] house) with step to step pattern using both HRs inside and outside PT-OP-C Subjective Start: 04/28/23 12:54 Freq: Status: Active Protocol: Document 05/22/23 12:59 SW (Rec: 05/22/23 13:45 SW [id number]) OP-PT Subjective Patient Comments Patient Comments Pt reports pain in top of R knee cap, got out of bed and pulled covers, thinks it may have been from that. Pt feels pretty fatigued today, wokeup tired. PT-OP-D Balance Start: 04/28/23 12:54 Freq: Status: Active Protocol: Document 04/28/23 12:55 AB (Rec: 04/28/23 15:12 AB [id number]) Balance Tests Single Limb Standing Single Limb- Right Unable to perform Single Limb- Left Unable to perform PT-OP-E Functional Tests Start: 04/28/23 12:54 Freq: Status: Active Protocol: Document 04/28/23 12:55 AB (Rec: 04/28/23 15:12 AB [id number]) Functional Tests 30 Second Sit to Stand Test Score 11 Comments did not use UEs, however used back of legs on plinth to stabilize Timed Up and Go (TUG) Score 14.85 sec Comments With SPC, mild LOB with turn but able to recover IND PT-OP-G Mobility & Gait Start: 04/28/23 12:54 Freq: Status: Active Protocol: Document 04/28/23 12:55 AB (Rec: 04/28/23 15:12 AB [id number]) OP Gait Assessment Assistive Devices Assistive Device Straight Cane Gait Deviations General Gait Pattern Antalgic,Decreased Feet Clearance Factors Limiting Gait Function Factors Limiting Gait Function Decreased Strength,Limited Range of Motion,Poor Balance Comments Gait Comments toe-out of LLE, decreased terminal knee extension in stance phase bilaterally, instability noted with increased speed and when turning and stopping PT-OP-K Range of Motion Start: 04/28/23 12:54 Freq: Status: Active Protocol: Document 04/28/23 12:55 AB (Rec: 04/28/23 15:12 AB [id number]) Hip Goniometric Range of Motion Hip Right Active Hip ROM WFL No Testing Position Sitting Flexion w/Knee Flexed 93 Extension 0 Internal Rotation 20 External Rotation 15 Comments flexion in supine; ABD not tested due to time constraints Left Active Testing Position Supine Flexion w/Knee Flexed 111 Extension 0 Internal Rotation 25 External Rotation 25 Comments flexion in supine; ABD not tested due to time constraints PT-OP-M Strength Start: 04/28/23 12:54 Freq: Status: Active Protocol: Document 04/28/23 12:55 AB (Rec: 04/28/23 15:12 AB [id number]) Hip Strength Hip Manual Muscle Testing Right Flexion (L2) 4- Good- Abduction 3+ Fair+ Adduction 4- Good- External Rotation 3+ Fair+ Internal Rotation 3+ Fair+ Comments Denies pain Left Flexion (L2) 5 Normal Abduction 4- Good- Adduction 4- Good- External Rotation 4 Good Internal Rotation 4 Good Comments Denies pain Knee Strength Knee Manual Muscle Testing Left Flexion (S2) 5 Normal Extension (L3) 5 Normal Right Flexion (S2) 4 Good Extension (L3) 4+ Good+ PT-OP-Q Treatments Start: 04/28/23 12:54 Freq: Status: Active Protocol: Document 05/22/23 12:59 SW (Rec: 05/22/23 13:45 SW [id number]) Cardio Equipment Recumbent Elliptical ([employer]) Duration (Minutes) 5 Therapeutic Exercises Standing Exercises 6 Standing Exercise Name Side Step Ups Resistance 5# Equipment Used 6 step L 4 step R Reps/Minutes 2x10 ea Squats Resistance 5# Equipment Used plastic crate, 5# ankle weight Reps/Minutes 2x5 Comments Squat to machine operator picker box, set on high table then set back down on floor 2 Standing Exercise Name Step ups Resistance 5# DB Equipment Used 6 step with 1 hand rail Reps/Minutes 2x10 ea Comments 5# DB in opposite hand Gait Training Gait Activity Suitcase carry Device Used no AD Level of Assistance SBA Surface even Distance/Duration 106ft x 2 laps ea side Treatment Focus gait mechanics while carrying a bucket at side Comments 5# in bucket 1st lap on ea side: normal gait 2nd lap on ea side: november Neuro Re-Education Treatment Balance Activities Foam Details SLS Surface unstable PT-OP-T Assessment and Plan Start: 04/28/23 12:54 Freq: Status: Active Protocol: Document 05/22/23 12:59 SW (Rec: 05/22/23 13:45 SW [id number]) Physical Therapy Assessment Goals Five Impairment LEFS score Short Term Goal (STG) Pt's LEFS score to improve to 46/80 or better to show improving symptoms, level of function and QOL. STG Duration 4 Longterm Goal (LTG) Pt's LEFS score to improve to 56/80 or better to show improving symptoms, level of function and QOL. LTG Duration 8 Four Impairment TUG time Short Term Goal (STG) Pt to perform TUG in 13 seconds or better with SPC without LOB to show decreasing risk for falls. STG Duration 4 Longterm Goal (LTG) Pt to perform TUG in 12 seconds or better with SPC without LOB to show decreased risk for falls. LTG Duration 8 Three Impairment 30 sec STS score Short Term Goal (STG) Pt to perform 11 STS in 30 seconds without use of compensatory stratetgies to maintain his balance and through full ROM to show decreasing risk for falls. STG Duration 4 [place] Goal (LTG) Pt to perform 12 STS in 30 seconds without use of compensatory stratetgies to maintain his balance and through full ROM to show decreased risk for falls. LTG Duration 8 Two Impairment Hip AROM deficits Short Term Goal (STG) Pt's hip ER and IR AROM to improve to 25 degrees or better to improve ability to perform ADLs, IADLs and functional mobility, and to improve his gait mechanics. STG Duration 4 [place] [employer] Goal (LTG) Pt's hip ER and IR AROM to improve to 30 degrees or better to improve ability to perform ADLs, IADLs and functional mobility, and to improve his gait mechanics. LTG Duration 8 One Impairment Hip AROM deficits Short Term Goal (STG) Pt's hip flexion AROM to improve to 100 degrees or better to improve ability to perform ADLs, IADLs and functional mobility, and to improve his gait mechanics. STG Duration 4 [place] [employer] Goal (LTG) Pt's hip flexion AROM to improve to 115 degrees or better to improve ability to perform ADLs, IADLs and functional mobility, and to improve his gait mechanics. LTG Duration 8 Assessment Summary Assessment Pt came to session today fatigued, required frequent seated rest breaks throughout session. Continued LE strengthening and gait training, ended session a few minutes early d/t pt fatigue, PLOW MECHANIC and pt agreeable. Physical Therapy Plan Frequency and Duration Frequency of Treatment 2x/Week Duration of treatment (weeks) 8 Plan of Care Start Date 04/28/23 Plan of Care End Date 06/23/23 Therapeutic Interventions Therapeutic Interventions Balance Training,Gait Training ,Home Exercise Program,Manual Therapy,Neuromuscular Re- education,Patient/Caregiver Education,Self-Care/Home Management,Soft Tissue Mobilization,Taping, Therapeutic Activities, Therapeutic Exercises Modalities Cold Pack/Ice Massage,Electric Stimulation,Hot Packs Next Visit Focus/Plan Next Note Type Treatment Note Next Visit Plan Add static and dynamic standing balance exercises as able.
--- NOTE | 2023-05-26 14:26 | PT.OPPN ---
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 He was then discharged to SNF due to deficits, he also recieved a PT eval however it was determined outpatient PT. Currently he no longer has any hip pain but he reports feeling week and unbalanced, especially when walking. He has some difficulty ascending and descending stairs, in order to get to his room. THe pt denies having any pain symptoms currently, but reports he feels stiff in the mornings. Prior Treatments and Tests R YAZMIN [facility] for 10 days post surgery Current Functional Impairments (Reported) Functional Limitations- ADL's IND with all ADLs Functional Limitations- Mobility/Gait Uses SPC for ambulation of household and community distances Functional Limitations- Work/School N/A Functional Limitations- Recreation/ Not able to participate in Hobbies recreational activities such as walking on trails Functional Limitations- Other Ascends/descends stairs (14 steps inside house; 3 [place] house) with step to step pattern using both HRs inside and outside PT-OP-C Subjective Start: 04/28/23 12:54 Freq: Status: Active Protocol: Document 05/26/23 13:08 AB (Rec: 05/26/23 14:24 AB [id number]) OP-PT Subjective Patient Comments Patient Comments The pt reports he has been feeling more SOB at rest than he typically does, so he will be reaching out to his MD regarding this. Overall he states he has been feeling Patient Questionnaires Lower Extremity Functional Scale LEFS Score 36/80 LEFS Impairment 40 to 59% Impaired (Score 32- 47) PT-OP-D Balance Start: 04/28/23 12:54 Freq: Status: Active Protocol: Document 05/26/23 14:25 AB (Rec: 05/26/23 14:26 AB [id number]) Balance Tests Single Limb Standing Single Limb- Right NT today Single Limb- Left NT today PT-OP-E Functional Tests Start: 04/28/23 12:54 Freq: Status: Active Protocol: Document 05/26/23 13:08 AB (Rec: 05/26/23 14:24 AB [id number]) Functional Tests 30 Second Sit to Stand Test Score 12 Comments did not use UEs Timed Up and Go (TUG) Score 12.6 Comments without AD, no LOB PT-OP-G Mobility & Gait Start: 04/28/23 12:54 Freq: Status: Active Protocol: Document 05/26/23 13:08 AB (Rec: 05/26/23 14:24 AB [id number]) OP Gait Assessment Assistive Devices Assistive Device None Gait Deviations General Gait Pattern Decreased Feet Clearance Factors Limiting Gait Function Factors Limiting Gait Function Decreased Strength Comments Gait Comments toe-out of LLE, decreased terminal knee extension in stance phase bilaterally PT-OP-K Range of Motion Start: 04/28/23 12:54 Freq: Status: Active Protocol: Document 05/26/23 13:08 AB (Rec: 05/26/23 14:24 AB [id number]) Hip Goniometric Range of Motion Hip Measured in Degrees Right Active Hip ROM WFL No Testing Position Sitting Flexion w/Knee Flexed 125 Extension 0 Internal Rotation 32 External Rotation 28 Comments flexion in supine; ABD not tested due to time constraints Left Active Testing Position Supine Flexion w/Knee Flexed 125 Extension 0 Internal Rotation 35 External Rotation 30 Comments flexion in supine; ABD not tested due to time constraints PT-OP-M Strength Start: 04/28/23 12:54 Freq: Status: Active Protocol: Document 05/26/23 13:08 AB (Rec: 05/26/23 14:24 AB [id number]) Hip Strength Hip Manual Muscle Testing Right Flexion (L2) 4 Good Extension (S1) 4- Good- Abduction 4- Good- Adduction 4- Good- External Rotation 4- Good- Internal Rotation 4 Good Comments Denies pain Left Flexion (L2) 5 Normal Extension (S1) 4 Good Abduction 4- Good- Adduction 4- Good- External Rotation 4+ Good+ Internal Rotation 4+ Good+ Comments Denies pain Knee Strength Knee Manual Muscle Testing Left Flexion (S2) 5 Normal Extension (L3) 5 Normal Right Flexion (S2) 4+ Good+ Extension (L3) 5 Normal PT-OP-T Assessment and Plan Start: 04/28/23 12:54 Freq: Status: Active Protocol: Document 05/26/23 13:08 AB (Rec: 05/26/23 14:24 AB [id number]) Physical Therapy Assessment Rehab Potential Rehabilitation Potential Good Evaluation Complexity Number of Personal Factors/Comorbidities 3 or More Number of Body Systems Impaired 1-2 Clinical Presentation at Evaluation Stable Impairments Impairments Balance,Functional Mobility, Gait,ROM,Strength Goals Five Impairment LEFS score Short Term Goal (STG) Pt's LEFS score to improve to 46/80 or better to show improving symptoms, level of function and QOL. STG Duration 4 Correction Goal (LTG) Pt's LEFS score to improve to 56/80 or better to show improving symptoms, level of function and QOL. LTG Duration 8 Four Impairment TUG time Short Term Goal (STG) Pt to perform TUG in 13 seconds or better with SPC without LOB to show decreasing risk for falls. STG Duration 4 Correction Goal (LTG) Pt to perform TUG in 12 seconds or better with SPC without LOB to show decreased risk for falls. LTG Duration 8 Three Impairment 30 sec STS score Short Term Goal (STG) Pt to perform 11 STS in 30 seconds without use of compensatory stratetgies to maintain his balance and through full ROM to show decreasing risk for falls. STG Duration 4 Correction Goal (LTG) Pt to perform 12 STS in 30 seconds without use of compensatory stratetgies to maintain his balance and through full ROM to show decreased risk for falls. LTG Duration 8 Two Impairment Hip AROM deficits Short Term Goal (STG) Pt's hip ER and IR AROM to improve to 25 degrees or better to improve ability to perform ADLs, IADLs and functional mobility, and to improve his gait mechanics. STG Duration 4 Fitness And Wellness Coordinator Goal (LTG) Pt's hip ER and IR AROM to improve to 30 degrees or better to improve ability to perform ADLs, IADLs and functional mobility, and to improve his gait mechanics. LTG Duration 8 One Impairment Hip AROM deficits Short Term Goal (STG) Pt's hip flexion AROM to improve to 100 degrees or better to improve ability to perform ADLs, IADLs and functional mobility, and to improve his gait mechanics. STG Duration 4 Fitness And Wellness Coordinator Goal (LTG) Pt's hip flexion AROM to improve to 115 degrees or better to improve ability to perform ADLs, IADLs and functional mobility, and to improve his gait mechanics. LTG Duration 8 Progress Towards Goals Progress Towards Goals Progressing Toward Goals Assessment Summary Assessment Marvel Parekh has completed 8 visits of skilled PT to improve deficits post right YAZMIN performed on 03/21/23. He shows significant improvement in his hip AROM, LE strength and gait mechanics , as detailed above. The pt no longer requires use of SPC to ambulate with good mechanics and maintains good stability when ambulating on even surfaces with minimal distractions. However, he continues with muscular weakness and balance deficits which increase his risk for falls, as demonstrated by the pt's 30sec STS and TUG scores. Based on these improvements but remaining limitations, the pt would continue to benefit from skilled PT as per his POC to return to his PLOF and reduce his risk for falls. Physical Therapy Plan Frequency and Duration Frequency of Treatment 2x/Week Duration of treatment (weeks) 8 Plan of Care Start Date 04/28/23 Plan of Care End Date 06/23/23 Therapeutic Interventions Therapeutic Interventions Balance Training,Gait Training ,Home Exercise Program,Manual Therapy,Neuromuscular Re- education,Patient/Caregiver Education,Self-Care/Home Management,Soft Tissue Mobilization,Taping, Therapeutic Activities, Therapeutic Exercises Modalities Cold Pack/Ice Massage,Electric Stimulation,Hot Packs Next Visit Focus/Plan Next Note Type Treatment Note Next Visit Plan Update/progress HEP to more challenging LE strength exercises.
--- NOTE | 2023-05-26 14:38 | PT.OPPN ---
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 He was then discharged to SNF due to deficits, he also recieved a PT eval however it was determined outpatient PT. Currently he no longer has any hip pain but he reports feeling week and unbalanced, especially when walking. He has some difficulty ascending and descending stairs, in order to get to his room. THe pt denies having any pain symptoms currently, but reports he feels stiff in the mornings. Prior Treatments and Tests R Y[facility]MIN [facility] for 10 days post surgery Current Functional Impairments (Reported) Functional Limitations- ADL's IND with all ADLs Functional Limitations- Mobility/Gait Uses SPC for ambulation of household and community distances Functional Limitations- Work/School N/A Functional Limitations- Recreation/ Not able to participate in Hobbies recreational activities such as walking on trails Functional Limitations- Other Ascends/descends stairs (14 steps inside house; 3 [place] house) with step to step pattern using both HRs inside and outside PT-OP-C Subjective Start: 04/28/23 12:54 Freq: Status: Active Protocol: Document 05/26/23 13:08 AB (Rec: 05/26/23 14:24 AB [id number]) OP-PT Subjective Patient Comments Patient Comments The pt reports he has been feeling more SOB at rest than he typically does, so he will be reaching out to his MD regarding this. Overall he states he has been feeling Patient Questionnaires Lower Extremity Functional Scale LEFS Score 53/80 LEFS Impairment 20 to 39% Impaired (Score 48- 62) PT-OP-D Balance Start: 04/28/23 12:54 Freq: Status: Active Protocol: Document 05/26/23 14:25 AB (Rec: 05/26/23 14:26 AB [id number]) Balance Tests Single Limb Standing Single Limb- Right NT today Single Limb- Left NT today PT-OP-E Functional Tests Start: 04/28/23 12:54 Freq: Status: Active Protocol: Document 05/26/23 13:08 AB (Rec: 05/26/23 14:24 AB [id number]) Functional Tests 30 Second Sit to Stand Test Score 12 Comments did not use UEs Timed Up and Go (TUG) Score 12.6 Comments without AD, no LOB PT-OP-G Mobility & Gait Start: 04/28/23 12:54 Freq: Status: Active Protocol: Document 05/26/23 13:08 AB (Rec: 05/26/23 14:24 AB [id number]) OP Gait Assessment Assistive Devices Assistive Device None Gait Deviations General Gait Pattern Decreased Feet Clearance Factors Limiting Gait Function Factors Limiting Gait Function Decreased Strength Comments Gait Comments toe-out of LLE, decreased terminal knee extension in stance phase bilaterally PT-OP-K Range of Motion Start: 04/28/23 12:54 Freq: Status: Active Protocol: Document 05/26/23 13:08 AB (Rec: 05/26/23 14:24 AB [id number]) Hip Goniometric Range of Motion Hip Measured in Degrees Right Active Hip ROM WFL No Testing Position Sitting Flexion w/Knee Flexed 125 Extension 0 Internal Rotation 32 External Rotation 28 Comments flexion in supine; ABD not tested due to time constraints Left Active Testing Position Supine Flexion w/Knee Flexed 125 Extension 0 Internal Rotation 35 External Rotation 30 Comments flexion in supine; ABD not tested due to time constraints PT-OP-M Strength Start: 04/28/23 12:54 Freq: Status: Active Protocol: Document 05/26/23 13:08 AB (Rec: 05/26/23 14:24 AB [id number]) Hip Strength Hip Manual Muscle Testing Right Flexion (L2) 4 Good Extension (S1) 4- Good- Abduction 4- Good- Adduction 4- Good- External Rotation 4- Good- Internal Rotation 4 Good Comments Denies pain Left Flexion (L2) 5 Normal Extension (S1) 4 Good Abduction 4- Good- Adduction 4- Good- External Rotation 4+ Good+ Internal Rotation 4+ Good+ Comments Denies pain Knee Strength Knee Manual Muscle Testing Left Flexion (S2) 5 Normal Extension (L3) 5 Normal Right Flexion (S2) 4+ Good+ Extension (L3) 5 Normal PT-OP-T Assessment and Plan Start: 04/28/23 12:54 Freq: Status: Active Protocol: Document 05/26/23 13:08 AB (Rec: 05/26/23 14:24 AB [id number]) Physical Therapy Assessment Rehab Potential Rehabilitation Potential Good Evaluation Complexity Number of Personal Factors/Comorbidities 3 or More Number of Body Systems Impaired 1-2 Clinical Presentation at Evaluation Stable Impairments Impairments Balance,Functional Mobility, Gait,ROM,Strength Goals Five Impairment LEFS score Short Term Goal (STG) Pt's LEFS score to improve to 46/80 or better to show improving symptoms, level of function and QOL. STG Duration 4 Retirement Goal (LTG) Pt's LEFS score to improve to 56/80 or better to show improving symptoms, level of function and QOL. LTG Duration 8 Four Impairment TUG time Short Term Goal (STG) Pt to perform TUG in 13 seconds or better with SPC without LOB to show decreasing risk for falls. STG Duration 4 Retirement Goal (LTG) Pt to perform TUG in 12 seconds or better with SPC without LOB to show decreased risk for falls. LTG Duration 8 Three Impairment 30 sec STS score Short Term Goal (STG) Pt to perform 11 STS in 30 seconds without use of compensatory stratetgies to maintain his balance and through full ROM to show decreasing risk for falls. STG Duration 4 Retirement Goal (LTG) Pt to perform 12 STS in 30 seconds without use of compensatory stratetgies to maintain his balance and through full ROM to show decreased risk for falls. LTG Duration 8 Two Impairment Hip AROM deficits Short Term Goal (STG) Pt's hip ER and IR AROM to improve to 25 degrees or better to improve ability to perform ADLs, IADLs and functional mobility, and to improve his gait mechanics. STG Duration 4 Petrol Tanker Driver Goal (LTG) Pt's hip ER and IR AROM to improve to 30 degrees or better to improve ability to perform ADLs, IADLs and functional mobility, and to improve his gait mechanics. LTG Duration 8 One Impairment Hip AROM deficits Short Term Goal (STG) Pt's hip flexion AROM to improve to 100 degrees or better to improve ability to perform ADLs, IADLs and functional mobility, and to improve his gait mechanics. STG Duration 4 Petrol Tanker Driver Goal (LTG) Pt's hip flexion AROM to improve to 115 degrees or better to improve ability to perform ADLs, IADLs and functional mobility, and to improve his gait mechanics. LTG Duration 8 Progress Towards Goals Progress Towards Goals Progressing Toward Goals Assessment Summary Assessment Marvel Parekh has completed 8 visits of skilled PT to improve deficits post right YAZMIN performed on 03/21/23. He shows significant improvement in his hip AROM, LE strength and gait mechanics , as detailed above. The pt no longer requires use of SPC to ambulate with good mechanics and maintains good stability when ambulating on even surfaces with minimal distractions. However, he continues with muscular weakness and balance deficits which increase his risk for falls, as demonstrated by the pt's 30sec STS and TUG scores. Based on these improvements but remaining limitations, the pt would continue to benefit from skilled PT as per his POC to return to his PLOF and reduce his risk for falls. Physical Therapy Plan Frequency and Duration Frequency of Treatment 2x/Week Duration of treatment (weeks) 8 Plan of Care Start Date 04/28/23 Plan of Care End Date 06/23/23 Therapeutic Interventions Therapeutic Interventions Balance Training,Gait Training ,Home Exercise Program,Manual Therapy,Neuromuscular Re- education,Patient/Caregiver Education,Self-Care/Home Management,Soft Tissue Mobilization,Taping, Therapeutic Activities, Therapeutic Exercises Modalities Cold Pack/Ice Massage,Electric Stimulation,Hot Packs Next Visit Focus/Plan Next Note Type Treatment Note Next Visit Plan Update/progress HEP to more challenging LE strength exercises.
--- NOTE | 2023-05-29 16:29 | PT.OTN ---
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 He was then discharged to SNF due to deficits, he also recieved a PT eval however it was determined outpatient PT. Currently he no longer has any hip pain but he reports feeling week and unbalanced, especially when walking. He has some difficulty ascending and descending stairs, in order to get to his room. THe pt denies having any pain symptoms currently, but reports he feels stiff in the mornings. Prior Treatments and Tests R YAZMIN SNF for 10 days post surgery Current Functional Impairments (Reported) Functional Limitations- ADL's IND with all ADLs Functional Limitations- Mobility/Gait Uses SPC for ambulation of household and community distances Functional Limitations- Work/School N/A Functional Limitations- Recreation/ Not able to participate in Hobbies recreational activities such as walking on trails Functional Limitations- Other Ascends/descends stairs (14 steps inside house; 3 KENIA house) with step to step pattern using both HRs inside and outside PT-OP-C Subjective Start: 04/28/23 12:54 Freq: Status: Active Protocol: Document 05/29/23 13:50 SW (Rec: 05/29/23 14:42 SW [id number]) OP-PT Subjective Patient Comments Patient Comments Pt reports he talked to his medical doctor about his SOB, his afib medicine is a balancing act, fatigue has gotten better, but still tired . PT-OP-D Balance Start: 04/28/23 12:54 Freq: Status: Active Protocol: Document 05/26/23 14:25 AB (Rec: 05/26/23 14:26 AB [id number]) Balance Tests Single Limb Standing Single Limb- Right NT today Single Limb- Left NT today PT-OP-E Functional Tests Start: 04/28/23 12:54 Freq: Status: Active Protocol: Document 05/26/23 13:08 AB (Rec: 05/26/23 14:24 AB [id number]) Functional Tests 30 Second Sit to Stand Test Score 12 Comments did not use UEs Timed Up and Go (TUG) Score 12.6 Comments without AD, no LOB PT-OP-G Mobility & Gait Start: 04/28/23 12:54 Freq: Status: Active Protocol: Document 05/26/23 13:08 AB (Rec: 05/26/23 14:24 AB [id number]) OP Gait Assessment Assistive Devices Assistive Device None Gait Deviations General Gait Pattern Decreased Feet Clearance Factors Limiting Gait Function Factors Limiting Gait Function Decreased Strength Comments Gait Comments toe-out of LLE, decreased terminal knee extension in stance phase bilaterally PT-OP-K Range of Motion Start: 04/28/23 12:54 Freq: Status: Active Protocol: Document 05/26/23 13:08 AB (Rec: 05/26/23 14:24 AB [id number]) Hip Goniometric Range of Motion Hip Right Active Hip ROM WFL No Testing Position Sitting Flexion w/Knee Flexed 125 Extension 0 Internal Rotation 32 External Rotation 28 Comments flexion in supine; ABD not tested due to time constraints Left Active Testing Position Supine Flexion w/Knee Flexed 125 Extension 0 Internal Rotation 35 External Rotation 30 Comments flexion in supine; ABD not tested due to time constraints PT-OP-M Strength Start: 04/28/23 12:54 Freq: Status: Active Protocol: Document 05/26/23 13:08 AB (Rec: 05/26/23 14:24 AB [id number]) Hip Strength Hip Manual Muscle Testing Right Flexion (L2) 4 Good Extension (S1) 4- Good- Abduction 4- Good- Adduction 4- Good- External Rotation 4- Good- Internal Rotation 4 Good Comments Denies pain Left Flexion (L2) 5 Normal Extension (S1) 4 Good Abduction 4- Good- Adduction 4- Good- External Rotation 4+ Good+ Internal Rotation 4+ Good+ Comments Denies pain Knee Strength Knee Manual Muscle Testing Left Flexion (S2) 5 Normal Extension (L3) 5 Normal Right Flexion (S2) 4+ Good+ Extension (L3) 5 Normal PT-OP-Q Treatments Start: 04/28/23 12:54 Freq: Status: Active Protocol: Document 05/29/23 13:50 SW (Rec: 05/29/23 14:42 [id number]) Therapeutic Exercises Standing Exercises 6 Standing Exercise Name Side Step Ups Resistance 7# Equipment Used 6 step Reps/Minutes 2x10 ea 5 Standing Exercise Name SLR Side bilateral Resistance Loíza TB above knees Reps/Minutes 2x10 4 Standing Exercise Name Hip ext Side bilateral Resistance Loíza TB above knees Reps/Minutes 2x10 Comments ea 3 Standing Exercise Name Hip ABD Side bilateral Resistance Loíza TB above knees Reps/Minutes 2x10 ea 2 Standing Exercise Name Step ups Resistance 7# DB Equipment Used 6 step with 1 hand rail Reps/Minutes 1x10 ea Comments DB in opposite hand 1 Standing Exercise Name STS Resistance Loíza TB above knees Reps/Minutes 1x8 Comments With BUE support Therapeutic Activity Therapeutic Activity Vitals Name O2, Pulse Comments SaO2 93% Pulse 64 PT-OP-T Assessment and Plan Start: 04/28/23 12:54 Freq: Status: Active Protocol: Document 05/29/23 13:50 (Rec: 05/29/23 14:42 [id number]) Physical Therapy Assessment Goals Five Impairment LEFS score Short Term Goal (STG) Pt's LEFS score to improve to 46/80 or better to show improving symptoms, level of function and QOL. STG Duration 4 Otr Truck Driver Goal (LTG) Pt's LEFS score to improve to 56/80 or better to show improving symptoms, level of function and QOL. LTG Duration 8 Four Impairment TUG time Short Term Goal (STG) Pt to perform TUG in 13 seconds or better with SPC without LOB to show decreasing risk for falls. STG Duration 4 Fci Goal (LTG) Pt to perform TUG in 12 seconds or better with SPC without LOB to show decreased risk for falls. LTG Duration 8 Three Impairment 30 sec STS score Short Term Goal (STG) Pt to perform 11 STS in 30 seconds without use of compensatory stratetgies to maintain his balance and through full ROM to show decreasing risk for falls. STG Duration 4 Otr Truck Driver Goal (LTG) Pt to perform 12 STS in 30 seconds without use of compensatory stratetgies to maintain his balance and through full ROM to show decreased risk for falls. LTG Duration 8 Two Impairment Hip AROM deficits Short Term Goal (STG) Pt's hip ER and IR AROM to improve to 25 degrees or better to improve ability to perform ADLs, IADLs and functional mobility, and to improve his gait mechanics. STG Duration 4 Fci Goal (LTG) Pt's hip ER and IR AROM to improve to 30 degrees or better to improve ability to perform ADLs, IADLs and functional mobility, and to improve his gait mechanics. LTG Duration 8 One Impairment Hip AROM deficits Short Term Goal (STG) Pt's hip flexion AROM to improve to 100 degrees or better to improve ability to perform ADLs, IADLs and functional mobility, and to improve his gait mechanics. STG Duration 4 Fci Goal (LTG) Pt's hip flexion AROM to improve to 115 degrees or better to improve ability to perform ADLs, IADLs and functional mobility, and to improve his gait mechanics. LTG Duration 8 Assessment Summary Assessment Pt required multiple seated rest breaks throughout session d/t fatigue, see subjective for comments. Checked pulse 64 Sa02 93 post exercise fatigue . Reviewed HEP and progressed with addition of Amy TB, pt challenged required verbal cues for compensations, tolerated well with no c/o of pain. Pt forgot amy TB, plan to issue next session. Physical Therapy Plan Frequency and Duration Frequency of Treatment 2x/Week Duration of treatment (weeks) 8 Plan of Care Start Date 04/28/23 Plan of Care End Date 06/23/23 Therapeutic Interventions Therapeutic Interventions Balance Training,Gait Training ,Home Exercise Program,Manual Therapy,Neuromuscular Re- education,Patient/Caregiver Education,Self-Care/Home Management,Soft Tissue Mobilization,Taping, Therapeutic Activities, Therapeutic Exercises Modalities Cold Pack/Ice Massage,Electric Stimulation,Hot Packs Next Visit Focus/Plan Next Note Type Treatment Note Next Visit Plan Update/progress HEP to more challenging LE strength exercises.
--- NOTE | 2023-06-02 15:11 | PT.OTN ---
Current Diagnoses Unilateral primary osteoarthritis, right hip (06/02/23) Weakness (06/02/23) Presence of right artificial hip joint (06/02/23) Physical Therapy Treatment Note PT-OP-A Visit Information Start: 04/28/23 12:54 Freq: Status: Active Protocol: Document 06/02/23 13:08 AB (Rec: 06/02/23 15:10 AB [id number]) Out-Patient Physical Therapy Visit Information Visit Information Visit Type Treatment Note Visit Start Time 13:03 Visit Stop Time 13:45 Total Visit Minutes 42 Visit Number 11 PT-OP-B Current Condition Start: 04/28/23 12:54 Freq: Status: Active Protocol: Document 05/26/23 13:08 AB (Rec: 05/26/23 14:24 AB [id number]) Current Condition History of Current Condition Onset Date 03/21/23 History of Current Condition Pt underwent R YAZMIN (anterior approach) on 03/21/23. He was then discharged to SNF due to deficits, he also recieved a PT eval however it was determined outpatient PT. Currently he no longer has any hip pain but he reports feeling week and unbalanced, especially when walking. He has some difficulty ascending and descending stairs, in order to get to his room. THe pt denies having any pain symptoms currently, but reports he feels stiff in the mornings. Prior Treatments and Tests R YAZ[facility] for 10 days post surgery Current Functional Impairments (Reported) Functional Limitations- ADL's IND with all ADLs Functional Limitations- Mobility/Gait Uses SPC for ambulation of household and community distances Functional Limitations- Work/School N/A Functional Limitations- Recreation/ Not able to participate in Hobbies recreational activities such as walking on trails Functional Limitations- Other Ascends/descends stairs (14 steps inside house; 3 K[place] house) with step to step pattern using both HRs inside and outside PT-OP-C Subjective Start: 04/28/23 12:54 Freq: Status: Active Protocol: Document 06/02/23 13:08 AB (Rec: 06/02/23 15:10 AB [id number]) OP-PT Subjective Patient Comments Patient Comments The pt reports he went to ED yesterday due to worsening SOB . He states he was d/c with an increased dose of Lasix and instructions to schedule and appt with PCP. Per pt, the ER doctor believes he may have CHF. Otherwise, he states his hip has been feeling fine. PT-OP-D Balance Start: 04/28/23 12:54 Freq: Status: Active Protocol: Document 05/26/23 14:25 AB (Rec: 05/26/23 14:26 AB [id number]) Balance Tests Single Limb Standing Single Limb- Right NT today Single Limb- Left NT today PT-OP-E Functional Tests Start: 04/28/23 12:54 Freq: Status: Active Protocol: Document 05/26/23 13:08 AB (Rec: 05/26/23 14:24 AB [id number]) Functional Tests 30 Second Sit to Stand Test Score 12 Comments did not use UEs Timed Up and Go (TUG) Score 12.6 Comments without AD, no LOB PT-OP-G Mobility & Gait Start: 04/28/23 12:54 Freq: Status: Active Protocol: Document 05/26/23 13:08 AB (Rec: 05/26/23 14:24 AB [id number]) OP Gait Assessment Assistive Devices Assistive Device None Gait Deviations General Gait Pattern Decreased Feet Clearance Factors Limiting Gait Function Factors Limiting Gait Function Decreased Strength Comments Gait Comments toe-out of LLE, decreased terminal knee extension in stance phase bilaterally PT-OP-K Range of Motion Start: 04/28/23 12:54 Freq: Status: Active Protocol: Document 05/26/23 13:08 AB (Rec: 05/26/23 14:24 AB [id number]) Hip Goniometric Range of Motion Hip Right Active Hip ROM WFL No Testing Position Sitting Flexion w/Knee Flexed 125 Extension 0 Internal Rotation 32 External Rotation 28 Comments flexion in supine; ABD not tested due to time constraints Left Active Testing Position Supine Flexion w/Knee Flexed 125 Extension 0 Internal Rotation 35 External Rotation 30 Comments flexion in supine; ABD not tested due to time constraints PT-OP-M Strength Start: 04/28/23 12:54 Freq: Status: Active Protocol: Document 05/26/23 13:08 AB (Rec: 05/26/23 14:24 AB [id number]) Hip Strength Hip Manual Muscle Testing Right Flexion (L2) 4 Good Extension (S1) 4- Good- Abduction 4- Good- Adduction 4- Good- External Rotation 4- Good- Internal Rotation 4 Good Comments Denies pain Left Flexion (L2) 5 Normal Extension (S1) 4 Good Abduction 4- Good- Adduction 4- Good- External Rotation 4+ Good+ Internal Rotation 4+ Good+ Comments Denies pain Knee Strength Knee Manual Muscle Testing Left Flexion (S2) 5 Normal Extension (L3) 5 Normal Right Flexion (S2) 4+ Good+ Extension (L3) 5 Normal PT-OP-Q Treatments Start: 04/28/23 12:54 Freq: Status: Active Protocol: Document 06/02/23 13:08 AB (Rec: 06/02/23 15:10 AB [id number]) Cardio Equipment Recumbent Stepper ([employer]) Duration (Minutes) 6 Therapeutic Exercises Standing Exercises 6 Standing Exercise Name Side Step Ups Resistance 7# Equipment Used 6 step Reps/Minutes 1x10 ea 5 Standing Exercise Name SLR Side bilateral Resistance peach TB at ankles Reps/Minutes 1x10 4 Standing Exercise Name Hip ext Side bilateral Resistance [place] TB at ankles Reps/Minutes 1x10 Comments ea 3 Standing Exercise Name Hip ABD Side bilateral Resistance [place] TB at ankles Reps/Minutes 1x10 ea 2 Standing Exercise Name Step ups Resistance 7# DB Equipment Used 6 step with 1 hand rail Reps/Minutes 1x10 ea Comments DB in opposite hand 1 Standing Exercise Name STS Resistance [place] TB above knees Reps/Minutes 1x8 Comments With BUE support PT-OP-T Assessment and Plan Start: 04/28/23 12:54 Freq: Status: Active Protocol: Document 06/02/23 13:08 AB (Rec: 06/02/23 15:10 AB [id number]) Physical Therapy Assessment Goals Five Impairment LEFS score Short Term Goal (STG) Pt's LEFS score to improve to 46/80 or better to show improving symptoms, level of function and QOL. STG Duration 4 Deicer Finisher Goal (LTG) Pt's LEFS score to improve to 56/80 or better to show improving symptoms, level of function and QOL. LTG Duration 8 Four Impairment TUG time Short Term Goal (STG) Pt to perform TUG in 13 seconds or better with SPC without LOB to show decreasing risk for falls. STG Duration 4 Deicer Finisher Goal (LTG) Pt to perform TUG in 12 seconds or better with SPC without LOB to show decreased risk for falls. LTG Duration 8 Three Impairment 30 sec STS score Short Term Goal (STG) Pt to perform 11 STS in 30 seconds without use of compensatory stratetgies to maintain his balance and through full ROM to show decreasing risk for falls. STG Duration 4 Fci Goal (LTG) Pt to perform 12 STS in 30 seconds without use of compensatory stratetgies to maintain his balance and through full ROM to show decreased risk for falls. LTG Duration 8 Two Impairment Hip AROM deficits Short Term Goal (STG) Pt's hip ER and IR AROM to improve to 25 degrees or better to improve ability to perform ADLs, IADLs and functional mobility, and to improve his gait mechanics. STG Duration 4 Deicer Finisher Goal (LTG) Pt's hip ER and IR AROM to improve to 30 degrees or better to improve ability to perform ADLs, IADLs and functional mobility, and to improve his gait mechanics. LTG Duration 8 One Impairment Hip AROM deficits Short Term Goal (STG) Pt's hip flexion AROM to improve to 100 degrees or better to improve ability to perform ADLs, IADLs and functional mobility, and to improve his gait mechanics. STG Duration 4 Deicer Finisher Goal (LTG) Pt's hip flexion AROM to improve to 115 degrees or better to improve ability to perform ADLs, IADLs and functional mobility, and to improve his gait mechanics. LTG Duration 8 Assessment Summary Assessment Reviewed exercise progressions made last visit (addition of TB for standing strengthening exercises). However, the pt requires extended rest breaks due to SOB and fatigue. The pt would benefit from continued progression to more functional exercises next visit, but may be limited by SOB symptoms, therefore these symptoms should continue to be monitored. Physical Therapy Plan Frequency and Duration Frequency of Treatment 2x/Week Duration of treatment (weeks) 8 Plan of Care Start Date 04/28/23 Plan of Care End Date 06/23/23 Therapeutic Interventions Therapeutic Interventions Balance Training,Gait Training ,Home Exercise Program,Manual Therapy,Neuromuscular Re- education,Patient/Caregiver Education,Self-Care/Home Management,Soft Tissue Mobilization,Taping, Therapeutic Activities, Therapeutic Exercises Modalities Cold Pack/Ice Massage,Electric Stimulation,Hot Packs Next Visit Focus/Plan Next Note Type Treatment Note Next Visit Plan Progress to more challenging LE strength exercises.
--- NOTE | 2023-06-05 14:42 | PT.OTN ---
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 He was then discharged to SNF due to deficits, he also recieved a PT eval however it was determined outpatient PT. Currently he no longer has any hip pain but he reports feeling week and unbalanced, especially when walking. He has some difficulty ascending and descending stairs, in order to get to his room. THe pt denies having any pain symptoms currently, but reports he feels stiff in the mornings. Prior Treatments and Tests R [facility] for 10 days post surgery Current Functional Impairments (Reported) Functional Limitations- ADL's IND with all ADLs Functional Limitations- Mobility/Gait Uses SPC for ambulation of household and community distances Functional Limitations- Work/School N/A Functional Limitations- Recreation/ Not able to participate in Hobbies recreational activities such as walking on trails Functional Limitations- Other Ascends/descends stairs (14 steps inside house; 3 [place] house) with step to step pattern using both HRs inside and outside PT-OP-C Subjective Start: 04/28/23 12:54 Freq: Status: Active Protocol: Document 06/05/23 13:52 SW (Rec: 06/05/23 14:42 SW [id number]) OP-PT Subjective Patient Comments Patient Comments Pt reports it doesn't take much for him to panting. Patient reports sleeping until apt. Feels ok to participate in PT this afternoon. Pt reports he is done with wound care, now has velcro compression wraps. PT-OP-D Balance Start: 04/28/23 12:54 Freq: Status: Active Protocol: Document 05/26/23 14:25 AB (Rec: 05/26/23 14:26 AB [id number]) Balance Tests Single Limb Standing Single Limb- Right NT today Single Limb- Left NT today PT-OP-E Functional Tests Start: 04/28/23 12:54 Freq: Status: Active Protocol: Document 05/26/23 13:08 AB (Rec: 05/26/23 14:24 AB [id number]) Functional Tests 30 Second Sit to Stand Test Score 12 Comments did not use UEs Timed Up and Go (TUG) Score 12.6 Comments without AD, no LOB PT-OP-G Mobility & Gait Start: 04/28/23 12:54 Freq: Status: Active Protocol: Document 05/26/23 13:08 AB (Rec: 05/26/23 14:24 AB [id number]) OP Gait Assessment Assistive Devices Assistive Device None Gait Deviations General Gait Pattern Decreased Feet Clearance Factors Limiting Gait Function Factors Limiting Gait Function Decreased Strength Comments Gait Comments toe-out of LLE, decreased terminal knee extension in stance phase bilaterally PT-OP-K Range of Motion Start: 04/28/23 12:54 Freq: Status: Active Protocol: Document 05/26/23 13:08 AB (Rec: 05/26/23 14:24 AB [id number]) Hip Goniometric Range of Motion Hip Right Active Hip ROM WFL No Testing Position Sitting Flexion w/Knee Flexed 125 Extension 0 Internal Rotation 32 External Rotation 28 Comments flexion in supine; ABD not tested due to time constraints Left Active Testing Position Supine Flexion w/Knee Flexed 125 Extension 0 Internal Rotation 35 External Rotation 30 Comments flexion in supine; ABD not tested due to time constraints PT-OP-M Strength Start: 04/28/23 12:54 Freq: Status: Active Protocol: Document 05/26/23 13:08 AB (Rec: 05/26/23 14:24 AB [id number]) Hip Strength Hip Manual Muscle Testing Right Flexion (L2) 4 Good Extension (S1) 4- Good- Abduction 4- Good- Adduction 4- Good- External Rotation 4- Good- Internal Rotation 4 Good Comments Denies pain Left Flexion (L2) 5 Normal Extension (S1) 4 Good Abduction 4- Good- Adduction 4- Good- External Rotation 4+ Good+ Internal Rotation 4+ Good+ Comments Denies pain Knee Strength Knee Manual Muscle Testing Left Flexion (S2) 5 Normal Extension (L3) 5 Normal Right Flexion (S2) 4+ Good+ Extension (L3) 5 Normal PT-OP-Q Treatments Start: 04/28/23 12:54 Freq: Status: Active Protocol: Document 06/05/23 13:52 (Rec: 06/05/23 14:42 [id number]) Cardio Equipment Recumbent Elliptical ([employer]) Duration (Minutes) 7 Therapeutic Exercises Standing Exercises 6 Standing Exercise Name Side Step Ups Resistance 7# Equipment Used 6 step Reps/Minutes 1x10 ea Squats Resistance 5# Equipment Used plastic crate, 5# ankle weight Reps/Minutes 2x5 Comments Squat to pickling tank operator box, set on high table then set back down on floor 5 Standing Exercise Name SLR Side bilateral Resistance peach TB at ankles Reps/Minutes 1x10 4 Standing Exercise Name Hip ext Side bilateral Resistance [place] TB at ankles Reps/Minutes 1x10 Comments ea 3 Standing Exercise Name Hip ABD Side bilateral Resistance [place] TB at ankles Reps/Minutes 1x10 ea 2 Standing Exercise Name Step ups Resistance 7# DB Equipment Used 6 step with 1 hand rail Reps/Minutes 1x10 ea Comments DB in opposite hand 1 Standing Exercise Name STS Resistance [place] TB above knees Reps/Minutes 1x8 Comments With BUE support PT-OP-T Assessment and Plan Start: 04/28/23 12:54 Freq: Status: Active Protocol: Document 06/05/23 13:52 (Rec: 06/05/23 14:42 [id number]) Physical Therapy Assessment Goals Five Impairment LEFS score Short Term Goal (STG) Pt's LEFS score to improve to 46/80 or better to show improving symptoms, level of function and QOL. STG Duration 4 Dice Dealer Goal (LTG) Pt's LEFS score to improve to 56/80 or better to show improving symptoms, level of function and QOL. LTG Duration 8 Four Impairment TUG time Short Term Goal (STG) Pt to perform TUG in 13 seconds or better with SPC without LOB to show decreasing risk for falls. STG Duration 4 Dice Dealer Goal (LTG) Pt to perform TUG in 12 seconds or better with SPC without LOB to show decreased risk for falls. LTG Duration 8 Three Impairment 30 sec STS score Short Term Goal (STG) Pt to perform 11 STS in 30 seconds without use of compensatory stratetgies to maintain his balance and through full ROM to show decreasing risk for falls. STG Duration 4 Shelter Goal (LTG) Pt to perform 12 STS in 30 seconds without use of compensatory stratetgies to maintain his balance and through full ROM to show decreased risk for falls. LTG Duration 8 Two Impairment Hip AROM deficits Short Term Goal (STG) Pt's hip ER and IR AROM to improve to 25 degrees or better to improve ability to perform ADLs, IADLs and functional mobility, and to improve his gait mechanics. STG Duration 4 Dice Dealer Goal (LTG) Pt's hip ER and IR AROM to improve to 30 degrees or better to improve ability to perform ADLs, IADLs and functional mobility, and to improve his gait mechanics. LTG Duration 8 One Impairment Hip AROM deficits Short Term Goal (STG) Pt's hip flexion AROM to improve to 100 degrees or better to improve ability to perform ADLs, IADLs and functional mobility, and to improve his gait mechanics. STG Duration 4 Dice Dealer Goal (LTG) Pt's hip flexion AROM to improve to 115 degrees or better to improve ability to perform ADLs, IADLs and functional mobility, and to improve his gait mechanics. LTG Duration 8 Assessment Summary Assessment Pt had been sleeping almost all day prior to session. Pt SOB continues to be a limiting factor, quick to fatigue requiring frequent seated rest breaks. Patient had decreased power when ascending from sitting to standing throughout the session. Reviewed exercises, unable to progress to more functional strengthening today. Pt reports he feels more confident with stair training, he is now able to go up and down stairs more frequently without having to think about them as much. Physical Therapy Plan Frequency and Duration Frequency of Treatment 2x/Week Duration of treatment (weeks) 8 Plan of Care Start Date 04/28/23 Plan of Care End Date 06/23/23 Therapeutic Interventions Therapeutic Interventions Balance Training,Gait Training ,Home Exercise Program,Manual Therapy,Neuromuscular Re- education,Patient/Caregiver Education,Self-Care/Home Management,Soft Tissue Mobilization,Taping, Therapeutic Activities, Therapeutic Exercises Modalities Cold Pack/Ice Massage,Electric Stimulation,Hot Packs Next Visit Focus/Plan Next Note Type Treatment Note Next Visit Plan Progress to more challenging LE strength exercises.
--- NOTE | 2023-06-09 15:04 | PT.OTN ---
Current Diagnoses Unilateral primary osteoarthritis, right hip (06/09/23) Weakness (06/09/23) Presence of right artificial hip joint (06/09/23) Physical Therapy Treatment Note PT-OP-A Visit Information Start: 04/28/23 12:54 Freq: Status: Active Protocol: Document 06/09/23 13:53 AB (Rec: 06/09/23 14:58 AB [id number]) Out-Patient Physical Therapy Visit Information Visit Information Visit Type Treatment Note Visit Start Time 13:45 Visit Stop Time 14:30 Total Visit Minutes 45 Visit Number 13 PT-OP-B Current Condition Start: 04/28/23 12:54 Freq: Status: Active Protocol: Document 05/26/23 13:08 AB (Rec: 05/26/23 14:24 AB [id number]) Current Condition History of Current Condition Onset Date 03/21/23 History of Current Condition Pt underwent R YAZMIN (anterior approach) on 03/21/23. He was then discharged to SNF due to deficits, he also received a PT eval however it was determined outpatient PT. Currently he no longer has any hip pain but he reports feeling week and unbalanced, especially when walking. He has some difficulty ascending and descending stairs, in order to get to his room. THe pt denies having any pain symptoms currently, but reports he feels stiff in the mornings. Prior Treatments and Tests R [facility] for 10 days post surgery Current Functional Impairments (Reported) Functional Limitations- ADL's IND with all ADLs Functional Limitations- Mobility/Gait Uses SPC for ambulation of household and community distances Functional Limitations- Work/School N/A Functional Limitations- Recreation/ Not able to participate in Hobbies recreational activities such as walking on trails Functional Limitations- Other Ascends/descends stairs (14 steps inside house; 3 [place] house) with step to step pattern using both HRs inside and outside PT-OP-C Subjective Start: 04/28/23 12:54 Freq: Status: Active Protocol: Document 06/09/23 13:53 AB (Rec: 06/09/23 14:58 AB [id number]) OP-PT Subjective Patient Comments Patient Comments The pt reports no significant change in his SOB symptoms. He reports he feels much more comfortable walking on all types of surfaces and going up /down stairs. PT-OP-D Balance Start: 04/28/23 12:54 Freq: Status: Active Protocol: Document 05/26/23 14:25 AB (Rec: 05/26/23 14:26 AB [id number]) Balance Tests Single Limb Standing Single Limb- Right NT today Single Limb- Left NT today PT-OP-E Functional Tests Start: 04/28/23 12:54 Freq: Status: Active Protocol: Document 05/26/23 13:08 AB (Rec: 05/26/23 14:24 AB [id number]) Functional Tests 30 Second Sit to Stand Test Score 12 Comments did not use UEs Timed Up and Go (TUG) Score 12.6 Comments without AD, no LOB PT-OP-G Mobility & Gait Start: 04/28/23 12:54 Freq: Status: Active Protocol: Document 05/26/23 13:08 AB (Rec: 05/26/23 14:24 AB [id number]) OP Gait Assessment Assistive Devices Assistive Device None Gait Deviations General Gait Pattern Decreased Feet Clearance Factors Limiting Gait Function Factors Limiting Gait Function Decreased Strength Comments Gait Comments toe-out of LLE, decreased terminal knee extension in stance phase bilaterally PT-OP-K Range of Motion Start: 04/28/23 12:54 Freq: Status: Active Protocol: Document 05/26/23 13:08 AB (Rec: 05/26/23 14:24 AB [id number]) Hip Goniometric Range of Motion Hip Right Active Hip ROM WFL No Testing Position Sitting Flexion w/Knee Flexed 125 Extension 0 Internal Rotation 32 External Rotation 28 Comments flexion in supine; ABD not tested due to time constraints Left Active Testing Position Supine Flexion w/Knee Flexed 125 Extension 0 Internal Rotation 35 External Rotation 30 Comments flexion in supine; ABD not tested due to time constraints PT-OP-M Strength Start: 04/28/23 12:54 Freq: Status: Active Protocol: Document 05/26/23 13:08 AB (Rec: 05/26/23 14:24 AB [id number]) Hip Strength Hip Manual Muscle Testing Right Flexion (L2) 4 Good Extension (S1) 4- Good- Abduction 4- Good- Adduction 4- Good- External Rotation 4- Good- Internal Rotation 4 Good Comments Denies pain Left Flexion (L2) 5 Normal Extension (S1) 4 Good Abduction 4- Good- Adduction 4- Good- External Rotation 4+ Good+ Internal Rotation 4+ Good+ Comments Denies pain Knee Strength Knee Manual Muscle Testing Left Flexion (S2) 5 Normal Extension (L3) 5 Normal Right Flexion (S2) 4+ Good+ Extension (L3) 5 Normal PT-OP-Q Treatments Start: 04/28/23 12:54 Freq: Status: Active Protocol: Document 06/09/23 13:53 AB (Rec: 06/09/23 14:58 AB [id number]) Cardio Equipment Recumbent Stepper (Sci-Fit) Duration (Minutes) 8 Gym Equipment Sport Cord fwd/bwd walking Cord/Resistance red Reps/Duration x10 ea Comments focus on maintaining balance when walking with and without resistance Therapeutic Activity Therapeutic Activity Stairs Name Ascending/descending stairs Reps/Minutes 2x3 laps Comments Pt is carrying 5# DB; done to simulate carrying objects up/ down a staircase to improve endurance Self-Care/Home Management Treatment Education Other Education Pt educated on pursed lip breathing, including how to incorporate it during activity . PT-OP-T Assessment and Plan Start: 04/28/23 12:54 Freq: Status: Active Protocol: Document 06/09/23 13:53 AB (Rec: 06/09/23 14:58 AB [id number]) Physical Therapy Assessment Goals Five Impairment LEFS score Short Term Goal (STG) Pt's LEFS score to improve to 46/80 or better to show improving symptoms, level of function and QOL. STG Duration 4 Mcfp Goal (LTG) Pt's LEFS score to improve to 56/80 or better to show improving symptoms, level of function and QOL. LTG Duration 8 Four Impairment TUG time Short Term Goal (STG) Pt to perform TUG in 13 seconds or better with SPC without LOB to show decreasing risk for falls. STG Duration 4 Mcfp Goal (LTG) Pt to perform TUG in 12 seconds or better with SPC without LOB to show decreased risk for falls. LTG Duration 8 Three Impairment 30 sec STS score Short Term Goal (STG) Pt to perform 11 STS in 30 seconds without use of compensatory strategies to maintain his balance and through full ROM to show decreasing risk for falls. STG Duration 4 Taxi Truck Driver Goal (LTG) Pt to perform 12 STS in 30 seconds without use of compensatory strategies to maintain his balance and through full ROM to show decreased risk for falls. LTG Duration 8 Two Impairment Hip AROM deficits Short Term Goal (STG) Pt's hip ER and IR AROM to improve to 25 degrees or better to improve ability to perform ADLs, IADLs and functional mobility, and to improve his gait mechanics. STG Duration 4 Mcfp Goal (LTG) Pt's hip ER and IR AROM to improve to 30 degrees or better to improve ability to perform ADLs, IADLs and functional mobility, and to improve his gait mechanics. LTG Duration 8 One Impairment Hip AROM deficits Short Term Goal (STG) Pt's hip flexion AROM to improve to 100 degrees or better to improve ability to perform ADLs, IADLs and functional mobility, and to improve his gait mechanics. STG Duration 4 Taxi Truck Driver Goal (LTG) Pt's hip flexion AROM to improve to 115 degrees or better to improve ability to perform ADLs, IADLs and functional mobility, and to improve his gait mechanics. LTG Duration 8 Assessment Summary Assessment The pt was educated on avoiding panting when he gets short of breath with activity, and was also educated on pursed lip breathing to help improve his O2 uptake. However, the pt continues to require extended rest breaks to recover. The pt continues to benefit from skilled PT to improve his remaining deficits.
--- NOTE | 2023-06-12 16:46 | PT.OTN ---
Current Diagnoses Unilateral primary osteoarthritis, right hip (06/12/23) Weakness (06/12/23) Presence of right artificial hip joint (06/12/23) Physical Therapy Treatment Note PT-OP-A Visit Information Start: 04/28/23 12:54 Freq: Status: Active Protocol: Document 06/12/23 13:47 SW (Rec: 06/12/23 14:43 SW [id number]) Out-Patient Physical Therapy Visit Information Visit Information Visit Type Treatment Note Visit Start Time 13:45 Visit Stop Time 14:30 Total Visit Minutes 45 Visit Number 14 Number of ART GLASS DESIGNER Visits 1 PT-OP-B Current Condition Start: 04/28/23 12:54 Freq: Status: Active Protocol: Document 05/26/23 13:08 AB (Rec: 05/26/23 14:24 AB [id number]) Current Condition History of Current Condition Onset Date 03/21/23 History of Current Condition Pt underwent R YAZMIN (anterior approach) on 03/21/23. He was then discharged to SNF due to deficits, he also recieved a PT eval however it was determined outpatient PT. Currently he no longer has any hip pain but he reports feeling week and unbalanced, especially when walking. He has some difficulty ascending and descending stairs, in order to get to his room. THe pt denies having any pain symptoms currently, but reports he feels stiff in the mornings. Prior Treatments and Tests [facility] for 10 days post surgery Current Functional Impairments (Reported) Functional Limitations- ADL's IND with all ADLs Functional Limitations- Mobility/Gait Uses SPC for ambulation of household and community distances Functional Limitations- Work/School N/A Functional Limitations- Recreation/ Not able to participate in Hobbies recreational activities such as walking on trails Functional Limitations- Other Ascends/descends stairs (14 steps inside house; 3 [place] house) with step to step pattern using both HRs inside and outside PT-OP-C Subjective Start: 04/28/23 12:54 Freq: Status: Active Protocol: Document 06/12/23 13:47 SW (Rec: 06/12/23 14:43 SW [id number]) OP-PT Subjective Patient Comments Patient Comments Pt reports he had visit with his primary care provider, whom ordered echo cardiogram, and pt reports no change in medication. No change in SOB, reports feeling better today. PT-OP-D Balance Start: 04/28/23 12:54 Freq: Status: Active Protocol: Document 05/26/23 14:25 AB (Rec: 05/26/23 14:26 AB [id number]) Balance Tests Single Limb Standing Single Limb- Right NT today Single Limb- Left NT today PT-OP-E Functional Tests Start: 04/28/23 12:54 Freq: Status: Active Protocol: Document 05/26/23 13:08 AB (Rec: 05/26/23 14:24 AB [id number]) Functional Tests 30 Second Sit to Stand Test Score 12 Comments did not use UEs Timed Up and Go (TUG) Score 12.6 Comments without AD, no LOB PT-OP-G Mobility & Gait Start: 04/28/23 12:54 Freq: Status: Active Protocol: Document 05/26/23 13:08 AB (Rec: 05/26/23 14:24 AB [id number]) OP Gait Assessment Assistive Devices Assistive Device None Gait Deviations General Gait Pattern Decreased Feet Clearance Factors Limiting Gait Function Factors Limiting Gait Function Decreased Strength Comments Gait Comments toe-out of LLE, decreased terminal knee extension in stance phase bilaterally PT-OP-K Range of Motion Start: 04/28/23 12:54 Freq: Status: Active Protocol: Document 05/26/23 13:08 AB (Rec: 05/26/23 14:24 AB [id number]) Hip Goniometric Range of Motion Hip Right Active Hip ROM WFL No Testing Position Sitting Flexion w/Knee Flexed 125 Extension 0 Internal Rotation 32 External Rotation 28 Comments flexion in supine; ABD not tested due to time constraints Left Active Testing Position Supine Flexion w/Knee Flexed 125 Extension 0 Internal Rotation 35 External Rotation 30 Comments flexion in supine; ABD not tested due to time constraints PT-OP-M Strength Start: 04/28/23 12:54 Freq: Status: Active Protocol: Document 05/26/23 13:08 AB (Rec: 05/26/23 14:24 AB [id number]) Hip Strength Hip Manual Muscle Testing Right Flexion (L2) 4 Good Extension (S1) 4- Good- Abduction 4- Good- Adduction 4- Good- External Rotation 4- Good- Internal Rotation 4 Good Comments Denies pain Left Flexion (L2) 5 Normal Extension (S1) 4 Good Abduction 4- Good- Adduction 4- Good- External Rotation 4+ Good+ Internal Rotation 4+ Good+ Comments Denies pain Knee Strength Knee Manual Muscle Testing Left Flexion (S2) 5 Normal Extension (L3) 5 Normal Right Flexion (S2) 4+ Good+ Extension (L3) 5 Normal PT-OP-Q Treatments Start: 04/28/23 12:54 Freq: Status: Active Protocol: Document 06/12/23 13:47 SW (Rec: 06/12/23 14:43 [id number]) Cardio Equipment Recumbent Elliptical ([employer]) Duration (Minutes) 8 Resistance 4 Seat Position 13 Gym Equipment Sport Cord fwd/bwd walking Cord/Resistance red Reps/Duration x10 ea Comments focus on maintaining balance when walking with and without resistance Therapeutic Activity Therapeutic Activity Stairs Name Ascending/descending stairs Reps/Minutes 2x3 laps Comments Pt is carrying 5# DB; done to simulate carrying objects up/ down a staircase to improve endurance Gait Training Gait Activity Suitcase carry Description 5# Device Used No AD Level of Assistance SBA, gait belt donned Surface uneven, outdoor ambulation Distance/Duration 10 min Treatment Focus Gait mechanics, endurance, and balance on uneven terrain PT-OP-T Assessment and Plan Start: 04/28/23 12:54 Freq: Status: Active Protocol: Document 06/12/23 13:47 (Rec: 06/12/23 14:43 [id number]) Physical Therapy Assessment Goals Five Impairment LEFS score Short Term Goal (STG) Pt's LEFS score to improve to 46/80 or better to show improving symptoms, level of function and QOL. STG Duration 4 Halfway Goal (LTG) Pt's LEFS score to improve to 56/80 or better to show improving symptoms, level of function and QOL. LTG Duration 8 Four Impairment TUG time Short Term Goal (STG) Pt to perform TUG in 13 seconds or better with SPC without LOB to show decreasing risk for falls. STG Duration 4 Cancer Center Director Goal (LTG) Pt to perform TUG in 12 seconds or better with SPC without LOB to show decreased risk for falls. LTG Duration 8 Three Impairment 30 sec STS score Short Term Goal (STG) Pt to perform 11 STS in 30 seconds without use of compensatory stratetgies to maintain his balance and through full ROM to show decreasing risk for falls. STG Duration 4 Cancer Center Director Goal (LTG) Pt to perform 12 STS in 30 seconds without use of compensatory stratetgies to maintain his balance and through full ROM to show decreased risk for falls. LTG Duration 8 Two Impairment Hip AROM deficits Short Term Goal (STG) Pt's hip ER and IR AROM to improve to 25 degrees or better to improve ability to perform ADLs, IADLs and functional mobility, and to improve his gait mechanics. STG Duration 4 Halfway Goal (LTG) Pt's hip ER and IR AROM to improve to 30 degrees or better to improve ability to perform ADLs, IADLs and functional mobility, and to improve his gait mechanics. LTG Duration 8 One Impairment Hip AROM deficits Short Term Goal (STG) Pt's hip flexion AROM to improve to 100 degrees or better to improve ability to perform ADLs, IADLs and functional mobility, and to improve his gait mechanics. STG Duration 4 Halfway Goal (LTG) Pt's hip flexion AROM to improve to 115 degrees or better to improve ability to perform ADLs, IADLs and functional mobility, and to improve his gait mechanics. LTG Duration 8 Assessment Summary Assessment Pt able to tolerate session today with decreased number of seated rest breaks and SOB. Gait training outdoor this session for LE strength and endurance, balance on uneven terrain, and gait mechanics, no AD, tolerated well. Physical Therapy Plan Frequency and Duration Frequency of Treatment 2x/Week Duration of treatment (weeks) 8 Plan of Care Start Date 04/28/23 Plan of Care End Date 06/23/23 Therapeutic Interventions Therapeutic Interventions Balance Training,Gait Training ,Home Exercise Program,Manual Therapy,Neuromuscular Re- education,Patient/Caregiver Education,Self-Care/Home Management,Soft Tissue Mobilization,Taping, Therapeutic Activities, Therapeutic Exercises Modalities Cold Pack/Ice Massage,Electric Stimulation,Hot Packs
--- NOTE | 2023-06-16 17:28 | PT.OTN ---
Current Diagnoses Unilateral primary osteoarthritis, right hip (06/16/23) Weakness (06/16/23) Presence of right artificial hip joint (06/16/23) Physical Therapy Treatment Note PT-OP-A Visit Information Start: 04/28/23 12:54 Freq: Status: Active Protocol: Document 06/16/23 13:59 AB (Rec: 06/16/23 14:21 AB [id number]) Out-Patient Physical Therapy Visit Information Visit Information Visit Type Treatment Note Visit Start Time 13:45 Visit Stop Time 14:30 Total Visit Minutes 45 Visit Number 14 Number of MACHINIST BENCH Visits 1 Evaluation Information Evaluation Date 04/28/23 PT-OP-B Current Condition Start: 04/28/23 12:54 Freq: Status: Active Protocol: Document 05/26/23 13:08 AB (Rec: 05/26/23 14:24 AB [id number]) Current Condition History of Current Condition Onset Date 03/21/23 History of Current Condition Pt underwent R YAZMIN (anterior approach) on 03/21/23. He was then discharged to SNF due to deficits, he also recieved a PT eval however it was determined outpatient PT. Currently he no longer has any hip pain but he reports feeling week and unbalanced, especially when walking. He has some difficulty ascending and descending stairs, in order to get to his room. THe pt denies having any pain symptoms currently, but reports he feels stiff in the mornings. Prior Treatments and Tests R [facility] for 10 days post surgery Current Functional Impairments (Reported) Functional Limitations- ADL's IND with all ADLs Functional Limitations- Mobility/Gait Uses SPC for ambulation of household and community distances Functional Limitations- Work/School N/A Functional Limitations- Recreation/ Not able to participate in Hobbies recreational activities such as walking on trails Functional Limitations- Other Ascends/descends stairs (14 steps inside house; 3 [place] house) with step to step pattern using both HRs inside and outside PT-OP-C Subjective Start: 04/28/23 12:54 Freq: Status: Active Protocol: Document 06/16/23 17:19 AB (Rec: 06/16/23 17:20 AB [id number]) OP-PT Subjective Patient Comments Patient Comments Pt reports feeling like his SOB is improving. He also states he recently saw Dr. Keane, and workup was done to further determine CHF diagnosis. In regards to his hip, he reports he continues to feel more steady when walking over challenging terrains. Patient Reported Progress Improving PT-OP-D Balance Start: 04/28/23 12:54 Freq: Status: Active Protocol: Document 05/26/23 14:25 AB (Rec: 05/26/23 14:26 AB [id number]) Balance Tests Single Limb Standing Single Limb- Right NT today Single Limb- Left NT today PT-OP-E Functional Tests Start: 04/28/23 12:54 Freq: Status: Active Protocol: Document 05/26/23 13:08 AB (Rec: 05/26/23 14:24 AB [id number]) Functional Tests 30 Second Sit to Stand Test Score 12 Comments did not use UEs Timed Up and Go (TUG) Score 12.6 Comments without AD, no LOB PT-OP-G Mobility & Gait Start: 04/28/23 12:54 Freq: Status: Active Protocol: Document 05/26/23 13:08 AB (Rec: 05/26/23 14:24 AB [id number]) OP Gait Assessment Assistive Devices Assistive Device None Gait Deviations General Gait Pattern Decreased Feet Clearance Factors Limiting Gait Function Factors Limiting Gait Function Decreased Strength Comments Gait Comments toe-out of LLE, decreased terminal knee extension in stance phase bilaterally PT-OP-K Range of Motion Start: 04/28/23 12:54 Freq: Status: Active Protocol: Document 05/26/23 13:08 AB (Rec: 05/26/23 14:24 AB [id number]) Hip Goniometric Range of Motion Hip Right Active Hip ROM WFL No Testing Position Sitting Flexion w/Knee Flexed 125 Extension 0 Internal Rotation 32 External Rotation 28 Comments flexion in supine; ABD not tested due to time constraints Left Active Testing Position Supine Flexion w/Knee Flexed 125 Extension 0 Internal Rotation 35 External Rotation 30 Comments flexion in supine; ABD not tested due to time constraints PT-OP-M Strength Start: 04/28/23 12:54 Freq: Status: Active Protocol: Document 05/26/23 13:08 AB (Rec: 05/26/23 14:24 AB [id number]) Hip Strength Hip Manual Muscle Testing Right Flexion (L2) 4 Good Extension (S1) 4- Good- Abduction 4- Good- Adduction 4- Good- External Rotation 4- Good- Internal Rotation 4 Good Comments Denies pain Left Flexion (L2) 5 Normal Extension (S1) 4 Good Abduction 4- Good- Adduction 4- Good- External Rotation 4+ Good+ Internal Rotation 4+ Good+ Comments Denies pain Knee Strength Knee Manual Muscle Testing Left Flexion (S2) 5 Normal Extension (L3) 5 Normal Right Flexion (S2) 4+ Good+ Extension (L3) 5 Normal PT-OP-Q Treatments Start: 04/28/23 12:54 Freq: Status: Active Protocol: Document 06/16/23 13:59 AB (Rec: 06/16/23 14:21 AB [id number]) Cardio Equipment Recumbent Elliptical ([employer]) Duration (Minutes) 8 Resistance 4 Seat Position 13 Therapeutic Exercises Standing Exercises Crab walks Resistance none Reps/Minutes x 2 laps 6 Standing Exercise Name Side Step Ups Equipment Used 6 step Reps/Minutes 2x10 ea 1 Standing Exercise Name STS Reps/Minutes 2x8 Comments no UEs Self-Care/Home Management Treatment Education Other Education Pt re-educated on pursed lip breathing, including how to incorporate it during activity . Pt also educated on d/c planning (plan to d/c on 06/23 as per POC) PT-OP-T Assessment and Plan Start: 04/28/23 12:54 Freq: Status: Active Protocol: Document 06/16/23 13:59 AB (Rec: 06/16/23 14:21 AB [id number]) Physical Therapy Assessment Goals Five Impairment LEFS score Short Term Goal (STG) Pt's LEFS score to improve to 46/80 or better to show improving symptoms, level of function and QOL. STG Duration 4 Aesthetics Instructor Goal (LTG) Pt's LEFS score to improve to 56/80 or better to show improving symptoms, level of function and QOL. LTG Duration 8 Four Impairment TUG time Short Term Goal (STG) Pt to perform TUG in 13 seconds or better with SPC without LOB to show decreasing risk for falls. STG Duration 4 Fdc Goal (LTG) Pt to perform TUG in 12 seconds or better with SPC without LOB to show decreased risk for falls. LTG Duration 8 Three Impairment 30 sec STS score Short Term Goal (STG) Pt to perform 11 STS in 30 seconds without use of compensatory strategies to maintain his balance and through full ROM to show decreasing risk for falls. STG Duration 4 Aesthetics Instructor Goal (LTG) Pt to perform 12 STS in 30 seconds without use of compensatory stratetgies to maintain his balance and through full ROM to show decreased risk for falls. LTG Duration 8 Two Impairment Hip AROM deficits Short Term Goal (STG) Pt's hip ER and IR AROM to improve to 25 degrees or better to improve ability to perform ADLs, IADLs and functional mobility, and to improve his gait mechanics. STG Duration 4 Aesthetics Instructor Goal (LTG) Pt's hip ER and IR AROM to improve to 30 degrees or better to improve ability to perform ADLs, IADLs and functional mobility, and to improve his gait mechanics. LTG Duration 8 One Impairment Hip AROM deficits Short Term Goal (STG) Pt's hip flexion AROM to improve to 100 degrees or better to improve ability to perform ADLs, IADLs and functional mobility, and to improve his gait mechanics. STG Duration 4 Fdc Goal (LTG) Pt's hip flexion AROM to improve to 115 degrees or better to improve ability to perform ADLs, IADLs and functional mobility, and to improve his gait mechanics. LTG Duration 8 Assessment Summary Assessment The pt was progressed in his LE strengthening exercises by adding crab walks and STS without use of UEs. He demonstrates significant improvement in his ability to perform STS, as he is able to perform smoothly and without needing UE for any support. However, the pt continues to be limited in his tolerance to activity by his symptoms of SOB, as he requires extended rest breaks to recover from fatigue. The pt continues to benefit from skilled PT at this time, planning on discharging to independent [facility] on 06/23 as per POC. Physical Therapy Plan Frequency and Duration Frequency of Treatment 2x/Week Duration of treatment (weeks) 8 Plan of Care Start Date 04/28/23 Plan of Care End Date 06/23/23 Therapeutic Interventions Therapeutic Interventions Balance Training,Gait Training ,Home Exercise Program,Manual Therapy,Neuromuscular Re- education,Patient/Caregiver Education,Self-Care/Home Management,Soft Tissue Mobilization,Taping, Therapeutic Activities, Therapeutic Exercises Modalities Cold Pack/Ice Massage,Electric Stimulation,Hot Packs Next Visit Focus/Plan Next Note Type Treatment Note Next Visit Plan Progress to more challenging LE strength exercises as able
--- NOTE | 2023-06-23 17:14 | PT.OTN ---
Current Diagnoses Unilateral primary osteoarthritis, right hip (06/23/23) Weakness (06/23/23) Presence of right artificial hip joint (06/23/23) Physical Therapy Treatment Note PT-OP-A Visit Information Start: 04/28/23 12:54 Freq: Status: Active Protocol: Document 06/23/23 13:57 AB (Rec: 06/23/23 17:14 AB [id number]) Out-Patient Physical Therapy Visit Information Visit Information Visit Type Discharge Summary Visit Start Time 13:45 Visit Stop Time 14:30 Total Visit Minutes 45 Visit Number 16 Evaluation Information Evaluation Date 04/28/23 PT-OP-B Current Condition Start: 04/28/23 12:54 Freq: Status: Active Protocol: Document 06/23/23 13:57 AB (Rec: 06/23/23 17:14 AB [id number]) Current Condition History of Current Condition Onset Date 03/21/23 History of Current Condition Pt underwent R YAZMIN (anterior approach) on 03/21/23. He was then discharged to SNF due to deficits, he also recieved a PT eval however it was determined outpatient PT. Currently he no longer has any hip pain but he reports feeling week and unbalanced, especially when walking. He has some difficulty ascending and descending stairs, in order to get to his room. THe pt denies having any pain symptoms currently, but reports he feels stiff in the mornings. Prior Treatments and Tests R YAZMIN SNF for 10 days post surgery Prior Functional Status Baseline Function- ADL's Independent Baseline Function- Mobility Independent Baseline Function- Gait Started to use SPC about 1 month before surgery due to pain and imbalance Baseline Function- Work/School Retired Baseline Function- Recreation/Hobbies Walking on trails Current Functional Impairments (Reported) Functional Limitations- ADL's IND with all ADLs Functional Limitations- Mobility/Gait IND Functional Limitations- Work/School N/A Functional Limitations- Recreation/ Has returned to all Hobbies recreational activities PT-OP-C Subjective Start: 04/28/23 12:54 Freq: Status: Active Protocol: Document 06/23/23 13:57 AB (Rec: 06/23/23 17:14 AB [id number]) OP-PT Subjective Patient Comments Patient Reported Progress Improving Patient Questionnaires Lower Extremity Functional Scale LEFS Score 56/80 LEFS Impairment 20 to 39% Impaired (Score 48- 62) PT-OP-D Balance Start: 04/28/23 12:54 Freq: Status: Active Protocol: Document 05/26/23 14:25 AB (Rec: 05/26/23 14:26 AB [id number]) Balance Tests Single Limb Standing Single Limb- Right NT today Single Limb- Left NT today PT-OP-E Functional Tests Start: 04/28/23 12:54 Freq: Status: Active Protocol: Document 06/23/23 13:57 AB (Rec: 06/23/23 17:14 AB [id number]) Functional Tests 30 Second Sit to Stand Test Score 8 Comments did not use UEs; limited by SOB Five Times Sit to Stand Test Score 12.3 sec Comments did not use UEs PT-OP-G Mobility & Gait Start: 04/28/23 12:54 Freq: Status: Active Protocol: Document 06/23/23 13:57 AB (Rec: 06/23/23 17:14 AB [id number]) OP Gait Assessment Assistive Devices Assistive Device None Gait Deviations General Gait Pattern Within Normal Limits PT-OP-K Range of Motion Start: 04/28/23 12:54 Freq: Status: Active Protocol: Document 06/23/23 13:57 AB (Rec: 06/23/23 17:14 AB [id number]) Hip Goniometric Range of Motion Hip Right Active Hip ROM WFL Yes Testing Position Sitting Flexion w/Knee Flexed 125 Extension 0 Internal Rotation 40 External Rotation 35 Left Active Hip ROM WFL Yes Testing Position Supine Flexion w/Knee Flexed 125 Extension 0 Internal Rotation 40 External Rotation 40 PT-OP-M Strength Start: 04/28/23 12:54 Freq: Status: Active Protocol: Document 06/23/23 13:57 AB (Rec: 06/23/23 17:14 AB [id number]) Hip Strength Hip Manual Muscle Testing Right Flexion (L2) 4+ Good+ Extension (S1) 4 Good Abduction 4+ Good+ Adduction 5 Normal External Rotation 5 Normal Internal Rotation 5 Normal Comments Denies pain Left Flexion (L2) 5 Normal Extension (S1) 4 Good Abduction 4 Good Adduction 4+ Good+ External Rotation 5 Normal Internal Rotation 5 Normal Comments Denies pain Knee Strength Knee Manual Muscle Testing Left Flexion (S2) 5 Normal Extension (L3) 5 Normal Right Flexion (S2) 4+ Good+ Extension (L3) 5 Normal PT-OP-Q Treatments Start: 04/28/23 12:54 Freq: Status: Active Protocol: Document 06/23/23 13:57 AB (Rec: 06/23/23 17:14 AB [id number]) Therapeutic Exercises Standing Exercises 5 Standing Exercise Name SLR Side bilateral Resistance orange TB at ankles Reps/Minutes 2x10 4 Standing Exercise Name Hip ext Side bilateral Resistance orange TB at ankles Reps/Minutes 2x10 Comments ea 3 Standing Exercise Name Hip ABD Side bilateral Resistance orangeTB at ankles Reps/Minutes 2x10 ea 1 Standing Exercise Name STS Reps/Minutes 2x8 Comments no UEs PT-OP-T Assessment and Plan Start: 04/28/23 12:54 Freq: Status: Active Protocol: Document 06/23/23 13:57 AB (Rec: 06/23/23 17:14 AB [id number]) Physical Therapy Assessment Goals Five Impairment LEFS score Short Term Goal (STG) Pt's LEFS score to improve to 46/80 or better to show improving symptoms, level of function and QOL. STG Duration 4 Group Home Goal (LTG) Pt's LEFS score to improve to 56/80 or better to show improving symptoms, level of function and QOL. LTG Duration 8 Four Impairment TUG time Short Term Goal (STG) Pt to perform TUG in 13 seconds or better with SPC without LOB to show decreasing risk for falls. STG Duration 4 Hand Frame Surgical Elastic Knitter Goal (LTG) Pt to perform TUG in 12 seconds or better with SPC without LOB to show decreased risk for falls. LTG Duration 8 Three Impairment 30 sec STS score Short Term Goal (STG) Pt to perform 11 STS in 30 seconds without use of compensatory strategies to maintain his balance and through full ROM to show decreasing risk for falls. STG Duration 4 Hand Frame Surgical Elastic Knitter Goal (LTG) Pt to perform 12 STS in 30 seconds without use of compensatory stratetgies to maintain his balance and through full ROM to show decreased risk for falls. LTG Duration 8 Two Impairment Hip AROM deficits Short Term Goal (STG) Pt's hip ER and IR AROM to improve to 25 degrees or better to improve ability to perform ADLs, IADLs and functional mobility, and to improve his gait mechanics. STG Duration 4 Hand Frame Surgical Elastic Knitter Goal (LTG) Pt's hip ER and IR AROM to improve to 30 degrees or better to improve ability to perform ADLs, IADLs and functional mobility, and to improve his gait mechanics. LTG Duration 8 One Impairment Hip AROM deficits Short Term Goal (STG) Pt's hip flexion AROM to improve to 100 degrees or better to improve ability to perform ADLs, IADLs and functional mobility, and to improve his gait mechanics. STG Duration 4 Group Home Goal (LTG) Pt's hip flexion AROM to improve to 115 degrees or better to improve ability to perform ADLs, IADLs and functional mobility, and to improve his gait mechanics. LTG Duration 8 Assessment Summary Assessment Marvel has completed 16 visits of skilled PT to address deficits secondary to right YAZMIN. The pt has made significant improvements in his hip AROM, muscular strength, gait mechanics, and in his ability to perform his ADLs and IADLs. The pt also reports a significant subjective improvement in hip symptoms, and states the only issue holding him back at this point is his CHF related SOB. Based on his improvements and achievements of goals, the pt is being discharged from skilled PT to his independent HEP. He was educated on continuing HEP, and was instructed to return to MD if he has new onset of symptoms. Physical Therapy Plan Discharge Physical Therapy Discharge Reasons Goals Met Next Visit Focus/Plan Next Visit Plan Pt is being discharged from skilled PT.
== END 2023-06-30 12:03 | disposition home or self-care (01) ==
LOC: PHYS 13:45
PROVIDERS: Family Provider Internal Medicine; PCP Internal Medicine; Referring Provider Internal Medicine; Visit Provider Internal Medicine
DX: M16.11 Unilateral primary osteoarthritis, right hip (principal); Z96.641 Presence of right artificial hip joint; R53.1 Weakness
CPT/HCPCS: 97110; 97112; 97116; 97162; 97530; 97535

== ENCOUNTER → 2023-07-01 09:18 | Outpatient (CLI) | payer OTHER, SELFPAY ==
[2023-06-23 16:00] VITALS: BMI 21.1
--- NOTE | 2023-07-01 09:20 | DI.ECHO.S_ITS ---
[facility] +---------+ [facility] +---------+ : : [address] : : : : [id number] : : : : Phone: [phone]+ Echocardiogram Report + + :Name: MARIE ADAMS Study Date: 07/01/2023 Height: 72 in : :[facility] ReadingLocation: Weight: 153 lb : : Gender: Male BSA: 1.9 m2 : :: 1945 Age: 78 yrs BP: 114/77 mmHg: :Reason For Study: HEART FAILURE : :Ordering Physician: STEVE, : :NISA Performed By: Luz Huynh : :Referring: NISA WILSON : + + Interpretation Summary The left ventricle is borderline dilated. The ejection fraction is estimated to be 20-25%. There is severe global hypokinesis of the left ventricle. Diastolic function could not be accurately assessed due to atrial fibrillation. The right ventricle is moderately dilated. Right ventricular systolic function is moderately reduced. There is marked biatrial enlargement. A patent foramen ovale is present. There is mild to moderate mitral regurgitation. There is mild aortic regurgitation. The right ventricular systolic pressure is estimated to be at least 36 mmHg based on an estimated right atrial pressure of 8 mm Hg. There is a trivial pericardial effusion noted. There is a small left-sided pleural effusion. Compared to the prior study dated 11/19/2018, the biventricular systolic function has decreased. Procedure: A two-dimensional transthoracic echocardiogram with color flow and Doppler was performed. The study quality was technically adequate. Comparison is made with the echocardiogram of 11/19/2018. The patient had occasional PVCs during the exam. The patient was in atrial fibrillation with heart rates between 77-94 bpm during the exam. Left Ventricle: The left ventricle is borderline dilated. There is normal left ventricular wall thickness. A false chord is noted (normal variant). Trabeculae near apex are visualized. No thrombus is observed. The ejection fraction is estimated to be 20-25%. There is severe global hypokinesis of the left ventricle. Diastolic function could not be accurately assessed due to atrial fibrillation. Right Ventricle: The right ventricle is moderately dilated. Right ventricular systolic function is moderately reduced. Atria: There is marked biatrial enlargement. A patent foramen ovale is present. The interatrial septum bows toward right atrium consistent with elevated left atrial pressure. Mitral Valve: There is mild mitral annular calcification. The mitral valve leaflets appear mildly thickened, but open well. There is mild to moderate mitral regurgitation. Aortic Valve: The aortic valve is trileaflet. The aortic valve is mildly calcified. The peak aortic velocity is 1.9 m/sec. The aortic valve mean gradient is 7 mmHg. There is mild aortic regurgitation. Tricuspid Valve: The tricuspid valve is normal in structure and function. There is mild tricuspid regurgitation. The right ventricular systolic pressure is estimated to be at least 36 mmHg based on an estimated right atrial pressure of 8 mm Hg. Pulmonic Valve: The pulmonic valve leaflets are thin and pliable; valve motion is normal. There is trace pulmonic regurgitation. Great Vessels: The aortic root is normal size. The dimensions of the ascending aorta are normal. The IVC is dilated (diameter is greater than 2.1 cm) yet it collapses greater than 50% with a sniff. This suggests a right atrial pressure of 8 mm Hg. Pericardium/ Pleura There is a trivial pericardial effusion noted. There is a small left-sided pleural effusion. MMode/2D Measurements & Calculations LVIDd: 5.8 cm LVOT diam: 2.0 cm LVIDs: 5.2 cm Ao root diam: 3.7 cm FS: 10.6 % asc Aorta Diam: 3.6 cm EPSS: 1.3 cm IVSd: 1.1 cm LVPWd: 1.1 cm LV west. diameter/BSA (cm/m^2): 3.1 LV sys. diameter/BSA (cm/m^2): 2.7 LA A2 area: 42.0 cm2 RA long axis: 7.9 cm LA A4 area: 51.6 cm2 RA area: 41.1 cm2 LA length (vol): 7.9 cm RA vol: 182.0 ml LA vol: 231.8 ml RA : 95.7 ml/m2 LA vol index: 121.9 ml/m2 IVC diam: 2.6 cm RVD1 (basal): 5.0 cm RVD2 (mid): 4.1 cm TAPSE: 1.4 cm Doppler Measurements & Calculations Ao V2 max: 186.1 cm/sec LVOT Max Prasanna: 70.2 cm/sec Ao V2 mean: 127.3 cm/sec LV V1 max P.0 mmHg Ao max P.8 mmHg LV V1 VTI: 12.5 cm Ao mean P.2 mmHg ELIAN(I,D): 1.2 cm2 Ao V2 VTI: 33.1 cm ELIAN(V,D): 1.2 cm2 sev ratio: 0.38 ELIAN indexed to BSA (cm^2/m^2): 0.61 AI P1/2t: 458.1 msec AI dec slope: 224.0 cm/sec2 MV E max prasanna: 111.5 cm/sec TR max prasanna: 264.1 cm/sec MV A max prasanna: 0.99 cm/sec TR max P.9 mmHg MV E/A: 112.4 PA V2 max: 94.6 cm/sec Med Peak E' Prasanna: 5.7 cm/sec PA V2 mean: 59.5 cm/sec E/E' med: 19.4 PA mean P.7 mmHg Lat Peak E' Prasanna: 10.8 cm/sec PA pr(Accel): 36.2 mmHg E/E' lat: 10.3 E/e' average: 14.9 MV dec time: 0.17 sec MVA(VTI): 1.4 cm2 MV V2 mean: 70.8 cm/sec SV(LVOT): 38.6 ml MV mean P.5 mmHg MV V2 VTI: 27.2 cm Reading Physician:12:16 PM
== END ==
PROVIDERS: Family Provider Internal Medicine; PCP Internal Medicine; Referring Provider Internal Medicine; Visit Provider Internal Medicine
DX: I50.9 Heart failure, unspecified (principal); J81.1 Chronic pulmonary edema; I51.7 Cardiomegaly; I34.0 Nonrheumatic mitral (valve) insufficiency; I35.1 Nonrheumatic aortic (valve) insufficiency; I31.39 Other pericardial effusion (noninflammatory)
CPT/HCPCS: 93306

== ENCOUNTER → 2023-07-14 10:35 | Outpatient (CLI) | payer OTHER, SELFPAY ==
[2023-06-23 16:00] VITALS: BMI 21.1
[2023-07-14 11:50] LABS: Hematocrit 42.1 % (41-53); Hemoglobin 13.9 g/dL (13.5-17.5); Mean Corpuscular HGB Conc 33.1 % (30-36); Mean Corpuscular Hemoglobin 32.9 PG (26-34); Mean Corpuscular Volume 99.4 fL (80-100); Platelet Count 166 X10^3/uL (150-400); Red Blood Cell Count 4.23 X10^6/uL (4.5-5.9); Red Cell Distribution Width 13.3 % (11.6-14.8); White Blood Cell Count 4.8 X10^3/uL (4.5-11.0)
[2023-07-14 12:06] LABS: Blood Urea Nitrogen 34 mg/dL (9-20); Carbon Dioxide 32 mmol/L (22-32); Chloride 101 mmol/L (98-107); Estimated Glomerular Filt Rate > 60 mL/min (>60); Glucose 82 mg/dL (80-110); HEMOLYSIS < 15 (0-50); Potassium 4.2 mmol/L (3.4-5.1); Sodium 139 mmol/L (137-145)
== END ==
PROVIDERS: Family Provider Internal Medicine; PCP Internal Medicine; Referring Provider Internal Medicine; Visit Provider Internal Medicine
DX: I50.22 Chronic systolic (congestive) heart failure (principal)
CPT/HCPCS: 36415; 80048; 85027

== ENCOUNTER → 2023-09-18 16:07 | Outpatient (CLI) | payer OTHER, SELFPAY ==
[2023-06-23 16:00] VITALS: BMI 21.1
[2023-09-18 17:24] LABS: Hemoglobin 14.6 g/dL (13.5-17.5); Mean Corpuscular HGB Conc 33.1 % (30-36); Mean Corpuscular Hemoglobin 32.8 PG (26-34); Mean Corpuscular Volume 99.1 fL (80-100); Platelet Count 135 X10^3/uL (150-400); Red Blood Cell Count 4.44 X10^6/uL (4.5-5.9); Red Cell Distribution Width 14.6 % (11.6-14.8)
[2023-09-18 17:32] LABS: HEMOLYSIS < 15 (0-50); Iron 118 ug/dL (49-181)
[2023-09-18 17:35] LABS: Alanine Aminotransferase 18 IU/L (<50); Albumin 4.2 g/dL (3.5-5.0); Albumin Globulin Ratio 1.1 (1.0-2.8); Alkaline Phosphatase 96 U/L (38-126); BUN Creatinine Ratio 36.6 (6-22); Bilirubin Total 1.4 mg/dL (0.2-1.3); Blood Urea Nitrogen 30 mg/dL (9-20); Calcium 9.1 mg/dL (8.4-10.2); Carbon Dioxide 30 mmol/L (22-32); Chloride 103 mmol/L (98-107); Estimated Glomerular Filt Rate > 60 mL/min (>60); Globulin 3.8 g/dL (1.7-4.1); Glucose 94 mg/dL (80-110); HEMOLYSIS < 15 (0-50); Potassium 3.8 mmol/L (3.4-5.1); Sodium 142 mmol/L (137-145)
[2023-09-18 17:42] LABS: Percent Iron Saturation 32 % (20-50); Total Iron Binding Capacity 368 ug/dL (261-462); Transferrin 308 mg/dL (206-381)
[2023-09-18 17:48] LABS: Vitamin D 25 Hydroxy (D3) 34.3 ng/mL (30.0-100.0)
[2023-09-18 18:04] LABS: Thyroid Stimulating Hormone 2.25 uIU/mL (0.47-4.68)
[2023-09-19 15:35] LABS: Aspartate Aminotransferase 37 IU/L (17-59)
== END ==
LOC: LAB 16:15
PROVIDERS: Internal Medicine Cardiovascular Disease; Family Provider Internal Medicine; PCP Internal Medicine; Referring Provider Internal Medicine; Visit Provider Internal Medicine
DX: I50.20 Unspecified systolic (congestive) heart failure (principal); I48.20 Chronic atrial fibrillation, unspecified
CPT/HCPCS: 36415; 80053; 82306; 83540; 83550; 84443; 85027

== ENCOUNTER → 2023-09-19 11:17 | Outpatient (CLI) | payer OTHER, SELFPAY ==
[2023-06-23 16:00] VITALS: BMI 21.1
[2023-09-19 13:31] LABS: Cholesterol 133 mg/dL (140-199); HDL Cholesterol 57 mg/dL (40-60); LDL Cholesterol Calculated 67 mg/dL (<100); Triglycerides 47 mg/dL (35-150)
[2023-09-19 13:54] LABS: Prostate Specific Antigen 0.275 ng/mL (0.10-4.00)
== END ==
LOC: LAB 11:18
PROVIDERS: Family Provider Internal Medicine; PCP Internal Medicine; Referring Provider Internal Medicine; Visit Provider Internal Medicine
DX: I50.22 Chronic systolic (congestive) heart failure (principal); N40.1 Benign prostatic hyperplasia with lower urinary tract symptoms; N13.8 Other obstructive and reflux uropathy; E78.2 Mixed hyperlipidemia
CPT/HCPCS: 36415; 80061; 84153

== ENCOUNTER → 2023-10-30 12:47 | Outpatient (CLI) | payer OTHER, SELFPAY ==
[2023-06-23 16:00] VITALS: BMI 21.1
[2023-10-30 13:53] LABS: Alanine Aminotransferase 19 IU/L (<50); Albumin 4.3 g/dL (3.5-5.0); Albumin Globulin Ratio 1.1 (1.0-2.8); Alkaline Phosphatase 97 U/L (38-126); Aspartate Aminotransferase 31 IU/L (17-59); BUN Creatinine Ratio 52.8 (6-22); Bilirubin Total 0.8 mg/dL (0.2-1.3); Blood Urea Nitrogen 47 mg/dL (9-20); Calcium 8.9 mg/dL (8.4-10.2); Carbon Dioxide 27 mmol/L (22-32); Chloride 103 mmol/L (98-107); Estimated Glomerular Filt Rate > 60 mL/min (>60); Globulin 3.9 g/dL (1.7-4.1); Glucose 74 mg/dL (80-110); HEMOLYSIS < 15 (0-50); Potassium 4.2 mmol/L (3.4-5.1); Sodium 142 mmol/L (137-145); Total Protein 8.2 g/dL (6.3-8.2)
== END ==
PROVIDERS: Family Provider Internal Medicine; PCP Internal Medicine; Referring Provider Nurse Practitioner; Visit Provider Nurse Practitioner
DX: I50.20 Unspecified systolic (congestive) heart failure (principal); I50.22 Chronic systolic (congestive) heart failure; N40.1 Benign prostatic hyperplasia with lower urinary tract symptoms; E78.2 Mixed hyperlipidemia; N13.8 Other obstructive and reflux uropathy
CPT/HCPCS: 36415; 80053

== ENCOUNTER → 2024-03-04 11:03 | Outpatient (CLI) | payer OTHER, SELFPAY ==
[2023-06-23 16:00] VITALS: BMI 21.1
[2024-03-04 12:22] LABS: BUN Creatinine Ratio 26.9 (6-22); Blood Urea Nitrogen 25 mg/dL (9-20); Calcium 8.8 mg/dL (8.4-10.2); Carbon Dioxide 28 mmol/L (22-32); Chloride 106 mmol/L (98-107); Estimated Glomerular Filt Rate > 60 mL/min (>60); Glucose 89 mg/dL (80-110); HEMOLYSIS < 15 (0-50); Magnesium 2.4 mg/dL (1.6-2.3); Potassium 4.2 mmol/L (3.4-5.1); Sodium 141 mmol/L (137-145)
== END ==
PROVIDERS: Family Provider Internal Medicine; PCP Internal Medicine; Referring Provider Internal Medicine Cardiovascular Disease; Visit Provider Internal Medicine Cardiovascular Disease
DX: I50.20 Unspecified systolic (congestive) heart failure (principal); I48.20 Chronic atrial fibrillation, unspecified
CPT/HCPCS: 36415; 80048; 83735

== ENCOUNTER → 2024-09-21 15:38 | Outpatient (CLI) | payer OTHER, SELFPAY ==
[2023-06-23 16:00] VITALS: BMI 21.1
[2024-09-21 17:12] LABS: Hematocrit 44.9 % (41-53); Mean Corpuscular HGB Conc 33.4 % (30-36); Mean Corpuscular Hemoglobin 33.4 PG (26-34); Platelet Count 159 X10^3/uL (150-400); Red Blood Cell Count 4.49 X10^6/uL (4.5-5.9); Red Cell Distribution Width 13.7 % (11.6-14.8)
[2024-09-21 21:06] LABS: Aspartate Aminotransferase 30 IU/L (17-59); BUN Creatinine Ratio 33.7 (6-22); Blood Urea Nitrogen 30 mg/dL (9-20); Calcium 9.2 mg/dL (8.4-10.2); Carbon Dioxide 28 mmol/L (22-32); Chloride 104 mmol/L (98-107); Cholesterol 175 mg/dL (140-199); Estimated Glomerular Filt Rate > 60 mL/min (>60); Glucose 91 mg/dL (80-110); HDL Cholesterol 64 mg/dL (40-60); HEMOLYSIS < 15 (0-50); LDL Cholesterol Calculated 83 mg/dL (<100); Potassium 4.3 mmol/L (3.4-5.1); Sodium 141 mmol/L (137-145); Triglycerides 138 mg/dL (35-150)
[2024-09-21 21:37] LABS: Prostate Specific Antigen 0.369 ng/mL (0.10-4.00)
== END ==
PROVIDERS: Family Provider Internal Medicine; PCP Internal Medicine; Referring Provider Internal Medicine; Visit Provider Internal Medicine
DX: N40.1 Benign prostatic hyperplasia with lower urinary tract symptoms (principal); N13.8 Other obstructive and reflux uropathy; I48.20 Chronic atrial fibrillation, unspecified; E78.2 Mixed hyperlipidemia
CPT/HCPCS: 36415; 80048; 80061; 84153; 84450; 85027

== ENCOUNTER 2025-01-10 19:00 | Emergency (ER) | payer OTHER, SELFPAY ==
[2023-06-23 16:00] VITALS: BMI 21.1
[2025-01-10 19:03] VITALS: BP 130/74; PULSE 68; RESP 16; TEMP 36.8; O2SAT 97; BMI 19.8
--- NOTE | 2025-01-10 19:10 | DI.RAD.S_ITS ---
PROCEDURE: XR WRIST LT MIN 3V INDICATIONS: fall on outstretched hand; deformity of left wrist TECHNIQUE: 3 views of the wrist were acquired. COMPARISON: [facility], [facility], XR FOREARM LT 2V, 01/10/2025, 19:08. FINDINGS: Bones: Comminuted dorsally displaced distal radial fracture. Intra-articular extension is present. Soft tissues: No suspicious soft tissue calcifications. IMPRESSION: Comminuted and dorsally displaced distal radial fracture. Dictated by: Leesa Parnell M.D. on 01/10/2025 at 19:51 Approved by: Leesa Parnell M.D. on 01/10/2025 at 19:51
--- NOTE | 2025-01-10 19:10 | DI.RAD.S_ITS ---
PROCEDURE: XR FOREARM LT 2V INDICATIONS: fall on outstretched hand; deformity of left wrist TECHNIQUE: 2 views of the forearm were acquired. COMPARISON: [facility], [facility], XR WRIST LT MIN 3V, 01/10/2025, 19:08. FINDINGS: Bones: Comminuted and dorsally displaced distal radial fracture. Intra-articular extension is present. Soft tissues: No suspicious soft tissue calcifications or masses. IMPRESSION: Comminuted dorsally displaced distal radial fracture. Dictated by: Leesa Parnell M.D. on 01/10/2025 at 19:50 Approved by: Leesa Parnell M.D. on 01/10/2025 at 19:51
[2025-01-10 23:37] VITALS: BP 143/83; PULSE 72; RESP 17; O2SAT 97
[2025-01-10 23:42] VITALS: PULSE 67
[2025-01-11] VITALS (16 sets, daily range): BP systolic 130–166; BP diastolic 67–104; PULSE 63–84; RESP 16–39; O2SAT 96–98
--- NOTE | 2025-01-11 00:07 | ED.UPPEXIN ---
HPI - Extremity Injury (Upper) General Chief Complaint: Extremity Injury, Upper Stated Complaint: Fall, left wrist injury, on blood thinners Time Seen by Provider: 01/10/25 23:45 Source: patient Mode of arrival: Ambulatory History of Present Illness HPI narrative: 80-year-old male left-hand with history of early parkinsonism, had ground level fall at local restaurant earlier this evening, with pain and swelling to his left wrist, no other injuries evident. He takes Pradaxa for history of atrial fibrillation. Did not strike his head. Does not have neck pain. No loss of consciousness. No nausea or vomiting. Denies pain to his chest abdomen and pelvis. Denies pain to his neck upper back mid lower back. No lower extremity injuries. The remainder of his left upper extremity he is not seem to be injured, denies pain to his left mid proximal forearm, elbow, upper arm, shoulder. Related Data Home Medications Medication Instructions Recorded Confirmed triamcinolone acetonide 0.1 % 1 applic topical BID PRN 04/09/23 09/21/24 topical cream melatonin 5 mg tablet 5 mg PO BEDTIME PRN 07/14/23 09/21/24 empagliflozin 10 mg tablet 10 mg PO DAILY 12/01/23 09/21/24 (Jardiance) lisinopril 5 mg tablet 5 mg PO DAILY 12/01/23 09/21/24 metoprolol succinate 50 mg 50 mg PO DAILY 12/01/23 09/21/24 tablet,extended release 24 hr furosemide 40 mg tablet 20 mg PO DAILY 03/17/24 09/21/24 spironolactone 25 mg tablet 12.5 mg PO DAILY 03/17/24 09/21/24 dupilumab 300 mg/2 mL subcutaneous mg SUBCUT 06/22/24 09/21/24 pen injector (Dupixent) Previous Rx's Medication Instructions Recorded Parking Permit... #1 ea 02/14/23 lorazepam 0.5 mg tablet 0.5 mg PO BID PRN anxiety #30 tabs 04/23/23 dabigatran etexilate 150 mg 150 mg PO BID #180 caps 08/09/24 capsule (Pradaxa) levetiracetam 500 mg tablet 500 mg PO BID #180 tabs 08/30/24 sertraline 100 mg tablet 100 mg PO DAILY #90 tabs 09/30/24 hydrocodone 5 mg-acetaminophen 325 1 tab PO Q6H PRN pain #14 tabs 01/11/25 mg tablet Allergies Allergy/AdvReac Type Severity Reaction Status Date / Time phenytoin AdvReac Severe Mood swings Verified 09/21/24 14:56 Patient History Medical History (Updated 01/11/25 @ 01:16 by Robbi Farley MD) Eczematous dermatitis Do not resuscitate Systolic CHF, chronic Obsessive compulsive disorder Depression, major, recurrent, moderate Chronic pruritic rash in adult ENMA (obstructive sleep apnea) Amblyopia Venous (peripheral) insufficiency BPH w urinary obs/LUTS Osteoarthritis of right hip Hammertoe of right foot Osteopenia Fractures (~1966) Measles (~1957) Chicken pox (~1955) Seizure disorder (~2004) Gout (~1980) Mixed hyperlipidemia Essential hypertension (~1975) Chronic anticoagulation History of pulmonary embolism (~2011) Chronic atrial fibrillation Surgical History Hx of colonoscopy Hx of craniotomy (2003) Anesthesia History of Achilles tendon repair (~2007) Brain abscess (~2003) History of hernia repair (~1975) Social History household members: spouse alcohol intake: current Smoking Status: Never smoker alcohol intake frequency: 0-2 drinks per day Exam Narrative Exam Narrative: GENERAL: Well-developed patient, in mild distress. HEAD: Atraumatic. Normocephalic. EYES: Pupils equal round and reactive. Extraocular motions intact. No scleral icterus. No injection or drainage. ENT: Nose without bleeding, purulent drainage. Throat without erythema, tonsillar hypertrophy or exudate. Airway patent. NECK: Trachea midline. Non tender CARDIOVASCULAR: Regular rate and rhythm without murmurs, gallops, or rubs. RESPIRATORY: Clear to auscultation. Breath sounds equal bilaterally. No wheezes, rales, or rhonchi. GASTROINTESTINAL: Abdomen soft, non-tender, nondistended. EXTREMITIES: Tenderness and swelling with some deformity to the left distal wrist. No tenderness or deformity to the proximal forearm of the left upper extremity, elbow, upper arm, shoulder. BACK: Nontender without deformity or crepitance. No flank tenderness. NEURO: AOx3. Motor functions grossly nonfocal SKIN: No rash or erythema of visible areas Initial Vital Signs Initial Vital Signs: Vital Signs Temperature 98.2 F 01/10/25 19:03 Pulse Rate 68 01/10/25 19:03 Respiratory Rate 16 01/10/25 19:03 Blood Pressure 130/74 01/10/25 19:03 Pulse Oximetry 97 01/10/25 19:03 Oxygen Delivery Method Room Air 01/10/25 19:03 Procedures Orthopedic Fracture Reduction Fracture #1: Time of procedure: 00:10 Side: left Analgesia: procedural sedation Technique: direct manipulation and traction/counter-traction Post Reduction X-rays Demonstrate: acceptable reduction Post-reduction neuro exam: intact Post-reduction vascular exam: intact Splint Applied: Yes Patient Tolerated Procedure: Well Procedural Sedation Time of procedure: 00:10 Consent signed: Yes Time out performed: No Indication: fracture/dislocation reduction (left distal radius) Presedation Evaluation: History of parkinsonism and atrial fibrillation ASA Class: II Mallampati Airway Classification: Class I Time of Last PO Intake: 18:00 Preparation: radiation monitor applied, pulse oximeter, capnometry used, reversal agents at bedside and suction/airway equipment at bedside IV Propofol dose (mg): 80 ED Sedation Level: Moderate (Concious) Complications: significant emergence reaction (Had some emesis with suctioning, no respiratory distress, recovered to pre-sedation baseline.) Interventions: Suctioning Course Orders Ordered: Discontinued Medications Hydrocodone Bitart/Acetaminophen (Hydrocodone/Acet 5/325 Prepack) 1 bottle MISC DIRECTED ONE Stop: 01/11/25 01:17 Last Admin: 01/11/25 01:58 Dose: 1 bottle Documented By: MARCOS Propofol (Propofol 200 Mg/20 Ml Vial) 200 mg IV NOW ONE Stop: 01/10/25 23:46 Last Admin: 01/11/25 00:25 Dose: 20 mg Documented By: MARCOS Propofol (Propofol 200 Mg/20 Ml Vial) 40 mg IV NOW ONE Stop: 01/11/25 00:25 Last Admin: 01/11/25 00:24 Dose: 40 mg Documented By: MARCOS Propofol (Propofol 200 Mg/20 Ml Vial) 20 mg IV NOW ONE Stop: 01/11/25 00:31 Last Admin: 01/11/25 00:30 Dose: 20 mg Documented By: MRACOS Vital Signs Vital signs: Vital Signs - 8 hr 01/10/25 19:03 01/10/25 23:37 01/10/25 23:37 Temperature 98.2 F Pulse Rate 68 72 Pulse Rate [Left Radial] Respiratory Rate 16 17 Blood Pressure 130/74 143/83 H Pulse Oximetry 97 97 Oxygen Delivery Method Room Air Room Air 01/10/25 23:42 01/11/25 00:00 01/11/25 00:00 Temperature Pulse Rate 63 Pulse Rate [Left Radial] 67 Respiratory Rate Blood Pressure 130/76 Pulse Oximetry 96 Oxygen Delivery Method 01/11/25 00:20 01/11/25 00:25 01/11/25 00:30 Temperature Pulse Rate 72 84 81 Pulse Rate [Left Radial] Respiratory Rate 20 22 25 H Blood Pressure 149/84 H 147/78 H 144/72 H Pulse Oximetry 97 96 96 Oxygen Delivery Method 01/11/25 00:38 01/11/25 00:38 01/11/25 00:40 Temperature Pulse Rate 69 Pulse Rate [Left Radial] Respiratory Rate 39 H Blood Pressure 166/94 H 145/89 H Pulse Oximetry 97 Oxygen Delivery Method 01/11/25 00:40 01/11/25 00:45 01/11/25 00:45 Temperature Pulse Rate 70 69 Pulse Rate [Left Radial] Respiratory Rate 28 H 26 H Blood Pressure 145/75 H Pulse Oximetry 98 98 Oxygen Delivery Method 01/11/25 00:50 01/11/25 00:50 01/11/25 00:56 Temperature Pulse Rate 68 Pulse Rate [Left Radial] Respiratory Rate 25 H Blood Pressure 149/67 H 162/88 H Pulse Oximetry 98 Oxygen Delivery Method 01/11/25 00:56 01/11/25 01:00 01/11/25 01:00 Temperature Pulse Rate 82 69 Pulse Rate [Left Radial] Respiratory Rate 28 H 16 Blood Pressure 144/78 H Pulse Oximetry 97 98 Oxygen Delivery Method Room Air 01/11/25 01:05 01/11/25 01:05 Temperature Pulse Rate 65 Pulse Rate [Left Radial] Respiratory Rate 17 Blood Pressure 147/78 H Pulse Oximetry 98 Oxygen Delivery Method Room Air MDM - Extremity Injury (Upper) Imaging Data Extremity x-ray #1: Radiologist's Impression: [address] [address] XRay Report Signed Patient: Marvel Parekh MR#: [id number] : 1945 Acct:[id number] Age/Sex: 79 / M Date of Service: 01/10/25 Loc: ED Accession Number: [id number] Procedure: XR wrist LT min 3V Ordering Provider: Robbi Farley MD PROCEDURE: XR WRIST LT MIN 3V INDICATIONS: fall on outstretched hand; deformity of left wrist TECHNIQUE: 3 views of the wrist were acquired. COMPARISON: [facility], , XR FOREARM LT 2V, 01/10/2025, 19:08. FINDINGS: Bones: Comminuted dorsally displaced distal radial fracture. Intra-articular extension is present. Soft tissues: No suspicious soft tissue calcifications. IMPRESSION: Comminuted and dorsally displaced distal radial fracture. Dictated by: Leesa Parnell M.D. on 01/10/2025 at 19:51 Approved by: Leesa Parnell M.D. on 01/10/2025 at 19:51 Extremity x-ray #2: Radiologist's Impression: Close Wrist X-Ray (Signed) Leesa Parnell - 01/10/25 Forearm X-Ray (Signed) Leesa Parnell - 01/10/25 Launch?Image [address] [address] XRay Report Signed Patient: Marvel Parekh MR#: [id number] : 1945 Acct:[id number] Age/Sex: 79 / M Date of Service: 01/10/25 Loc: ED Accession Number: [id number] Procedure: XR forearm LT 2V Ordering Provider: Robbi Farley MD PROCEDURE: XR FOREARM LT 2V INDICATIONS: fall on outstretched hand; deformity of left wrist TECHNIQUE: 2 views of the forearm were acquired. COMPARISON: [facility], , XR WRIST LT MIN 3V, 01/10/2025, 19:08. FINDINGS: Bones: Comminuted and dorsally displaced distal radial fracture. Intra-articular extension is present. Soft tissues: No suspicious soft tissue calcifications or masses. IMPRESSION: Comminuted dorsally displaced distal radial fracture. Dictated by: Leesa Parnell M.D. on 01/10/2025 at 19:50 Approved by: Leesa Parnell M.D. on 01/10/2025 at 19:51 Extremity x-ray #3: Radiologist's Impression: [address] [address] XRay Report Signed Patient: Marvel Parekh MR#: [id number] : 1945 Acct:[id number] Age/Sex: 80 / M Date of Service: 01/11/25 Loc: ED Accession Number: [id number] Procedure: XR wrist LT min 3V Ordering Provider: Robbi Farley MD PROCEDURE: XR WRIST LT MIN 3V INDICATIONS: post-reduction TECHNIQUE: 3 views of the wrist were acquired. COMPARISON: [facility], , XR WRIST LT MIN 3V, 01/10/2025, 19:08. FINDINGS: Bones: Casting material obscures fine bony detail. Distal radius fracture. Alignment is not significantly changed. There is intra-articular extension. No suspicious bony lesions. Soft tissues: No suspicious soft tissue calcifications. IMPRESSION: Distal radius fracture. Interval casting. Dictated by: Isaiah Martinez M.D. on 01/11/2025 at 1:20 Approved by: Isaiah Martinez M.D. on 01/11/2025 at 1:22 [facility] Narrative Medical decision making narrative: 80-year-old male with history of parkinsonism and atrial fibrillation on chronic anticoagulation had ground level fall with left distal wrist pain and swelling. X-rays showed distal radius comminuted fracture with impaction and angulation. Consented for reduction. IV propofol total of 80 mg given, distraction counter-traction splinting reduction, OCL splint placed. Postreduction x-rays acceptable position. Patient had emesis during sedation, suction, did not seem to have any respiratory distress, returned to preprocedural baseline. Discharged home with son. Follow up with Orthopedic surgery advised, contact information provided. Home pack pain medication hydrocodone/acetaminophen, prescription sent to his pharmacy. Follow up with Orthopedic surgery advised, likely will need surgical stabilization of this unstable comminuted impacted distal radius fracture. Contact information for Dr. Gary orthopedic surgery on-call. Home with son. Discharge Plan Departure Patient Disposition: Home Clinical Impression: Distal radius fracture, left Instructions: DI for Distal Radius Fracture Activity Restrictions/Additional Instructions: Fall forward at local restaurant with left wrist pain swelling and deformity. All abrasion to the right base of the hand with good range of motion, we would not pursue x-rays of the right hand or wrist. X-rays of the left wrist however did show comminuted fracture with impaction and angulation of the fragments of the distal radius bone. This would be better if it was lengthened in stabilized with splinting. We did conscious sedation to place splint with some improvement of position. This however is an unstable fracture and we will need surgical correction stabilization in follow up. Contact information provided for local orthopedic surgeon who was on-call. Call their office tomorrow to arrange close follow up and coordination of eventual surgical fixation stabilization procedure. Take pain medications as needed. Wear sling support, keep arm above level of your heart while sleeping if possible. Apply ice if able. Follow up with Orthopedic surgery. Return to this/nearest emergency department for any change worsening symptoms or any concerns prior. Prescriptions: New hydrocodone-acetaminophen 5-325 mg tablet 1 tab PO Q6H PRN (Reason: pain) Qty: 14 0RF No Action dabigatran etexilate [Pradaxa] 150 mg capsule 150 mg PO BID Qty: 180 3RF levetiracetam 500 mg tablet 500 mg PO BID Qty: 180 3RF sertraline 100 mg tablet 100 mg PO DAILY Qty: 90 3RF Rx Instructions: Dose increased from 50 mg to 100 mg. Please d/c the 50 mg. Thanks! (DME) Parking Permit... See Rx Instructions .Route .MEDSUPPLY Qty: 1 0RF Rx Instructions: As directed lorazepam 0.5 mg tablet 0.5 mg PO BID PRN (Reason: anxiety) Qty: 30 1RF melatonin 5 mg tablet 5 mg PO BEDTIME PRN Jardiance 10 mg tablet 10 mg PO DAILY metoprolol succinate 50 mg tablet extended release 24 hr 50 mg PO DAILY lisinopril 5 mg tablet 5 mg PO DAILY spironolactone 25 mg tablet 12.5 mg PO DAILY Dupixent Pen 300 mg/2 mL pen injector SUBCUT Patient Comments: [NO ORIGINAL SIG] triamcinolone acetonide 0.1 % cream 1 applic topical BID PRN furosemide 40 mg tablet 20 mg PO DAILY Referrals: Charles Keane MD [Primary Care Provider] - Seymour Gary MD [Physician] - Stand Alone Forms: Patient Portal/API/Survey
[2025-01-11] MEDS: propofoL 200 MG/20 ML VIAL 40 MG IV (00:24)
[2025-01-11] MEDS: propofoL 200 MG/20 ML VIAL IV (00:25)
[2025-01-11] MEDS: propofoL 200 MG/20 ML VIAL 20 MG IV (00:30)
--- NOTE | 2025-01-11 00:40 | PC.NURSE ---
Procedural sedation started 0024. Total propofol pushed IV by Dr. Farley 80mg. During procedure, pt did have some vomiting 25ml suctioned by RT. No other complications. see procedural sedation flow sheet.
--- NOTE | 2025-01-11 00:44 | DI.RAD.S_ITS ---
PROCEDURE: XR WRIST LT MIN 3V INDICATIONS: post-reduction TECHNIQUE: 3 views of the wrist were acquired. COMPARISON: [facility], CR, XR WRIST LT MIN 3V, 01/10/2025, 19:08. FINDINGS: Bones: Casting material obscures fine bony detail. Distal radius fracture. Alignment is not significantly changed. There is intra-articular extension. No suspicious bony lesions. Soft tissues: No suspicious soft tissue calcifications. IMPRESSION: Distal radius fracture. Interval casting. Dictated by: Isaiah Martinez M.D. on 01/11/2025 at 1:20 Approved by: Isaiah Martinez M.D. on 01/11/2025 at 1:22
[2025-01-11] MEDS: HYDROCODONE/ACET 5/325 PREPACK 1 BOTTLE MISC (01:58)
== END 2025-01-11 02:20 | disposition home or self-care (01) ==
PROVIDERS: Emergency Provider Emergency Medicine; Family Provider Internal Medicine; PCP Internal Medicine
DX: S52.502A Unspecified fracture of the lower end of left radius, initial encounter for closed fracture (principal); W18.30XA Fall on same level, unspecified, initial encounter
CPT/HCPCS: 25605; 29105; 73090; 73110; 99152; 99284; J2704

== ENCOUNTER → 2025-01-18 10:45 | Outpatient (CLI) | payer OTHER, SELFPAY ==
[2023-06-23 16:00] VITALS: BMI 21.1
[2025-01-18 11:06] LABS: Hemoglobin 14.4 g/dL (13.5-17.5); Mean Corpuscular HGB Conc 33.5 % (30-36); Mean Corpuscular Hemoglobin 33.9 PG (26-34); Mean Corpuscular Volume 101.3 fL (80-100); Platelet Count 193 X10^3/uL (150-400); Red Blood Cell Count 4.25 X10^6/uL (4.5-5.9); Red Cell Distribution Width 13.5 % (11.6-14.8); White Blood Cell Count 5.6 X10^3/uL (4.5-11.0)
[2025-01-18 11:23] LABS: Alanine Aminotransferase 17 IU/L (<50); Albumin 4.3 g/dL (3.5-5.0); Albumin Globulin Ratio 1.4 (1.0-2.8); Alkaline Phosphatase 86 U/L (38-126); Aspartate Aminotransferase 45 IU/L (17-59); Bilirubin Total 0.9 mg/dL (0.2-1.3); Blood Urea Nitrogen 30 mg/dL (9-20); Calcium 9.3 mg/dL (8.4-10.2); Carbon Dioxide 29 mmol/L (22-32); Chloride 104 mmol/L (98-107); Estimated Glomerular Filt Rate > 60 mL/min (>60); Glucose 69 mg/dL (70-99); HEMOLYSIS 30 (0-50); Potassium 4.8 mmol/L (3.4-5.1); Sodium 143 mmol/L (137-145); Total Protein 7.3 g/dL (6.3-8.2)
== END ==
PROVIDERS: Family Provider Internal Medicine; PCP Internal Medicine; Referring Provider Internal Medicine; Visit Provider Internal Medicine
DX: I48.20 Chronic atrial fibrillation, unspecified (principal); I50.22 Chronic systolic (congestive) heart failure
CPT/HCPCS: 36415; 80053; 85027